=== PATIENT | male | born 1970 | race Caucasian/White ===

== ENCOUNTER 2022-11-27 08:32 | Emergency (ER) | payer OTHER, SELFPAY ==
--- NOTE | ~2022-11-27 | XR_ITS ---
EXAMINATION: XR CHEST CLINICAL INFORMATION: Lung cancer, shortness of breath. COMPARISON: 09/03/2018 chest radiograph. TECHNIQUE: Frontal view of the chest was obtained. FINDINGS: Opacities are seen in the mid lung pop bilaterally. Opacities on the left upper and more nodular appearance. The heart is unremarkable. Superior mediastinal soft tissue fullness is noted. XR/XR chest 1V IMPRESSION: Pulmonary mediastinal findings are nonspecific and could represent an infectious/inflammatory process, but given the patient's history of cancer, findings could represent malignancy. A chest CT scan is recommended as no recent study is available for comparison.
--- NOTE | ~2022-11-27 | CT_ITS ---
EXAMINATION: CT HEAD WITHOUT CONTRAST CLINICAL INFORMATION: Right-sided weakness. Lung cancer. Rule out mass effect/stroke. COMPARISON: None available. TECHNIQUE: Contiguous axial imaging was performed from the skull base to vertex without intravenous administration of contrast. This CT examination was performed using dose optimization techniques as appropriate, variously including the following: *Automated exposure control *Adjustment of mA and/or kV according to patient size (this includes techniques or standardized protocols for targeted exams where dose is matched to indication/reason for exam; i.e. extremities or head) *Use of iterative reconstruction technique FINDINGS: There is a heterogeneous density lesion within the left parietal lobe measuring up to 2.5 cm in size surrounded by severe vasogenic edema throughout the left cerebral white matter and corpus callosum resulting in 1 cm rightward midline shift and medialization of the left hippocampus. Neurosurgical consultation and full malignancy workup advised. There is no hydrocephalus. No acute territorial infarcts. No significant soft tissue findings. Paranasal sinuses and mastoid air cells are clear. CT/CT head/brain wo IV con IMPRESSION: There is a heterogeneous density lesion within the left parietal lobe measuring up to 2.5 cm in size surrounded by severe vasogenic edema throughout the left cerebral white matter and corpus callosum resulting in 1 cm rightward midline shift and medialization of the left hippocampus/uncus. Neurosurgical consultation, a brain MRI with and without IV contrast, and full malignancy workup are advised. Findings discussed with Dr Malik at 10:44 AM on November 27, 2022.
[2022-11-27 08:39] VITALS: BP 118/83; BP 129/80; PULSE 95; RESP 29; TEMP 36.4; O2SAT 87; O2SAT 91; BMI 27.2
--- NOTE | 2022-11-27 08:40 | ED_ITS ---
HPI - Weakness General Chief complaint: Stroke Stated complaint: STROKE ALERT:LKWT THURSDAY,FALL OOB,R WEAK Time Seen by Provider: 11/27/22 08:36 Source: patient, EMS and other (Mother , daughter- Leatha Nunez ) Mode of arrival: EMS Limitations: no limitations History of Present Illness HPI Narrative: 52-year-old male who was sent to the emergency department for evaluation of falling out of bed. The paramedics noted that the patient had right facial droop, right arm and right leg weakness which the patient states started on Thursday11/21/2022 (6 days prior to evaluation). The patient was made a stroke alert however given the fact that his symptoms started 6 days prior, patient was brought to emergency room stretcher and evaluated. Patient states he does have a history of lung cancer but cannot give me any details. He states that he has been feeling weak. He states he has had a cough which is occasionally productive of blood. He feels short of breath. He has had nausea and vomiting. He states he has had intermittent abdominal pain. He denied fever or chills. The patient is not been at this facility before and he was not able to give any details about his lung cancer. The patient's mother and daughter are here but they also do not know any details about his lung cancer. They did tell me that he had a biopsy at [facility] and that his PCP who has been managin g his care is Dr. Potter. I will attempt to get information from [facility]. I did obtain a record from the patient's PCP and a record from [facility] regarding his biopsy. 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 Social history: Patient smokes daily cannot tell me how many cigarettes he smokes, he cannot tell me how long he smoked 4. He denies alcohol use but does have a history a of alcohol use disorder. Patient smokes marijuana daily. Social History Social History Alcohol intake: unknown Smoked in Last 30 Days: Yes Use of substances other than those prescribed or required for medical reasons: No Advance Directives: No Advance Directives Information Provided: Yes Physical Exam Vital Signs: Vital Signs: Last Vital Signs Temp 97.5 F 11/27/22 08:39 Pulse 104 H 11/27/22 13:34 Resp 28 H 11/27/22 13:34 BP 123/76 11/27/22 13:34 Pulse Ox 92 11/27/22 13:34 O2 Del Method Nasal Cannula 11/27/22 13:34 O2 Flow Rate 2 11/27/22 13:34 BMI result Body Mass Index 27.2 Const: Other: Awake, alert, male patient, answers questions appropriately, does not appear to be in distress HEENT: Head: Yes normal to inspection, Yes normocephalic and Yes atraumatic Ears: external ears normal General nose exam: Normal external nose present Face and sinus: Yes normal facial exam Mouth: Normal oral and palatal mucosa present Throat: Yes posterior oropharynx normal Eyes: General: appearance normal, both eyes and all related structures Neck: Neck: Yes normal visual inspection, Yes no lymphadenopathy, Yes trachea midline and Yes supple Chest: Chest palpation & inspection: normal inspection of the chest and normal palpation of entire chest wall Resp: Other: Diffuse wheezing and rhonchi, diminished breath sounds right greater than left Effort & Inspection: normal respiratory effort and able to speak in complete sentences Auscultation: clear to auscultation bilaterally Cardio: Rate: regular rate Rhythm: regular rhythm Heart sounds: S1 normal heart sound present, S2 normal heart sound present and no murmurs GI: Inspection: Yes normal to inspection Palpation (GI): Soft to palpation, nontender and no guarding Auscultation: normal bowel sounds : General: Yes no CVA tenderness Back/Spine/Pelvis: Back: no CVA tenderness Skin: General skin exam: no rashes or lesions noted Neuro: Other: Patient has a right facial droop, right arm and right lower extremity paralysis Extrem: Other: Patient does have dependent edema of his right upper and right lower extremity most likely caused by his paralysis Psych: Appearance: grossly normal Affect: normal affect Attitude: cooperative Medications Administered Generic Name Dose Route Start Last Admin Trade Name Freq PRN Reason Stop Dose Admin Lactated Ringer's 1,000 mls @ 100 mls/hr 11/27/22 13:30 11/27/22 13:33 Lr IVCONT 100 mls/hr .Q10H COOPER Administration Discontinued Medications Generic Name Dose Route Start Last Admin Trade Name Freq PRN Reason Stop Dose Admin Albuterol Sulfate 5 mg 11/27/22 08:47 11/27/22 09:57 Albuterol Sulfate 2.5 Mg/0.5 Ml Vial.Neb INHALE 11/27/22 08:48 5 mg ONCE ONE Administration Dexamethasone Sodium Phosphate 10 mg 11/27/22 11:21 11/27/22 12:04 Dexamethasone Sod Phosphate 10 Mg/Ml Vial IVPUSH 11/27/22 11:22 10 mg ONCE ONE Administration Cefepime HCl 2 gm/ Sodium 50 mls @ 100 mls/hr 11/27/22 11:21 11/27/22 12:44 Chloride IV 11/27/22 11:50 Infused ONCE ONE Infusion Levetiracetam 500 mg in 100 mls @ 400 mls/hr 11/27/22 11:47 11/27/22 12:44 Keppra IV 11/27/22 12:01 Infused ONCE ONE Infusion Lorazepam 2 mg 11/27/22 12:31 11/27/22 12:39 Lorazepam 2 Mg/Ml Vial IVPUSH 11/27/22 12:32 2 mg ONCE ONE Administration Lorazepam 1 mg 11/27/22 13:21 11/27/22 13:30 Lorazepam 2 Mg/Ml Vial IVPUSH 11/27/22 13:22 1 mg STAT STA Administration Medical Decision Making Medical Decision Making MDM Narrative: 52-year-old male with a history of alcohol use disorder, alcoholic liver cirrhosis, depression, hyperlipidemia, tobacco use disorder, non-small cell adenocarcinoma of the lung (left upper lobe) diagnosed by biopsy at [facility] on 09/05/2022-patient has received no treatment who presents emergency department for evaluation for multiple falls (patient has fallen each day x3 days and did fall today) and right facial droop with right upper and lower extremity paralysis x6 days. Patient states that he has had a productive cough is occasionally coughs up blood. He is complaining of shortness of breath and dyspnea. Patient's examination did reveal a right facial droop with right upper and lower extremity paralysis and dependent edema of these extremities. His exam was otherwise unremarkable. I ordered the following evaluation on the patient: CBC, CMP, COVID-19, lactic acid, troponin, alcohol level, lipase, PT/INR, PTT, CT scan of the brain without IV contrast, chest x-ray. Patient was placed on a cardiac and O2 saturation monitor. Patient's O2 saturation was 87% on room air and was placed on 2 L of oxygen via nasal cannula. 1127: Patient's laboratory evaluation [place] [address], elevated INR 1.3, elevated lactic acid 3.1, low potassium 3.1. Patient's blood ethanol level was also elevated 277 Chest x-ray is concerning for left-sided infiltrate versus mass. CT scan of the brain revealed severe left-sided angioedema with right shift and uncal herniation. I ordered Decadron 10 mg IV for vasogenic edema pain I ordered cefepime 2 g IV for possible pneumonia. Given his significant vase edema, I will not give this patient IV fluid at this time. I did discuss these findings with the patient and the patient's daughters. I will discuss transfer with [facility] for transfer. 1455: I did discuss the patient with the covering with neurosurgeon at [facility], Dr. Mason Sahni. He felt that there was no acute neurosurgical intervention required at this time. He recommended treatment with dexamethasone 10 mg IV now and 4 mg q.6 hours. He also recommended prophylactic treatment again seizures with Keppra therefore I ordered Keppra 500 mg IV, his recommendation was 500 mg IV q.12 hours. He recommended discussion with Oncology and medicine for transfer in a mission to [facility]. I did discuss the patient with the oncologist Dr. Smith who recommended transfer to [facility] for further evaluation of the mass and also to rule out the possibility of an abscess verses metastatic disease. I did discuss the patient with the covering admitting hospitalist and the patient was accepted as an ER to hospital transfer pain appropriate bed. The accepting physician is The patient did become agitated, and he was treated with Ativan 2 mg IV followed by Ativan 1 mg IV. Differential Diagnosis Differential Diagnoses: The differential diagnosis associated with the presentation includes Differential diagnosis includes but is not limited to stroke, metastatic brain lesion with mass effect, cerebral bleed, skull fracture, pneumonia, pulmonary embolism, electrolyte abnormality, alcohol intoxication Admission/Observation Consideration of admission/observation: Escalation of care including admission/observation considered Lab Data MDM Lab Attestation statement: I reviewed the patient's lab results. My interpretation patient's laboratory evaluation is as follows: Thrombocytopenia 44,000-this is new but we have no recent values on the patient. Low potassium 3.1. Elevated INR 1.3. Elevated blood ethanol level 277, elevated lactic acid 3.1. 11/27/22 09:01 11/27/22 09:02 Labs: Lab Results 11/27/22 11/27/22 11/27/22 Range/Units 09:01 09:01 09:01 WBC 5.6 (4.8-10.8) X10*3/uL RBC 4.87 (4.60-5.80) X10*6/uL Hgb 15.3 (14.0-18.0) g/dl Hct 47.1 (42.0-52.0) % MCV 96.7 (80.0-98.0) fL MCH 31.4 (27.0-33.0) pg MCHC 32.5 (31.0-36.0) g/dl RDW 14.3 (11.0-16.0) % Plt Count 44 L (160-400) X10*3/uL MPV 12.1 (9.4-12.4) fL Immature Gran % (Auto) 0.4 (0.0-0.4) % Neut % (Auto) 60.1 (45-73) % Lymph % (Auto) 24.6 (20-40) % Turner % (Auto) 9.3 (2-11) % Eos % (Auto) 4.5 H (0-4) % Baso % (Auto) 1.1 (0-2) % Lymph # (Auto) 1.4 (1.2-4.9) X10*3/uL Turner # (Auto) 0.5 (0.1-1.2) X10*3/uL Eos # (Auto) 0.3 (0.0-0.4) X10*3/uL Baso # (Auto) 0.1 (0.0-0.2) X10*3/uL Abs Immat Gran (auto) 0.02 (0.00-0.03) X10*3/uL Absolute Neuts (auto) 3.4 (2.0-8.3) x10*3/uL Absolute Nucleated RBC 0.000 (0.0-0.012) X10*3/uL Nucleated RBC % (auto) 0.0 (0.0-0.2) /100WBC PT 15.2 H (11.1-13.3) SEC INR 1.3 H (0.9-1.1) APTT 28.4 (26.0-36.4) SEC Sodium (135-145) mmol/L Potassium (3.3-5.1) mmol/L Chloride (96-108) mmol/L Carbon Dioxide (22-29) mmol/L Anion Gap (12-20) BUN (9-16) mg/dL Creatinine (0.5-1.4) mg/dL Estim Creat Clear Calc Estimated GFR POC Glucose (60-115) mg/dL Random Glucose (60-115) mg/dL Lactic Acid (0.5-2.0) mmol/L Lactic Acid F/U @ 2Hr (0.5-2.0) mmol/L Calcium (8.4-10.2) mg/dL Total Bilirubin (0.0-1.0) mg/dL AST (5-37) U/L ALT (0-40) U/L Alkaline Phosphatase (39-117) U/L Troponin I High Sens (<3.5-35.0) ng/L Total Protein (6.5-8.0) g/dL Albumin (3.5-5.0) g/dL Lipase (8-78) U/L Ethyl Alcohol mg/dL COVID-19 (ODESSA) Negative (Negative) COVID-19 Clin Com See Note 11/27/22 11/27/22 11/27/22 Range/Units 09:01 09:01 09:02 WBC (4.8-10.8) X10*3/uL RBC (4.60-5.80) X10*6/uL Hgb (14.0-18.0) g/dl Hct (42.0-52.0) % MCV (80.0-98.0) fL MCH (27.0-33.0) pg MCHC (31.0-36.0) g/dl RDW (11.0-16.0) % Plt Count (160-400) X10*3/uL MPV (9.4-12.4) fL Immature Gran % (Auto) (0.0-0.4) % Neut % (Auto) (45-73) % Lymph % (Auto) (20-40) % Turner % (Auto) (2-11) % Eos % (Auto) (0-4) % Baso % (Auto) (0-2) % Lymph # (Auto) (1.2-4.9) X10*3/uL Turner # (Auto) (0.1-1.2) X10*3/uL Eos # (Auto) (0.0-0.4) X10*3/uL Baso # (Auto) (0.0-0.2) X10*3/uL Abs Immat Gran (auto) (0.00-0.03) X10*3/uL Absolute Neuts (auto) (2.0-8.3) x10*3/uL Absolute Nucleated RBC (0.0-0.012) X10*3/uL Nucleated RBC % (auto) (0.0-0.2) /100WBC PT (11.1-13.3) SEC INR (0.9-1.1) APTT (26.0-36.4) SEC Sodium 143 (135-145) mmol/L Potassium 3.1 L (3.3-5.1) mmol/L Chloride 104 (96-108) mmol/L Carbon Dioxide 23 (22-29) mmol/L Anion Gap 19 (12-20) BUN 6 L (9-16) mg/dL Creatinine 0.76 (0.5-1.4) mg/dL Estim Creat Clear Calc 118.7 Estimated GFR > 60 POC Glucose (60-115) mg/dL Random Glucose 99 (60-115) mg/dL Lactic Acid 3.1 H* (0.5-2.0) mmol/L Lactic Acid F/U @ 2Hr (0.5-2.0) mmol/L Calcium 8.5 (8.4-10.2) mg/dL Total Bilirubin 0.4 (0.0-1.0) mg/dL AST 44 H (5-37) U/L ALT 30 (0-40) U/L Alkaline Phosphatase 98 (39-117) U/L Troponin I High Sens 6.3 (<3.5-35.0) ng/L Total Protein 6.9 (6.5-8.0) g/dL Albumin 3.7 (3.5-5.0) g/dL Lipase 9 (8-78) U/L Ethyl Alcohol mg/dL COVID-19 ([facility]ESSA) (Negative) COVID-19 Clin Com 11/27/22 11/27/22 11/27/22 Range/Units 09:11 09:18 12:27 WBC (4.8-10.8) X10*3/uL RBC (4.60-5.80) X10*6/uL Hgb (14.0-18.0) g/dl Hct (42.0-52.0) % MCV (80.0-98.0) fL MCH (27.0-33.0) pg MCHC (31.0-36.0) g/dl RDW (11.0-16.0) % Plt Count (160-400) X10*3/uL MPV (9.4-12.4) fL Immature Gran % (Auto) (0.0-0.4) % Neut % (Auto) (45-73) % Lymph % (Auto) (20-40) % Turner % (Auto) (2-11) % Eos % (Auto) (0-4) % Baso % (Auto) (0-2) % Lymph # (Auto) (1.2-4.9) X10*3/uL Turner # (Auto) (0.1-1.2) X10*3/uL Eos # (Auto) (0.0-0.4) X10*3/uL Baso # (Auto) (0.0-0.2) X10*3/uL Abs Immat Gran (auto) (0.00-0.03) X10*3/uL Absolute Neuts (auto) (2.0-8.3) x10*3/uL Absolute Nucleated RBC (0.0-0.012) X10*3/uL Nucleated RBC % (auto) (0.0-0.2) /100WBC PT (11.1-13.3) SEC INR (0.9-1.1) APTT (26.0-36.4) SEC Sodium (135-145) mmol/L Potassium (3.3-5.1) mmol/L Chloride (96-108) mmol/L Carbon Dioxide (22-29) mmol/L Anion Gap (12-20) BUN (9-16) mg/dL Creatinine (0.5-1.4) mg/dL Estim Creat Clear Calc Estimated GFR POC Glucose 101 (60-115) mg/dL Random Glucose (60-115) mg/dL Lactic Acid (0.5-2.0) mmol/L Lactic Acid F/U @ 2Hr 3.1 H* (0.5-2.0) mmol/L Calcium (8.4-10.2) mg/dL Total Bilirubin (0.0-1.0) mg/dL AST (5-37) U/L ALT (0-40) U/L Alkaline Phosphatase (39-117) U/L Troponin I High Sens (<3.5-35.0) ng/L Total Protein (6.5-8.0) g/dL Albumin (3.5-5.0) g/dL Lipase (8-78) U/L Ethyl Alcohol 277 mg/dL COVID-19 ([facility]ESSA) (Negative) COVID-19 Clin Com Independent Interpretation I performed an independent interpretation of an: EKG Interpretation: My interpretation the patient's 12 EKG is as follows done at 09:05 hours: Normal sinus rhythm rate of 91, normal RI interval, QRS duration QTC interval, no ST segment elevation, no ST segment depression, no significant T-wave abnormalities, no PVCs, no PACs, no old EKG for comparison My independent interpretation the patient's chest x-ray is as follows: And widened mediastinum, left sided infiltrate My independent interpretation of patient's CT scan of the brain is large amount of left parietal edema with right shift Radiology Impression Discussion of test interpretation with radiology: I discussed test interpretation with the radiologist Radiologist Impression: XR chest 1V IMPRESSION: Pulmonary mediastinal findings are nonspecific and could represent an infectious/inflammatory process, but given the patient's history of cancer, findings could represent malignancy. A chest CT scan is recommended as no recent study is available for comparison. Dictated By:Nader Patton MD CT head/brain wo IV con IMPRESSION: There is a heterogeneous density lesion within the left parietal lobe measuring up to 2.5 cm in size surrounded by severe vasogenic edema throughout the left cerebral white matter and corpus callosum resulting in 1 cm rightward midline shift and medialization of the left hippocampus/uncus. Neurosurgical consultation, a brain MRI with and without IV contrast, and full malignancy workup are advised. Findings discussed with Dr Malik at 10:44 AM on November 27, 2022. Dictated By:Nader Mckeon MD Independent Historian Clinical information obtained from an independent historian. History obtained from or confirmed by: Parent (Mother) and Other (2 daughters) External Record Review External record reviewed: Inpatient record ([facility] biopsy results) and Outpatient record (PCPs office note) Critical Care Time Critical Care Time Critical Care Time: Yes Total Critical Care Time: 60 Attestation: Critical Care: The patient was critically ill with a high probability of imminent or life threatening deterioration. I spent greater than 30 minutes of discontinuous time evaluating the patient,delivering critical care at the bedside, discussing and evaluating pertinent data with consultants. Critical care time does not include time spent performing separately billable procedures or teaching. Total time spent performing critical care was 80 minutes. Discharge Plan Discharge Clinical Impression: Adenocarcinoma of left lung, Lung cancer metastatic to brain, Vasogenic cerebral edema, Uncal herniation Alcohol intoxication Qualifiers: Complication of substance-induced condition: uncomplicated Qualified Code(s): F10.920 - Alcohol use, unspecified with intoxication, uncomplicated Pneumonia Qualifiers: Pneumonia type: due to unspecified organism Laterality: left Lung location: lower lobe of lung Qualified Code(s): J18.9 - Pneumonia, unspecified organism Patient Disposition: Critical Access Hospital Hospital Transfer Details: [facility]
--- NOTE | 2022-11-27 08:40 | ECG_ITS ---
Test Reason : stroke Blood Pressure : / mmHG Vent. Rate : 091 BPM Atrial Rate : 091 BPM P-R Int : 150 ms QRS Dur : 086 ms QT Int : 380 ms P-R-T Axes : 065 265 053 degrees QTc Int : 467 ms Normal sinus rhythm Right superior axis deviation Pulmonary disease pattern Abnormal ECG When compared with ECG of 02-SEP-2018 23:50, QRS axis Shifted left Referred By: David Malik Electronically Signed By:DANAE RODRIGUEZ MD
--- NOTE | 2022-11-27 09:11 | PC.NURSE ---
pt BIBA from home where he lives with his mother. pt has a recent dx of lung CA that he was ? dx with at [facility]. pt not wanting tx for this. on thursday pt began developing R sided weakness, difficulty with finding words. per pts mother, he has fallen 3 times in the past several days. SaO2 87% on room air. LLS dim to auscultation. R lower base rales. pt with audible wheezing. difficult to understand, pt not making a lot of sense when he responds to questioning. 20G in RAC placed by this RN. EMS placed a 20 in the L forarm. sepsis protocol initiated.
[2022-11-27 09:12] LABS: MANUAL DIFF FLAG NO
[2022-11-27 09:14] LABS: Basophils Absolute Auto 0.1 X10*3/uL (0.0-0.2); Basophils Percent Auto 1.1 % (0-2); Eosinophils Absolute Auto 0.3 X10*3/uL (0.0-0.4); Eosinophils Percent Auto 4.5 % (0-4); Hematocrit 47.1 % (42.0-52.0); Hemoglobin 15.3 g/dl (14.0-18.0); Imm Gran Abs Auto 0.02 X10*3/uL (0.00-0.03); Imm Gran Pct Auto 0.4 % (0.0-0.4); Lymphocytes Absolute Auto 1.4 X10*3/uL (1.2-4.9); Lymphocytes Percent Auto 24.6 % (20-40); Mean Corpuscular HGB Conc 32.5 g/dl (31.0-36.0); Mean Corpuscular Hemoglobin 31.4 pg (27.0-33.0); Mean Corpuscular Volume 96.7 fL (80.0-98.0); Monocytes Absolute Auto 0.5 X10*3/uL (0.1-1.2); Monocytes Percent Auto 9.3 % (2-11); Neutrophils Absolute Auto 3.4 x10*3/uL (2.0-8.3); Neutrophils Percent Auto 60.1 % (45-73); Red Blood Count 4.87 X10*6/uL (4.60-5.80); Red Cell Distribution Width 14.3 % (11.0-16.0); White Blood Count 5.6 X10*3/uL (4.8-10.8)
[2022-11-27 09:15] LABS: Glucose, Whole Blood 101 mg/dL (60-115)
[2022-11-27 09:25] LABS: COVID-19 Test Negative (Negative); IDNOW Serial# 08D9AD1C
[2022-11-27 09:29] LABS: Lactic Acid 3.1 mmol/L (0.5-2.0)
[2022-11-27 09:31] LABS: INTERNATIONAL NORM RATIO 1.3 (0.9-1.1); Prothrombin Time 15.2 SEC (11.1-13.3)
[2022-11-27 09:31] LABS: Alanine Aminotransferase 30 U/L (0-40); Albumin Level 3.7 g/dL (3.5-5.0); Alkaline Phosphatase 98 U/L (39-117); Anion Gap 19 (12-20); Aspartate Amino Transferase 44 U/L (5-37); Bilirubin Total 0.4 mg/dL (0.0-1.0); Blood Urea Nitrogen 6 mg/dL (9-16); Calcium 8.5 mg/dL (8.4-10.2); Carbon Dioxide 23 mmol/L (22-29); Chloride 104 mmol/L (96-108); Creatinine Clr Calc Pharmacy 118.7; Estimated Glomerular Filt Rate > 60; Glucose Random 99 mg/dL (60-115); Lipase 9 U/L (8-78); Potassium 3.1 mmol/L (3.3-5.1); Sodium 143 mmol/L (135-145); Total Protein 6.9 g/dL (6.5-8.0)
[2022-11-27 09:34] LABS: Partial Thromboplastin Time 28.4 SEC (26.0-36.4)
[2022-11-27 09:37] LABS: Troponin-I High Sensitivity 6.3 ng/L (<3.5-35.0)
[2022-11-27 09:39] LABS: Mean Platelet Volume 12.1 fL (9.4-12.4)
[2022-11-27 09:40] LABS: Platelet Count 44 X10*3/uL (160-400)
[2022-11-27 09:43] LABS: Ethanol 277 mg/dL
[2022-11-27] MEDS: Albuterol Sulfate 2.5 MG/0.5 ML VIAL.NEB 5 MG INHALE (09:57)
[2022-11-27 09:59] VITALS: PULSE 96; RESP 24; O2SAT 96
[2022-11-27 10:46] VITALS: BP 125/88; PULSE 100; RESP 25; O2SAT 93
[2022-11-27 11:07] LABS: Reflex Lactate? Lactic Acid Added
[2022-11-27] MEDS: dexAMETHasone sod phosphate 10 MG/ML VIAL IVPUSH (12:04)
[2022-11-27] MEDS: cefEPime HCl 2 GM in 0.9 % Sodium Chloride 50 ML IV (12:12)
[2022-11-27] MEDS: levETIRAcetam in NaCl (iso-os) 500 MG/100 ML PIGGYBACK 400 MG IV (12:29)
[2022-11-27] MEDS: LORazepam 2 MG/ML VIAL IVPUSH (12:39)
[2022-11-27 12:53] LABS: ~Lactic Acid-LAB USE ONLY 3.1 mmol/L (0.5-2.0)
[2022-11-27] MEDS: LORazepam 2 MG/ML VIAL 1 MG IVPUSH ×2 (13:30→15:33)
--- NOTE | 2022-11-27 13:30 | PC.NURSE ---
ERICH Gary visualized ativan 1mg as unable to scan med barcode due to expiration sticker being over the bar code
[2022-11-27] MEDS: Lactated Ringers 1,000 ML 100 ML IVCONT (13:33)
[2022-11-27 13:34] VITALS: BP 123/76; PULSE 104; RESP 28; O2SAT 92
[2022-11-27 14:29] LABS: Reflex Lactate? 2 Y
--- NOTE | 2022-11-27 14:45 | PC.NURSE ---
pt HR dropped to 42bpm while he was asleep. informed MD schmid. pt HR corrected to 90s without intervention. VSS. pt remains asleep
[2022-11-27 15:20] VITALS: BP 134/95; PULSE 102; RESP 35; O2SAT 92
--- NOTE | 2022-11-27 15:42 | PC.NURSE ---
NURSE TO NURSE REPORT GIVEN TO [facility]
[2022-11-27 16:48] LABS: ~Lactic Acid-LAB USE ONLY 2.3 mmol/L (0.5-2.0)
== END 2022-11-27 16:15 | disposition short-term general hospital (02) ==
PROVIDERS: Emergency Provider Emergency Medicine Emergency Medical Services; PCP Internal Medicine
DX: F10.129 Alcohol abuse with intoxication, unspecified (principal); Y90.8 Blood alcohol level of 240 mg/100 ml or more; J18.9 Pneumonia, unspecified organism; R06.02 Shortness of breath; R94.31 Abnormal electrocardiogram [ECG] [EKG]; R51.9 Headache, unspecified; Z20.822 Contact with and (suspected) exposure to COVID-19; Z20.828 Contact with and (suspected) exposure to other viral communicable diseases; Z79.899 Other long term (current) drug therapy
CPT/HCPCS: 36415; 70450; 71045; 80053; 80307; 82947; 83605; 83690; 84484; 85025; 85610; 85730; 87040; 87635; 93005; 94640; 96365; 96375; 96376; 99285; J0692; J1100; J1953; J2060

== ENCOUNTER → 2022-11-27 08:40 | Outpatient (BNV) | payer OTHER, SELFPAY | PROVIDERS: Emergency Provider Emergency Medicine Emergency Medical Services; PCP Internal Medicine; Visit Provider Internal Medicine Cardiovascular Disease | DX: I63.9 Cerebral infarction, unspecified (principal) | CPT/HCPCS: 93010 ==

== ENCOUNTER 2022-12-21 13:36 | Emergency (ER) | payer OTHER, SELFPAY ==
--- NOTE | ~2022-12-21 | XR_ITS ---
EXAMINATION: XR WRIST, RIGHT XR HAND, RIGHT CLINICAL INFORMATION: Laceration. COMPARISON: None available. TECHNIQUE: Frontal lateral obliques right hand, scaphoid view, total of 5 views FINDINGS: RIGHT WRIST: The bones and soft tissues are normal. No fracture. Alignment is anatomic. Joint spaces are maintained. No erosions or soft tissue calcifications. RIGHT HAND: Soft tissue swelling, correlate with patient history of laceration of the third and fourth fingers, no associated fractures. Bone alignments are satisfactory. XR/XR hand wrist RT IMPRESSION: * No radiographic evidence of acute fracture. * Soft tissue swelling, correlate with patient history of laceration of the third and fourth fingers.
[2022-12-21 14:12] VITALS: BP 131/82; PULSE 91; RESP 18; TEMP 37.4; O2SAT 96; BMI 26.5
--- NOTE | 2022-12-21 14:15 | ED.GENADULT ---
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 Patient reports minimal pain but reports difficulty controlling the bleeding due to Eliquis. Unsure of most recent tetanus. Denies numbness or tingling. complaint: laceration of fingers Onset (ago): hour(s) Location: right and upper extremity Radiation: non-radiation Severity: mild Quality: aching Pain Consistency: constant Relieving factors: none Exacerbating factors: none Associated symptoms: denies other symptoms Treatments prior to arrival: none Related Data Previous Rx's Medication Instructions Recorded amoxicillin 875 mg-potassium 1 tab PO BID #10 tabs 12/21/22 clavulanate 125 mg tablet Allergies Allergy/AdvReac Type Severity Reaction Status Date / Time No Known Allergies Allergy Unverified 01/19/20 15:50 [No Known Allergies*] Review of Systems Review of Systems: As per HPI. Yes all other systems are reviewed and are negative Constitutional: Constitutional: Reports as per HPI [facility], [facility] Social History Social History Alcohol intake: unknown Advance Directives: Yes Advance Directives Information Provided: Yes Advance Directives on File: No Physical Exam ED Vital Signs: Vital Signs - 24 hr 12/21/22 14:12 12/21/22 15:41 Temperature 99.3 F 97.7 F Pulse Rate 91 67 Respiratory Rate 18 18 Blood Pressure 131/82 106/71 Pulse Oximetry 96 97 Oxygen Delivery Method Room Air Room Air BMI result Body Mass Index 26.5 Vital signs have been reviewed and appear to be correct. Blood pressure normal. Heart rate normal. Respiratory rate normal. Temperature normal. Oxygen saturation normal. Const General: cooperative, healthy appearing and no acute distress Orientation/consciousness: oriented to person, oriented to place, oriented to time and patient oriented x3 Limitations: no limitations HENMT Head: Yes normocephalic and Yes atraumatic Ears: external ears normal General nose exam: Normal external nose present Face and sinus: Yes face symmetric Mouth: oropharynx normal and moist mucous membranes Throat: Yes uvula midline Eyes Pupils: Equal, round and reactive pupils present Neck Neck: Yes normal visual inspection and Yes supple Resp Effort & Inspection: normal respiratory effort and able to speak in complete sentences Auscultation: clear to auscultation bilaterally Cardio Rate: regular rate Rhythm: regular rhythm Heart sounds: S1 normal heart sound present and S2 normal heart sound present GI Palpation (GI): Soft to palpation and nontender Auscultation: normoactive bowel sounds General: Yes no CVA tenderness Back/Spine/Pelvis Back: no CVA tenderness Skin General skin exam: elasticity normal and turgor normal Neuro General: oriented to person, oriented to place, oriented to time, patient oriented x3, moves all extremities, no focal motor deficits and CN's II-XI intact bilaterally Cranial nerves: Yes Equal, round and reactive pupils present Cognition (Neuro): normal cognition Extrem General: Yes full ROM, Yes no pedal edema and Yes no calf tenderness Right upper extremity: Extremity exam: right hand Details: laceration 3rd digit palmar aspect distal Details: irregular (distal tip macerated), avulsion, actively bleeding, involving subcutaneous tissue and with sensation intact, 4th digit palmar aspect distal Details: avulsion, actively bleeding, superficial and with sensation intact Psych Mental Status: mental status grossly normal Affect: normal affect Thought process: Normal thought process present Course Course Course Narrative: RME: 52 yold male with lung CA presents to the ED for r Medications Administered Discontinued Medications Generic Name Dose Route Start Last Admin Trade Name Freq PRN Reason Stop Dose Admin Diphtheria/Tetanus/Acell Pertussis 0.5 ml 12/21/22 15:08 12/21/22 15:16 Diphth,Pertus(Acell),Tet Adult 0.5 Ml Syringe IM 12/21/22 15:09 0.5 ml .ONCE ONE Administration Lidocaine HCl 10 ml 12/21/22 16:10 12/21/22 16:26 Lidocaine Hcl 1 % Mpf 5 Ml Vial INFILTRATI 12/21/22 16:11 10 ml ONCE ONE Administration Medical Decision Making Medical Decision Making MDM Narrative: Patient is a 52-year-old right hand dominant male with 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 Independent Interpretation I performed an independent interpretation of an: Plain X-Ray Interpretation: No evidence of fracture Radiology Impression Discussion of test interpretation with radiology: I have reviewed the radiologist's reading. Radiologist Impression: XR/XR hand wrist RT IMPRESSION: ? *? No radiographic evidence of acute fracture. ? *? Soft tissue swelling, correlate with patient history of laceration of the third and fourth fingers. ? Discharge Plan Discharge Clinical Impression: Laceration of finger of right hand Patient Disposition: Home, Self-Care Instructions: Care For Your Stitches (DC), Laceration (DC), Finger Laceration (ED) Additional Instructions: You have been evaluated in the emergency department today for a laceration to your 3rd and 4th fingers of your right hand. Your lacerations were repaired in the emergency department with sutures. Please keep the area surrounding the lacerations clean and dry and keep the dressing in place for the next 24 hours. After that please change the dressings and assess the wounds daily. Keep the area out of direct sunlight for the next 6 months to help prevent scarring. You should have the sutures removed in 10-14 days. If you develop fever, redness, swelling at the site of your laceration, or thick yellow drainage please come back to the ER for a wound check. Please call your primary care provider for follow up. Your Tdap (tetanus) was updated today. Prescriptions: New amoxicillin-pot clavulanate 875-125 mg tablet 1 tab PO BID Qty: 10 0RF Interventions: ED Discharge Assessment Last Done: 12/21/22 17:16 Discharge Date/Time: 12/21/22 17:16
--- OUTSIDE RECORDS SUMMARY | 2022-12-21 14:27 | XMS_ITS | Continuity of Care Document ---
Author Name Unknown Organization [facility] ter Address [address] [place] [id number] Care Team Providers Care Knifer Up Name Role Phone Paulina BOWER, Rojelio Glover Primary Care Physician Encounter [facility] Date(s): 11/27/22 - 12/02/[address] [address] Discharge Disposition: A-D/C Home Attending Physician: Gonzalez Hdez MD Admitting Physician: Markie Mccann MD Referring Physician: Markie Mccann MD Allergies, Adverse Reactions, Alerts No Known Medication Allergies Substance Reaction Severity Status Other Environmental Allergy POLLEN Active Immunizations Given and Recorded Vaccine Date Status Refusal Reason Influenza Virus Vaccine (oldterm) 03/05/22 Recorde d SARS-CoV-2 (COVID-19) mRNA-1273 vaccine 10/02/20 R ecorded SARS-CoV-2 (COVID-19) mRNA-1273 vaccine 08/31/20 R ecorded tetanus/diphtheria/pertussis, acel(Tdap) 03/24/19 Given tetanus/diphtheria/pertussis, acel(Tdap) 03/22/09 Given influenza virus vaccine, inactivated 03/24/19 Give n influenza virus vaccine, inactivated 1 04/05/18 Gi purvi Tetanus Toxoid Vaccine (oldterm) 05/04/99 Given 1Result Comment: [04/05/2018] [facility] [id number] Medications acetaminophen 325 mg oral tablet 975 mg, By Mouth, Once, PRN, Refills 0, Maintenance, Pain , Moderate, 09/05/22 16:50:00 EDT, Partial fill upon patient request if the prescription is for a schedule II opioid drug. Start Date: 09/05/22 Status: Ordered Albuterol (Eqv-ProAir HFA) 90 mcg/inh inhalation aerosol 2 puffs, Inhalation, Every 6 hours, # 1 each, 1 Refills, Maintenance, 04/05/21 10:17:00 EST, [id number], Partial fill upon patient request if the prescription is for a schedule II opioid drug., 2 puffs Inhalation Every 6 hours, 178, cm, ... Start Date: 04/05/21 Status: Ordered apixaban 5 mg oral tablet 1 tablet = 5 mg, By Mouth, 2 times a day, # 60 tablet, 2 Refills, Maintenance, 10/24/22 14:55:00 EDT, Tablet, [id number], Partial fill upon patient request if the prescription is for a schedule II opioid drug., 180, cm, 10/03/22 9:16:00 EDT, H... Start Date: 10/24/22 Status: Ordered Daily Meg oral tablet 1 tablet, By Mouth, Daily, # 90 tablet, 1 Refills, [id number], 90, TAKE 1 TABLET BY MOUTH EVERY DAY, 178, cm, 08/08/21 12:59:00 EDT, Height Start Date: 10/17/21 Status: Ordered dexamethasone 4 mg oral tablet 1 tablet = 4 mg, By Mouth, 3 times a day, for 14 days, to be tapered by radiation oncology, # 42 tablet, 0 Refills, Acute 12/16/22 17:18:00 EDT, 12/02/22 17:18:00 EDT, Tablet, [id number], Partial fill upon patient request if the prescription i... Start Date: 12/02/22 Stop Date: 12/16/22 Status: Ordered famotidine 20 mg oral tablet 20 mg, 1, tablet, By Mouth, 2 times a day, # 28 tablet, Refills 0, Tot. Refills 0, Maintenance, 12/02/22 17:19:00 EDT, Route to Pharmacy Electronically, [id number], Partial fill upon patient request if the prescription is for a schedule II opi... Start Date: 12/02/22 Stop Date: 12/16/22 Status: Ordered Flonase 50 mcg/inh nasal spray 2 sprays, Nares, Both, Daily in AM, # 15.8 mL, 5 Refills, Maintenance, 10/29/21 8:58:00 EDT, [place],[id number], Partial fill upon patient request if the prescription is for a schedule II opioid drug., 2 sprays Nares, Both Daily in AM, 178, cm,... Start Date: 10/29/21 Status: Ordered folic acid 1 mg oral tablet 1, tablet, By Mouth, Daily, # 90 tablet, Refills 1, Maintenance, 09/10/22 11:41:00 EDT, Route to Pharmacy Electronically, [id number], 180, cm, 09/05/22 11:52:00 EDT, Height, 91.9, kg, 09/05/22 11:52:00 EDT, Dry Weight Start Date: 09/10/22 Status: Ordered levETIRAcetam 500 mg oral tablet 1 tablet = 500 mg, By Mouth, 2 times a day, # 60 tablet, 0 Refills, Maintenance, 12/02/22 17:21:00 EDT, Tablet, [id number], Partial fill upon patient request if the prescription is for a schedule II opioid drug., 180, cm, 12/02/22 11:34:00 EDT... Start Date: 12/02/22 Stop Date: 01/01/23 Status: Ordered mirtazapine 30 mg oral tablet 1 tablet = 30 mg, By Mouth, Daily at bedtime, # 90 tablet, 1 Refills, Maintenance, 08/05/22 10:01:00 EDT, Tablet, [id number], Partial fill upon patient request if the prescription is for a schedule II opioid drug., 178, cm, 08/05/22 9:49:00 ED... Start Date: 08/05/22 Status: Ordered naltrexone 50 mg oral tablet 1 tablet = 50 mg, By Mouth, Daily, # 30 tablet, 5 Refills, Maintenance, 12/02/22 17:18:00 EDT, Tablet, [id number], Partial fill upon patient request if the prescription is for a schedule II opioid drug., 180, cm, 12/02/22 11:34:00 EDT, Height,... Start Date: 12/02/22 Status: Ordered nicotine 21 mg/24 hr transdermal film, extended release 1 patch, Topically, Daily, for 30 days, apply to skin, # 30 patch, 0 Refills, Acute 01/01/23 17:20:00 EDT, 12/02/22 17:20:00 EDT, Patch, [id number], Partial fill upon patient request if the prescription is for a schedule II opioid drug., 1 pat... Start Date: 12/02/22 Stop Date: 01/01/23 Status: Ordered Symbicort 160mcg/4.5mcg Inhaler 2, puffs, Inhalation, 2 times a day, # 1 each, Refills 5, Tot. Refills 5, Maintenance, 09/18/20 8:45:00 EDT, Aerosol, Route to Pharmacy Electronically, [id number], [facility][id number], 178, cm, 09/18/20 8:15:00 EDT, Height, 77... Start Date: 09/18/20 Status: Ordered Problem List Condition Confirmation Course Effective Dates Status H ealth Status Informant Recovering alcoholic Confirmed Active Alcoholism Confirmed Active COPD (chronic obstructive pulmonary disease) Confirmed Active Concussion Confirmed Active Elevated liver enzymes Confirmed Active Marijuana use Confirmed Active Hyperlipidemia 1 Confirmed Active Lateral epicondylitis of right elbow Confirmed Active Low back pain Confirmed Active Major depression Confirmed Active Major depression Confirmed Active Fatty liver Confirmed Active Tobacco abuse 2 Confirmed Active 1given comprehesive chol diet handout 2counsel [id number] Results Radiology Reports * Exam Date Time Procedure Performing Provider Status 11/28/22 11:25 AM Chest Portable Zoran Warren; Au th (Verified) Notes: (Chest Portable) Reason For Exam: Shortness of Breath RESULT: Chest Portable Chest Portable Reason: Shortness of Breath; Clinical Question(s): Pneumonia COMPARISON: 09/05/2022 repeat care tech radiograph chest CT 11/28/2022 FINDINGS: Left lung mass and surrounding groundglass not significantly changed from prior care tech radiograph Airspace disease in the right midlung zone new from the prior plain film but without significant change from the prior care tech radiograph IMPRESSION: No change from prior care tech radiograph 11/28/2022 WSN: [id number] Ordering Physician: Kimberly Montes Dictated By: Julius Garcia MD Dictated Date/Time: 11/28/22 12:35 p Reviewed By: Julius Gacria MD Signed By: Julius Garcia MD Signed Date/Time: 11/28/22 12:35 pm Transcribed By: PATRICIA Transcribed Date/Time: 11/28/22 12:33 pm * Exam Date Time Procedure Performing Provider Status 11/28/22 9:[address] Chest W/O Contrast Jimmy Carrasco; Au th (Verified) Notes: (CT Chest W/O Contrast) Reason For Exam: Respiratory illness, nondiagnostic xray;Other: RESULT: CT Chest W/O Contrast CT Chest W/O Contrast INDICATION: Reason: Other:; Respiratory illness, nondiagnostic xray; Clinical Question(s): Interstitial Alveolar Infiltration; Order Comment: TECHNIQUE: Helical CT scan of the chest without IV contrast, formatted in 3 planes. Weight-based protocol was performed using automatic exposure control. CTDIvol Body: 11.24 mGy, DLP Body: 470 mGy*cm. COMPARISON: 08/26/2022 FINDINGS: Field Support Technician view findings, lines and tubes: None. Trachea and airways: Expiratory appearance of the trachea with trace dependent secretions. Narrowing of the lobar airways to the right upper lung, example series 601 image 46-51 and also to the rightlower lobe and left lower lobe secondary to mass effect. Lungs and pleura: Ground glass opacities in dependent distribution in the upper lungs. Mild basilar groundglass opacities medially in the right lower lobe and also in the lingula. Right upper lung dominant mass is increased in size now measuring 5.1 x 4.7 cm Increase in size of several additional nodules including nodule anterior to this mass, as well as left lower lung nodule measuring up to 1.8 x 1.1 cm Contralateral nodule peripherally in the right upper lobe at series 601 image 24 is decreased thereis nodular appearance associated with the bronchovasculature in the right upper lung at image 65 which can represent additional nodule versus pulmonary arterial lesion/hematological spread of malignancy. No effusion or pneumothorax. Mediastinum and marcia: Progress conglomerate adenopathy including diffuse mediastinal lymph nodes, prevascular nodes, right paratracheal nodes, as well as a node with a fluid fluid level which is increased in size at series 602 image 43 which can relate to biopsy. Hilar adenopathy is also markedly increased. Heart: Heart is normal in size. Small pericardial effusion. Moderate coronary artery calcification. Aorta: No aortic aneurysm. Pulmonary arteries: Enlarged right left pulmonary arteries, unchanged. This could relate to mass effect from adenopathy. Chest wall soft tissues: No acute abnormality or change. Diaphragm: Intact. Upper abdomen: Diffuse hepatic steatosis. Vascular atherosclerosis. Bones: No acute abnormality. Healed deformity of several right-sided rib fractures. Mild sclerosis seen in a few right ribs without expansile appearance are indeterminate, example posterior fourth ribs and fifth ribs bilaterally. Given symmetric appearance overall this is most likely chronic. IMPRESSION: Trace secretions in trachea with dependent airspace opacities in the upper lungs, minimally at the right lung base and also in the lingula. These findings can be seen with aspiration and active infection, pneumonia. Endobronchial spread of malignancy or postobstructive infection would have overlapping imaging appearance and observation on short interval follow up post treatment can be considered as there is otherwise progression overall since August 2022 (please see below). Progression of disease overall when compared to 08/26/2022 CT chest with increase in size of left lung dominant mass and marked increased in several left lung nodules, as well as significant mediastinal and hilar adenopathy. Right upper lung peripheral nodule is singularly slightly decreased in size. WSN: [id number] Ordering Physician: Jam Casas Dictated By: Lara Kim MD Dictated Date/Time: 11/28/22 10:20 a Reviewed By: Lara Kim MD Signed By: Lara Kim MD Signed Date/Time: 11/28/22 10:20 am Transcribed By: PATRICIA Transcribed Date/Time: 11/28/22 9:59 am * Exam Date Time Procedure Performing Provider Status 11/28/22 12:35 AM MRI Brain W+W/O Contrast Krista Springer; Auth (Verified) Notes: (MRI Brain W+W/O Contrast) Reason For Exam: Hemiparesis RESULT: MRI Brain W+W/O Contrast MRI Brain W+W/O Contrast INDICATION / CLINICAL QUESTION: Right-sided weakness and slurred speech. Recent diagnosis of lung adenocarcinoma. TECHNIQUE: MRI of the brain was performed with and without contrast utilizing sagittal and axial T1, axial T2, axial FLAIR, axial SWAN, and axial DWI sequences, and post-contrast 3D T1 MCDANIEL with multiplanar reformats. 15 mL of Clariscan was administered intravenously. Additional axial T2 CUBE stealth sequence was also obtained. COMPARISON: CT head, 11/07/2022 and 09/22/2019. FINDINGS: This exam is mildly degraded by motion. BRAIN and EXTRA-AXIAL SPACES: * There is a rim-enhancing 2.6 x 2.4 x 2.6 cm mass in the superior left parietal lobe. The mass demonstrates central T2 hyperintensity without enhancement consistent with necrosis, while the rind of the lesion demonstrates irregular nodularity in restricted diffusion consistent with hypercellularity. A punctate focus of susceptibility is also seen along the anterior margin suggesting minimal blood products. * There is severe surrounding vasogenic edema with overlying sulcal effacement, compression of the left lateral ventricle, and 9 mm rightward shift of the septum pellucidum. Vasogenic edema extends into the left frontal lobe as well as into the posterior limb of the left internal capsule. * The mass has increased in size compared to CT from 11/07/2022 when it measured up to 1.8 cm. Associated mass effect and midline shift is also increased. * No other areas of abnormal enhancement are seen in the brain or meninges. The ventricles and sulci are otherwise normal in size. Small focus of high FLAIR signal is seen in the lateral right frontal lobe (series 7, image 14), not convincingly seen on any of the other sequences, possibly artifactual. Patchy high T2 signal is seen in the central micah, though there is no evidence of restricted diffusion to suggest acute infarction. There is no extra-axial collection. Flow voids are preserved in thedominant intracranial vessels. EXTRACRANIAL SOFT TISSUES: Sinuses and mastoids are clear. Orbits are unremarkable. Seen only on the sagittal T1 sequence is a 1.9 cm T1 hypointense nodule within the subcutaneous fat over the right lateral face (series 2, image 6). BONES: Marrow signal is preserved. IMPRESSION: 1. Solitary 2.6 cm ring-enhancing necrotic mass in the superior left parietal lobe has increased insize compared to CT, 11/07/2022, as has associated surrounding edema and mass effect. There is now a 9 mm rightward shift of the septum pellucidum. This most likely represents a metastatic lesion. 2. 1.9 cm subcutaneous nodule in the right lateral face, incompletely imaged. Clinical correlation will dictate the need for further imaging. 3. Patchy high T2 signal in the central micah, nonspecific though most likely related to chronic microvascular ischemic change. WSN: [id number] Ordering Physician: Christian Childs Dictated By: Vira Victor MD Dictated Date/Time: 11/28/22 9:21 am Reviewed By: Vira Victor MD Signed By: Vira Victor MD Signed Date/Time: 11/28/22 9:21 am Transcribed By: PATRICIA Transcribed Date/Time: 11/28/22 9:08 am Vital Signs Most recent to oldest [Reference Range]: 1 2 3 Height 180 cm (12/02/22 11:34 AM) 180 cm (12/02/22 7:51 AM) 180 cm (12/01/22 4:44 AM) Weight 85.2 kg (12/01/22 6:41 AM) 87.1 kg (11/28/22 6:00 AM) 85 kg (11/27/22 5:33 PM) Oxygen Saturation [94-100 %] 99 % (12/02/22 11:34 AM) 97 % (12/02/22 7:51 AM) 99 % (12/02/22 4:00 AM) Pulse Rate [55-90 bpm] 79 bpm (12/02/22 11:34 AM) 79 bpm (12/02/22 7:51 AM) 69 bpm (12/02/22 4:00 AM) Body Mass Index [18.5-24.99 kg/m2] 26.23 kg/m2 *H* (11/27/22 5:33 PM) Blood Pressure [90-138/55-84 mm Hg] 142/97mm Hg *H* (12/02/22 11:34 AM) 150/104mm Hg *H* (12/02/22 7:51 AM) 142/94mm Hg *H* (12/02/22 4:00 AM) Respiratory Rate [16-30 br/min] 18 br/min (12/02/22 11:34 AM) 18 br/min (12/02/22 7:51 AM) 16 br/min (12/02/22 4:00 AM) Temperature [96.8-100.4 DegF] 97.2 DegF (12/02/22 11:34 AM) 97.0 DegF (12/02/22 7:51 AM) 96.8 DegF (12/02/22 4:00 AM) Liters per Minute 2 L/min (12/01/22 4:44 AM) 2 L/min (11/30/22 8:20 PM) 4 L/min (11/30/22 7:00 AM) Mode of Delivery (Oxygen) Room air (12/02/22 11:34 AM) Room air (12/02/22 7:51 AM) Room air (12/02/22 4:00 AM) Blood pressure sites Arm, left (12/02/22 11:34 AM) Arm, left (12/02/22 7:51 AM) Arm, left (12/02/22 4:00 AM) Temperature Route Temporal (12/02/22 11:34 AM) Temporal (12/02/22 7:51 AM) Temporal (12/02/22 4:00 AM) Dry Weight 85 kg (11/27/22 5:33 PM) Weight Obtained Via Bed scale (12/01/22 6:41 AM) Bed scale (11/28/22 6:00 AM) Bed scale (11/27/22 5:33 PM) Dry Weight Obtained Via Bed scale (11/27/22 5:33 PM) Social History Social History Type Response Smoking Status 10 or more cigarette s (1/2 pack or more)/day in last 30 days; Interested in cessation: No; Patient wants NRT during admission No entered on: 10/03/22 Sex History and physical note * Jam Casas DO S: MODIFY, MODIFY, MODIFY, MODIFY, PERFORM Event Display: History and Physical Hospital Authored Date: Patient: ??LAVERN BAHENA ? Age:??52 Years?Sex:??Male?:??1970?? Chief Complaint/Reason for Consultation Transfer from [facility] where patient was found to have new brain lesions History of Present Illness This is a 52-year-old??with past medical??history including??recently diagnosed lung??adenocarcinoma,??tobacco abuse,??alcohol abuse,??superficial thrombophlebitis??is??lower extremity,??and COPD,??who currently presents to the hospital as a transfer from [facility]??where he presented earlier today??with complaint of right-sided weakness, slurred speech,??and chest pain.?? Patient reports that he is??ongoing chest pain for at least the past 1 month, which she attributes to his??diagnosis of lung cancer.?? He also reports progressive weakness and right-sided weakness specifically in the last 3 to 4 weeks.?? He was noted to have right facial droop and right??sided??weakness.?? A CT scan of the head was obtained??that showed??heterogeneous??dense lesion in the left parietal lobe??measuring up to 2.5 cm surrounded by severe vasogenic edema??with 1 cm rightward midline shift??and medialization of the left hippocampus/uncus.?? His chest x-ray at??[facility] showed??mediastinal??widening and left- sided infiltrate,??possibly from malignancy with a pneumonia not excluded.?? The patient was treated with a dose of cefepime to cover for??pneumonia. ??He was also??given 10 mg of dexamethasone??and 500 mg of??IV Keppra.?? He was subsequently transferred here??for neurosurgical evaluation, as well as oncology evaluation.?? He has been seen by??Dr. Smith??from an oncology standpoint??for his??lung adenocarcinoma with??mets to the lymph nodes??in October 2022,??and plan was to??proceed with immunotherapy??versus chemo/radiation.?? Of note,??at [facility], the patient was noted tohave an elevated alcohol??level of??277 and an elevated lactate of 3.1. Review of Systems A complete review of systems was obtained and noted to be negative except as stated above in the HPI. Objective Measurements?? Height: 180 cm (11/27/22) Weight: 85 kg (11/27/22) Dry Weight: 85 kg (11/27/22) Body Mass Index:??26.23 kg/m2??High (11/27/22) ? Vital Signs?? Temperature: 97.8 DegF (11/28/22 03:00:00) Temperature Route: Temporal (11/28/22 03:00:00) Pulse Rate: 87 bpm (11/28/22 03:00:00) Respiratory Rate: 19 br/min (11/28/22 03:00:00) Systolic Blood Pressure:??147 mm Hg??High (11/28/22 03:00:00) Diastolic Blood Pressure:??93 mm Hg??High (11/28/22 03:00:00) Blood pressure sites: Arm, left (11/28/22 03:00:00) Mean Arterial Pressure: 118 mm Hg (11/27/22 17:33:00) Pulse Pressure: 54 mm Hg (11/28/22 03:00:00) Oxygen Saturation: 95 % (11/28/22 03:00:00) Liters per Minute: 3 L/min (11/28/22 03:00:00) Mode of Delivery (Oxygen): Nasal cannula (11/28/22 03:00:00) Early Warning Score:??10??Critical (11/28/22 03:30:45) ? Physical Exam General: Somnolent??but arouses easily to voice, in no acute cardiopulmonary distress. Mental Status: Oriented to person, place and time. Normal affect. Head: Normocephalic. Eyes: Pupils are equal, round and reactive to light. Extraocular muscles intact. Ear, Nose and Throat: Oropharynx clear, mucous membranes moist. Ears and nose without masses, lesions or deformities. Trachea midline. Neck: Supple, Full range of motion. Respiratory: Clear to auscultation and percussion. No wheezing, rales or rhonchi. Cardiovascular: Heart sounds normal. Regular rate and rhythm, no murmurs, rubs or gallops. Gastrointestinal: Abdomen soft, non-tender, non-distended. Normal bowel sounds. No pulsatile mass. No hepatosplenomegaly. Neurologic: Cranial nerves II-XII grossly intact??except for slurred speech and right facial droop.?Patient with right upper and lower extremity weakness, but greater than lower.??Sensation intactbilaterally. Skin: No rashes or lesions. No petechiae or purpura. No edema. Musculoskeletal: No cyanosis or clubbing. No gross deformities. Normal range of motion. Assessment/Plan This is a 52-year-old male with past medical history including??metastatic lung adenocarcinoma??to the lymph nodes,??COPD,??anxiety and depression,??history of alcohol abuse with liver cirrhosis,??and tobacco abuse, who currently presents to the hospital??as a transfer from [facility] where he presented??due to??chest pain and??right-sided weakness.?? He was noted there to have evidence??of a left ??parietal brain mass??with surrounding edema and??midline shift.?? He was transferred here for further management ?? Brain mass ??(G93.89) Right-sided weakness This patient will be admitted to an inpatient??neurology bed. ??He presents??3 to 4 weeks of right-sided weakness??and was found on imaging at [facility] to have a left parietal brain mass.?? He has been initiated on??steroids and Keppra,??and we will maintain him on??Decadron 4 mg IV every 6 hours, and Keppra??500 mg twice daily.?? We will ask neurosurgery to see this patient, and a brainMRI with and without contrast has been ordered.?? We will follow neurochecks every 4 hours for now.?? We will also ask oncology to see this patient. ?? Possible pneumonia ??(J18.9) Patient describes??increased shortness of breath.?? He??continues to smoke and has not been??using??his Symbicort inhaler.?? We will maintain him on albuterol??updraft treatments scheduled and??every4 hours as needed.?? For now we will place him on vancomycin and Zosyn, and obtain??a MRSA nasal??swab. ??In addition, we will obtain a CT scan of the chest??without contrast for??further evaluation??for underlying infection. ?? Recent superficial thrombophlebitis. Patient is maintained on??Eliquis which we will??continue at present. ?? Alcohol dependence. Liver cirrhosis Patient with history of alcohol use and liver cirrhosis.?? According to his daughter he has not been drinking??recently, but his blood alcohol level was noted to be elevated at the outside hospital.?? We will monitor him closely??for signs or symptoms of alcohol withdrawal on a CIWA protocol??and treat accordingly. ?? CODE STATUS. ??This was discussed with the patient??and his daughter, and confirmed with his??mother who is his primary healthcare proxy.?? He is a DNR. ?? DVT prophylaxis. Patient??will??be on Eliquis as noted above. ?? Patient seen on??November 27, 2022. Total time spent with patient and in coordination of care: including reviewing the chart/medical records, speaking with the patient, formulating and discussing the treatment plan, and documenting thefindings and encounter: ??70 + min ? Histories Allergies Allergies ?(Active and Proposed Allergies Only) No Known Medication Allergies? (Severity: Unknown severity, Onset: Unknown) Other Environmental Allergy? (Severity: Unknown severity, Onset: Unknown) ?Reactions: POLLEN ? Past Medical History/Problem List Active Problems??(13) Alcoholism Concussion COPD (chronic obstructive pulmonary disease) Elevated liver enzymes Fatty liver Hyperlipidemia Lateral epicondylitis of right elbow Low back pain Major depression Major depression Marijuana use Recovering alcoholic Tobacco abuse ? Past Surgical History Cardiovascular stress test using maximal or submaximal treadmill or bicycle exercise, continuous electrocardiographic monitoring, and/or pharmacological stress; interpretation and report only: 08/07/09 Left Achilles tendon repair Arthroscopy of knee??bilaterally Mediastinoscopy ?? Social History Patient lives with his mother. Alcohol Details:??Use: Current. ??Frequency: Daily. ??Type: Beer, Liquor. ??Other: 2 Beers and 6 Whiskey Shots per day??in the past.?? According to daughter, not drinking??currently. Substance Abuse Details:??Use: Current. ??Type: Marijuana. Tobacco Details:??Use:??1 cigarette a day currently, but is smoked as much is 2 packs a day??and began smoking as a teenager. ?? Family Medical History 1 brother?? with lung cancer. Medications Home Medications??(Confirmed with the patient) Albuterol (Albuterol (Eqv-ProAir HFA) 90 mcg/inh inhalation aerosol)?2?puff(s)?Inhalation?Every 6 hours apixaban (apixaban 5 mg oral tablet)?1?tab(s)?5?Milligram?By Mouth?2 times a day Oxycodone (oxyCODONE 5 mg oral tablet)?5?Milligram?By Mouth?Every 6 hours?as needed?Pain , Moderate ?? These medications are prescribed, but patient not taking: Betamethasone-Clotrimazole Topical (betamethasone-clotrimazole 0.05%-1% topical cream)?See Instructions?Apply gentle coat apply twice daily and then wash hands Budesonide-Formoterol (Symbicort 160mcg/4.5mcg Inhaler)?2?puff(s)?Inhalation?2 times a day Escitalopram (escitalopram 20 mg oral tablet)?1?tab(s)?By Mouth?Daily Fluticasone Nasal (Flonase 50 mcg/inh nasal spray)?2?spray(s)?Nares, Both?Daily in AM Folic Acid (folic acid 1 mg oral tablet)?1?tablet?By Mouth?Daily Mirtazapine (mirtazapine 30 mg oral tablet)?1?tab(s)?30?Milligram?By Mouth?Daily at bedtime Miscellaneous Rx ([facility] B-1 100 MG TABLET)?1?tab(s)?By Mouth?Daily Multivitamin (Daily Meg oral tablet)?1?tab(s)?By Mouth?Daily Naltrexone (naltrexone 50 mg oral tablet)?1?tab(s)?50?Milligram?By Mouth?Daily Results Recent Labs BLOOD COUNT & DIFF WBC 3.9 k/mm3 (Low)?? 11/28/2022 01:48 RBC 4.60 m/mm3 (Low)?? 11/28/2022 01:48 Hgb 14.6 Gm/dL ()?? 11/28/2022 01:48 Hct 44.7 % ()?? 11/28/2022 01:48 MCV 97.2 femtoliters (High)?? 11/28/2022 01:48 MCH 31.7 pg ()?? 11/28/2022 01:48 MCHC 32.7 g/dL (Low)?? 11/28/2022 01:48 Platelet Count 49 k/mm3 (Low)?? 11/28/2022 01:48 RDW-SD 51.2 femtoliters (High)?? 11/28/2022 01:48 MPV 12.7 femtoliters (High)?? 11/28/2022 01:48 Nucleated RBC (Automated) 0.0 #/100 WBC'S ()?? 11/28/2022 01:48 Abs. NRBC 0.0 k/mm3 ()?? 11/28/2022 01:48 Abs. Neut 3.1 k/mm3 ()?? 11/28/2022 01:48 Abs. Lymph 0.5 k/mm3 (Low)?? 11/28/2022 01:48 Abs. [place] 0.2 k/mm3 (Low)?? 11/28/2022 01:48 Abs. Eo 0.0 k/mm3 ()?? 11/28/2022 01:48 Abs. Baso 0.0 k/mm3 ()?? 11/28/2022 01:48 Neut % 80.9 % (High)?? 11/28/2022 01:48 Lymph % 13.8 % (Low)?? 11/28/2022 01:48 [place] % 3.9 % (Low)?? 11/28/2022 01:48 Eos % 0.3 % ()?? 11/28/2022 01:48 Baso % 0.3 % ()?? 11/28/2022 01:48 Imm Gran 0.8 % ()?? 11/28/2022 01:48 Abs. Imm Gran 0.0 k/mm3 ()?? 11/28/2022 01:48 ?? CHEM GENERAL Sodium 144 mmol/L ()?? 11/28/2022 01:48 Potassium 4.1 mmol/L ()?? 11/28/2022 01:48 Chloride 102 mmol/L ()?? 11/28/2022 01:48 Bicarbonate Level 24 mmol/L ()?? 11/28/2022 01:48 Anion Gap 18 (High)?? 11/28/2022 01:48 Glucose Level 140 mg/dL (High)?? 11/28/2022 01:48 BUN 11 mg/dL ()?? 11/28/2022 01:48 Creatinine-Blood 0.8 mg/dL ()?? 11/28/2022 01:48 Estimated GFR Creatinine 106 ML/MIN/1.73 M2 ()?? 11/28/2022 01:48 Calcium 8.8 mg/dL ()?? 11/28/2022 01:48 Protein, Total 6.6 Gm/dL ()?? 11/28/2022 01:48 Albumin 4.0 Gm/dL ()?? 11/28/2022 01:48 AG Ratio 1.5 ()?? 11/28/2022 01:48 Alkaline Phosphatase 99 units/L ()?? 11/28/2022 01:48 AST (SGOT) 43 units/L (High)?? 11/28/2022 01:48 ALT (SGPT) 30 units/L ()?? 11/28/2022 01:48 Bilirubin, Total 0.5 mg/dL ()?? 11/28/2022 01:48 ?? URINE OTHER Est Creatinine Clearance 115.87 mL/min ()?? 11/28/2022 02:43 ? Imaging(s) ?Other Image ?Labs from [facility]??include white blood cell count 5.6, hemoglobin 15.3, hematocrit 47.1,??platelet count 44,??sodium 143,??potassium??3.1, chloride 104, bicarb 23, BUN??6, creatinine 0.76,??glucose 99, lactate 3.1,??normal LFTs except for slightly elevated AST of 44,??and alcohol level of 277.??CT scan of the head??showing??left parietal lobe??lesion measuring up to 2.5 cm with severe vasogenic edema??and 1??cm rightward midline shift. Chest x-ray showing??mediastinal findings??that could be infectious versus inflammatory, or could represent malignancy. ? Hospital Progress note * Felicia Hicks: VERIFY, PERFORM, SIGN Event Display: Progress Note Hospital Authored Date: [id number] Patient: LAVERN BAHENA Age: 52 years Sex: Male : 1970 Associated Diagnoses: None Author: Felicia Hicks Findings Problem Related to Alteration in Neurological : Alteration in Neurological Function/new 12/02/2022 13:00 EDT Alteration in Neuro status Related to Other: Brain mass with associated R hemiplegia. Goals & Outcomes, Neurological Lab studies/diagnostic tests within pt specific limits, Pt is safe with transfers & activities, Pt will be hemodynamically stable, Pt will be Neurologically stable, Pt will maintain intact skin integrity, Pt will remain free from injury, Pt will resume/maintain adequate cardiac output, Pt will state importance of adhering to medication regime, Pt/caregiver will receive psychosocial support as needed, Pt/caregiver will state understanding of disease process, Pt/caregiver will state understanding of plan/goals of care, Pt/caregiver will state understandingof the D/C plan Interventions, Neurological Assess/monitor for abnormal posturing, Assess/monitor for gaze pattern/extraocular movements, Assess/monitor for increased Intracranial Pressure, Assess/monitor neurologicstatus, Assess/monitor VS per unit standards & prn, Identify psychosocial issues related to diag nosis/illness, If no bowel movement in 3 days activate bowel regime, Keep patient's head & bodyin good alignment, Maintain normothermia, report temp >101.5 F, Maintain strict intake & output, Monitor Fluid & Electrolytes, Serum Osmolarity, Monitor for headaches, nausea, vomiting, Monitor speech fluency, aphasia, word finding difficulty, Physical assessment per unit standards, Provi de emotional support to Pt/caregiver Goals/Interventions, Neurological Yes Neurological, Problem Start 11/27/2022 18:29 Reviewed plan with, Neurological Patient Patient Progression, Neurological Pt progressing according to plan . Nursing Data Cardiac Data. : Cardiac Data. 12/02/2022 8:00 EDT Cardiovascular Symptoms None Radial Pulse, Left Normal Radial Pulse, Right Normal Dorsalis Pedis Pulse, Left Normal Dorsalis Pedis Pulse, Right Normal services executive No Cardiovascular WNL except . Neurological Data. : Neurological Data. 12/02/2022 8:00 EDT Neurological Symptoms Weakness or loss of muscle strength, Other: brain lesion Orientated to person, place, time Person, Place, Time, Event Facial Symmetry Intact Characteristics of Speech Clear and normal Pupil description, left Round Pupil description, right Round Pupil reaction, left Brisk Pupil reaction, right Brisk Pupil Size, Left 3 mm Pupil Size, Right 3 mm Strength LUE 5-Active movement against gravity & full resistance Strength RUE 3-Active movement against gravity Strength LLE 5-Active movement against gravity & full resistance Strength RLE 4-Active movement against gravity & some resistance Tone LUE Normal Tone RUE Normal Tone LLE Normal Tone RLE Normal Sensation LUE Intact Sensation RUE Intact Sensation LLE Intact Sensation RLE Intact Movement LUE Spontaneous, To command Movement RUE Spontaneous, To command Movement LLE Spontaneous, To command Movement RLE Spontaneous, To command Response Eye Opening Spontaneously Motor Response-Adult Obeys commands Verbal Response-Adult Oriented and converses Alejandra Coma Score 15 Neuro WNL except Eyes and Movements Conjugate gaze: Move in same direction at same speed Swallow - Neuro Normal . Evaluation Pt A&O x 4. Able to follow commands. Denies any dizziness, blurred vision, or numbness and tingling. Complains of 5/10 back pain relieved with lidocaine patch, continuing to monitor. PERRL 3 mm BL. Moves L extremities with 5/5 strength, moves RUE with 3/5 strength, moves RLE with 4/5 strength, equal hand grasps BL. no facial droop or tongue deviation, clear speech. Pedal and radial pulses 2+ BL. BL Lungs dim, on room air. Denies chest pain and shortness of breath. No issues with elimination, continent and ambultes steadily with walker to bathroom. Positive bowel sounds in all 4 quadrants.Abdomen soft and nontender. LBM 7/31. Skin warm and dry. IV in L forearm bloody but flushing well. Bed locked and in lowest position. Call forrest within reach. Safety and seizure precautions maintained, no seizure activity noted this shift. See cis for complete biophysical.. Discharge Information Rehabilitation Discharge : Rehab Discharge Index 11/30/2022 13:15 EDT Walker: distance >50 11/30/2022 8:57 EDT Comments on treatment indicated adls funclt mob safety pt edu UE function Full chart review completed Yes 11/29/2022 8:34 EDT Comments on treatment indicated See pt for ther ex, ther act, and gait with LRD Walker: distance >50 Distance pt will ambulate 300 ft with LRD Full chart review completed Yes Other findings See comments Plan of care PT Gait training, Transfer training, Therapeutic exercise, Functional Activities, Balance training 11/28/2022 13:01 EDT Comments on treatment indicated rec D3/thin diet; ST to f/u to monitor tolerance Full chart review completed Yes Hospital course Hospital course * Kevin Rangel: VERIFY, PERFORM, MODIFY, SIGN Event Display: Progress Note Hospital Authored Date: Patient: LAVERN BAHENA Age: 52 years Sex: Male : 1970 Associated Diagnoses: None Author: Kevin Rangel Findings Problem Related to Alteration in Neurological : Alteration in Neurological Function/new 12/01/2022 22:00 EDT Alteration in Neuro status Related to Other: Brain mass with associated R hemiplegia. Goals & Outcomes, Neurological Lab studies/diagnostic tests within pt specific limits, Pt is safe with transfers & activities, Pt will be hemodynamically stable, Pt will be Neurologically stable, Pt will maintain intact skin integrity, Pt will remain free from injury, Pt will resume/maintain adequate cardiac output, Pt will state importance of adhering to medication regime, Pt/caregiver will receive psychosocial support as needed, Pt/caregiver will state understanding of disease process, Pt/caregiver will state understanding of plan/goals of care, Pt/caregiver will state understandingof the D/C plan Interventions, Neurological Assess/monitor neurologic status, Assess/monitor VS per unit standards & prn, Call/Report variances in assessments to provider, If no bowel movement in 3 days activatebowel regime, Monitor Fluid & Electrolytes, Serum Osmolarity, Monitor for headaches, nausea, vomiting, Monitor speech fluency, aphasia, word finding difficulty, Physical assessment per unit standards, Provide emotional support to Pt/caregiver Goals/Interventions, Neurological Yes Neurological, Problem Start 11/27/2022 18:29 Reviewed plan with, Neurological Patient Patient Progression, Neurological Pt progressing according to plan . Nursing Data Neurological Data. : Neurological Data. 12/01/2022 21:13 EDT Tongue Disposition Midline Neurological Symptoms Weakness or loss of muscle strength Level of Consciousness Full Consciousness Orientated to person, place, time Person, Place, Time, Event Hallucinations None Facial Symmetry Intact Characteristics of Speech Clear and normal Swallowing Difficulty None Pupil description, left Regular Pupil description, right Regular Strength LUE 5-Active movement against gravity & full resistance Strength RUE 3-Active movement against gravity Strength LLE 5-Active movement against gravity & full resistance Strength RLE 4-Active movement against gravity & some resistance Tone LUE Normal Tone RUE Normal Tone LLE Normal Tone RLE Normal Sensation LUE Intact Sensation RUE Intact Sensation LLE Intact Sensation RLE Intact Movement LUE Spontaneous, To command Movement RUE Spontaneous, To command Movement LLE Spontaneous, To command Movement RLE Spontaneous, To command Gait Unsteady Tremors None Response Eye Opening Spontaneously Motor Response-Adult Obeys commands Verbal Response-Adult Oriented and converses Alejandar Coma Score 15 Neuro WNL except Corneal/Blink Reflex Intact right, Intact left Eyes and Movements Conjugate gaze: Move in same direction at same speed Headache None Memory Intact Swallow - Neuro Normal . Evaluation Patient A&O x4, speech clear, follows commands. Denies headache, dizziness, nausea, numbness/tingling. RUE weakness noted 3/5 strength, sensation intact. Patient ambulating well with walker. NSR on tele, no chest pain or respiratory distress. Skin intact. Patient denies pain at this time. Will continue to monitor and document any changes in assessment. See [facility] for further details.. Discharge Information Rehabilitation Discharge : Rehab Discharge Index 11/30/2022 13:15 EDT Walker: distance >50 11/30/2022 8:57 EDT Comments on treatment indicated adls funclt mob safety pt edu UE function Full chart review completed Yes 11/29/2022 8:34 EDT Comments on treatment indicated See pt for ther ex, ther act, and gait with LRD Walker: distance >50 Distance pt will ambulate 300 ft with LRD Full chart review completed Yes Other findings See comments Plan of care PT Gait training, Transfer training, Therapeutic exercise, Functional Activities, Balance training 11/28/2022 13:01 EDT Comments on treatment indicated rec D3/thin diet; ST to f/u to monitor tolerance Full chart review completed Yes Hospital course Hospital course * Bee Broderick RN: VERIFY, PERFORM, SIGN Event Display: Progress Note Hospital Authored Date: [id number] Patient: LAVERN BAHENA Age: 52 years Sex: Male : 1970 Associated Diagnoses: None Author: Bee Broderick RN Findings Problem Related to Alteration in Neurological : Alteration in Neurological Function/new 12/01/2022 18:36 EDT Alteration in Neuro status Related to Other: Brain mass with associated R hemiplegia. Goals & Outcomes, Neurological Lab studies/diagnostic tests within pt specific limits, Pt is safe with transfers & activities, Pt will be hemodynamically stable, Pt will be Neurologically stable, Pt will maintain intact skin integrity, Pt will remain free from injury, Pt will resume/maintain adequate cardiac output, Pt will state importance of adhering to medication regime, Pt/caregiver will receive psychosocial support as needed, Pt/caregiver will state understanding of disease process, Pt/caregiver will state understanding of plan/goals of care, Pt/caregiver will state understandingof the D/C plan Interventions, Neurological Assess/monitor for abnormal posturing, Assess/monitor for gaze pattern/extraocular movements, Assess/monitor for increased Intracranial Pressure, Assess/monitor neurologicstatus, Assess/monitor VS per unit standards & prn, Call/Report variances in assessments to provider, Collaborate w/ provider to implement appropriate guidelines, Collaborate with Nutrition, Collaborate with provider re: medication regime, Document & Monitor O2 Sats; Administer O2 as ordered, Emergency airway equipment at bedside, Identify psychosocial issues related to diagnosis/illness,If no bowel movement in 3 days activate bowel regime, [place] alternate means of communication, Ke ep patient's head & body in good alignment, Maintain HOB at least 30 deg, Maintain normothermia, report temp >101.5 F, Maintain patient safety if unsteady gait, Maintain strict intake & output, Monitor Fluid & Electrolytes, Serum Osmolarity, Monitor for headaches, nausea, vomiting, Monitor speech fluency, aphasia, word finding difficulty, Physical assessment per unit standards, Prov mouna emotional support to Pt/caregiver, Teach & encourage deep breath & cough exercises, Teach and encourage use of Incentive spirometer, Teach pt/caregiver discharge plan & follow up care, Teach pt/caregiver on plan of care, treatment, s/s & meds, Teach pt/caregiver on use of pain scale BH Goals/Interventions, Neurological Yes Neurological, Problem Start 11/27/2022 18:29 Reviewed plan with, Neurological Patient Patient Progression, Neurological Plan Initiation . Nursing Data Neurological Data. : Neurological Data. 12/01/2022 9:00 EDT Neurological Symptoms Impaired mental ability Level of Consciousness Confusion Orientated to person, place, time Person, Place, Time, Disoriented to person/place/time/event Facial Symmetry Drooping right side of face Characteristics of Speech Clear and normal Swallowing Difficulty None Pupil description, left Regular Pupil description, right Regular Strength LUE 5-Active movement against gravity & full resistance Strength RUE 0-No movement Strength LLE 5-Active movement against gravity & full resistance Strength RLE 3-Active movement against gravity Tone LUE Normal Tone RUE Normal Tone LLE Normal Tone RLE Normal Sensation LUE Intact Sensation RUE Intact Sensation LLE Intact Sensation RLE Intact Movement LUE Spontaneous, To command Movement RUE Absent Movement LLE Spontaneous, To command Movement RLE Spontaneous, To command Gait Unsteady Tremors None Response Eye Opening Spontaneously Motor Response-Adult Obeys commands Verbal Response-Adult Disoriented and converses [place] Coma Score 14 Neuro WNL except Eyes and Movements Conjugate gaze: Move in same direction at same speed Headache None Memory Short term loss Swallow - Neuro Normal . Evaluation A&O x3, speech clear, follows commands, PERRL, confused. Denies headache, dizziness, n/t, n/v, changes in vision from baseline. Lungs CTA, denies SOB, some rales in lower lobes. +PP, no edema, denies CP, NSR/ST. +BS x4, LBM 11/30/2022. Voids without pain or difficulty, BR. Skin CDI. Bed locked in lowest position, bed alarm on, antislip socks applied, all questions and concerns addressed, call forrest within reach, safety maintained. . Discharge Information Rehabilitation Discharge : Rehab Discharge Index 11/30/2022 13:15 EDT Walker: distance >50 11/30/2022 8:57 EDT Comments on treatment indicated adls funclt mob safety pt edu UE function Full chart review completed Yes 11/29/2022 8:34 EDT Comments on treatment indicated See pt for ther ex, ther act, and gait with LRD Walker: distance >50 Distance pt will ambulate 300 ft with LRD Full chart review completed Yes Other findings See comments Plan of care PT Gait training, Transfer training, Therapeutic exercise, Functional Activities, Balance training 11/28/2022 13:01 EDT Comments on treatment indicated rec D3/thin diet; ST to f/u to monitor tolerance Full chart review completed Yes Hospital course Hospital course Consult note * Santy BOWER, Jesús: MODIFY, PERFORM Event Display: Consultation Note Authored Date: [id number] Patient: ??LAVERN BAHENA ? Age:??52 Years?Sex:??Male?:??1970?? Reason for Consult/Visit Stage IV??lung adenocarcinoma, brain metastasis Requesting Physician STAN Zavala Primary Oncologist Kevin Smith MD Hematology/Oncology Shared Clinical Summary This is a 52-year-old male diagnosed with metastatic lung cancer. ?? PMH???COPD, superficial thrombophlebitis of the left lower extremity, active smoker, ?? 08/26/2022: Low-dose CT chest screening showed left lung mass 4.4 cm, bulky mediastinal lymphadenopathy ?? 09/05/2022: Lymph node biopsy with metastatic adenocarcinoma consistent with lung primary, PD-L1 morethan 90% TPS, ALK negative, EGFR negative no other clinically significant variants were detected ?? 11/27/2022: Presented to hospital with confusion MRI brain showed solitary 2.6 cm ring-enhancing necrotic mass in the superior left parietal lobe that has increased in size, with surrounding edema and mass effect.?? 9 mm rightward shift of the septum pellucidum.?? 1.9 cm subcutaneous noted in the right lateral face -Started steroids ?? 11/28/2022: Right upper lung dominant mass increase in size, 5.1X 4.7 cm ?? 11/29/2022: Evaluated by inpatient oncology team, given the symptomatic brain metastasis, patient debbie candidate for SBRT.?? Discussed with radiation oncology about SBRT, pt will need to be on steroids for around 1 week before starting SBRT given cerebral edema, which will be done outpatient.?? Plan is to start immunotherapy subsequently given the high PD-L1 status?In the absence of othertargetable mutations. ?? 12/01/2022: Patient deemed not to have capacity.?? Plan discussed with the family. ? Medications and allergies: Reviewed in [facility] ?? Family history: Brother from lung Ca ?? Social history: Active smoker, heavy alcohol use Allergies No Known Medication Allergies Other Environmental Allergy??(POLLEN) Physical Exam Vitals & Measurements T:??97.3?F?? TMIN:??97.3?F?? TMAX:??98.1?F?? HR:??86??(Peripheral)?? RR:??16?? BP:??163/106?? SpO2:??99%?? WT:??85.2??kg?? General: Patient in no apparent distress?? EENT: pale, anicteric Neck: Supple, no lymphadenopathy?? Chest: No scars Cardiac: S1, S2 heard; No mrg, Regular rate and rhythm. Respiratory: Normal RR, normal work of breathing, Normal vesicular breath sounds heard; No adventitious sounds?? GI: Soft, non tender, bowel sounds heard; no organomegaly Neuro: AOx 3; R/ UE weakness Extremities: No edema, ; warm and well perfused peripheries Skin: No rash, bleeding or ulcers.?? Lymph Nodes: No cervical, supraclavicular, axillary or inguinal lymphadenopathy?? Psych: Calm and cooperative?? Lab Results/Pathology CBC?? CMP?? Abs. NRBC: 0 k/mm3 (12/01/22 02:20:00) Anion Gap: 8 (12/01/22 02:20:00) Hct:??39.6 %??Low (12/01/22 02:20:00) Bicarbonate Level: 25 mmol/L (12/01/22 02:20:00) Nucleated RBC (Automated): 0 #/100 WBC'S (12/01/22 02:20:00) BUN: 12 mg/dL (12/01/22 02:20:00) RBC:??4.12 m/mm3??Low (12/01/22 02:20:00) Chloride: 103 mmol/L (12/01/22 02:20:00) RDW-SD:??49.2 femtoliters??High (12/01/22 02:20:00) Creatinine-Blood: 0.7 mg/dL (12/01/22 02:20:00) WBC: 9 k/mm3 (12/01/22 02:20:00) Estimated GFR Creatinine: 114 ML/MIN/1.73 M2 (12/01/22 02:20:00) ?? Potassium: 3.8 mmol/L (12/01/22 02:20:00) ?? Sodium: 136 mmol/L (12/01/22 02:20:00) Diagnostic Results Reviewed. Assessment/Plan This is a 52-year-old male with Stage IV Lung cancer presenting with symptomatic brain metastases. ?? #Stage 4 adenocarcinoma of the lung with brain metastasis #Cerebral edema and midline shift He was admitted with confusion,RUE weakness, ??MRI brain revealed solitary 2.6 cm ring-enhancing necrotic mass in the superior left parietal lobe that has increased in size with surrounding edema andmass effect.?? Has been Started on steroids. ? Plan: 1.?? Radiation oncology consulted, per recommendation he will undergo SBRT to the brain lesion upondischarge 2.?? Metastatic SBRT, the patient needs to receive steroids for at least 1 week, therefore will need to continue steroids. 3.?? Oncology team discussed the plan with the patient's daughter. CC Reports to: Rojelio Gallardo MD * Luis BOWER, Kevin Carr: PERFORM Event Display: Consultation Note Authored Date: [id number] This pt was seen and evaluated; care and management was discussed with the fellow; I agree with theassessment and plan.?? Because the patient himself lacks capacity,??I spoke with his daughter who is the first healthcare proxy.?? I explained that??SBRT cannot be done as an inpatient??and??that it cannot be done until he has been on the steroids for a little while??so that the swelling??has a chance to??proceed.?? We discussed the pros and cons of doing the radiation.?? I recommended that we not??make any plans after that??until I have a chance to reevaluate the patient in the office.?? Sincethe patient will not be going home upon discharge??suitable skilled facility will need to be found??that will allow him to come to the cancer center.?? When we saw the patient today??I told him that the radiation will be done after discharge??and that we would then make other plans??when we see howhe responds.?? It was clear from the questions he was asking me that he was not??taking in??a lot of this information??in a way that made sense to him. * Wayne ASTORGA, Janee Martin: MODIFY, PERFORM, MODIFY Event Display: Consultation Note Authored Date: [id number] Patient: ??LAVERN BAHENA ? Age:??52 Years?Sex:??Male?:??1970?? Chief Complaint Transfer from [facility] where patient was found to have new brain lesions History of Present Illness Referring Physician:?Dr. Montes ?? Chief Complaint / Reason for consult:?Medication management ?? Source of information:??Per patient,??[facility] records ?? Identifying information:?Lavern is a 52 y.o. who has a history of depression, anxiety,??and alcohol use disorder. He has co-morbid medical diagnoses of??metastatic lung adenocarcinoma??to the lymph nodes,??COPD,??liver cirrhosis,??and tobacco abuse. ?? History of Present Illness:?Patient is unknown to the [facility] psychiatry service from prior consultations or inpatient hospitalizations. He presented to [facility] on 11/27/22 as a transfer from [facility] where he presented??due to??chest pain and??right-sided weakness.?? He was noted there to haveevidence??of a left??parietal brain mass??with surrounding edema and??midline shift.?? He was??admitted for further management. ?? Per admission note: Patient reports that he is??ongoing chest pain for at least the past 1 month, which he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 3/5 throughout with diminished sensation in a nondermatomal fashion Right lower extremity strength and sensation are intact Impression and Plan 52-year-old male with known history of non-small cell lung adenocarcinoma presents with dysarthric speech as well as right upper and lower extremity neurologic deficits. Head CT demonstrates large left-sided brain mass. Recommendations Every 4 hours neurochecks MRI brain with without contrast with stealth protocol Agree with 10 mg of Decadron followed by 4 mg every 6 with GI prophylaxis More recommendations to follow imaging Discussed with Dr. Skinner Note * Meghan Quigley RN: PERFORM Event Display: Discharge/Transfer Note Hospital Authored Date: [id number] Nursing Discharge Note Entered On: 12/02/2022 18:23 EDT Performed On: 12/02/2022 18:22 EDT by Meghan Quigley RN Nursing Discharge Note 2 Discharge Time : 12/02/2022 18:15 EDT Discharge Level of Care at Discharge : Homehealth/VNA Discharge VNA/Hospice/Home Care(v001) : [facility] [phone] Patient Left Unit Via : Ambulatory Patient Accompanied Off Unit with : Responsible adult DC Instructions Provided & Signed by Pt : Unable Patient Understands D/C Instructions : Yes Verbalized Understanding of D/C Plan By : Patient, Other: daughter Patient Instructions Discharge Signed : Yes Discharge Comments : IV removed, cannula tip intact. Pt confused at times, pt daughter/HCP, Leatha, able to state when pt to take next doses of all meds and when to make and attend all follow up appointments Did Pt have Specialty Bed or Wound Vac : No Meghan Quigley RN - 12/02/2022 18:22 EDT * Kimberly Mcclelland: PERFORM Event Display: Discharge/Transfer Note Hospital Authored Date: [id number] Patient: ??LAVERN BAHENA ? Age:??52 Years?Sex:??Male?:??1970?? Patient Information Discharge Location: A Primary Care Physician: Rojelio Gallardo MD Admit Date/Time: 11/27/22 16:41 Discharge Date:??12/02/2022 17:27 Discharge Disposition Discharge Disposition: Home with Home Health Discharge Diagnosis Pneumonia (J18.9) Brain mass (G93.89) Metastatic lung cancer Alcohol abuse Tobacco use _ Discharge Medications Acetaminophen (acetaminophen 325 mg oral tablet)?975?Milligram?By Mouth?Once?as needed?Pain , Moderate Albuterol (Albuterol (Eqv-ProAir HFA) 90 mcg/inh inhalation aerosol)?2?puff(s)?Inhalation?Every 6 hours apixaban (apixaban 5 mg oral tablet)?1?tab(s)?5?Milligram?By Mouth?2 times a day Budesonide-Formoterol (Symbicort 160mcg/4.5mcg Inhaler)?2?puff(s)?Inhalation?2 times a day Dexamethasone (dexamethasone 4 mg oral tablet)?1?tab(s)?4?Milligram?By Mouth?3 times a day?for 14?Days?to be tapered by radiation oncology Famotidine (famotidine 20 mg oral tablet)?20?Milligram?1?tablet?By Mouth?2 times a day?for 14?Days Fluticasone Nasal (Flonase 50 mcg/inh nasal spray)?2?spray(s)?Nares, Both?Daily in AM Folic Acid (folic acid 1 mg oral tablet)?1?tablet?By Mouth?Daily levETIRAcetam (levETIRAcetam 500 mg oral tablet)?1?tab(s)?500?Milligram?By Mouth?2 times a day?for 30?Days Mirtazapine (mirtazapine 30 mg oral tablet)?1?tab(s)?30?Milligram?By Mouth?Daily at bedtime Multivitamin (Daily Meg oral tablet)?1?tab(s)?By Mouth?Daily Naltrexone (naltrexone 50 mg oral tablet)?1?tab(s)?50?Milligram?By Mouth?Daily Nicotine (nicotine 21 mg/24 hr transdermal film, extended release)?1?patch(es)?Topically?Daily?for 30?Days?apply to skin Medications Started Dexamethasone Keppra Famotidine Nicotine patch Naltrexone Medications Discontinued None Doses Changed None Allergies Allergies ?(Active and Proposed Allergies Only) No Known Medication Allergies? (Severity: Unknown severity, Onset: Unknown) Other Environmental Allergy? (Severity: Unknown severity, Onset: Unknown) ?Reactions: POLLEN ? PCP Follow-Up/Heads-Up 1. Patient needs close follow up with radiation and medical oncology. They should be calling to arrange 2. Patient given nicotine patch and naltrexone upon discharge. We have also arranged outpatient behavioral health follow up in the community Future Appointments Thursday 9:30 AM EDT ?? With: Paulina BOWER, Rojelio Glover Where: [place] [address]- Status: Pending Hospital Course Mr. Bahena is a 52-year-old male with past medical history including metastatic lung adenocarcinoma to the lymph nodes, COPD, anxiety and depression, history of alcohol abuse with liver cirrhosis, and tobacco abuse, who presented to the hospital as a transfer from [facility] where he presented dueto chest pain and right-sided weakness. He was noted there to have evidence of a left parietal brain mass with surrounding edema and midline shift. He was seen by neurosurgery and given location, debulking was not offered as it was likely to impact his motor cortext. He was also seen by oncology (medical and radiation) and outpatient follow up has been arranged. He was started on high dose steroids with significant improvement in his mood, weakness and overall appearance. On the day of discharge, the patient reports feeling very well and is very eager to be discharged home. He is now interested in resuming his naltrexone and nicotine patch, I have provided updates prescriptions for these. Physical therapy has cleared him for d/c home and VNA/PT and outpatient behavioral health follow up has been arranged by case management. At this time, he is safe and stable for discharge with close and appropriate follow up care. ?? See below for problem focused plan: Objective Metastatic lung adenocarcinoma to the brain Right-sided weakness, improving Presenting with 3 to 4 weeks of right-sided weakness,??known brain mass Head CT from 11/07 showing 1.8 cm mass with mass effect and significant edema, MRI this??admission showing progression to 2.6 cm with 9 mm rightward shift of the septum pellucidum Seen by neurosurgery, no surgical option d/t high morbidity based on tumor location Radiation oncology have arranged RT for 12/04 - Continue dexamethasone 4 mg??TID ? *Per Dr. Yeh, to be titrated per rad onc - Continue Keppra 500 mg BID - Rad onc appointment on 12/04 - Medical oncology follow up TBD ? Possible pneumonia ??(J18.9) Oropharyngeal dysphagia, resolved Likely in the setting of aspiration r/t brain mass Multiple opacities seen on chest CT, procal low at 0.7 though clinically appears to have pneumonia (SOB, O2 requirement, productive cough) Stopped antibiotics as procal negative x2 - Continue home inhalers - Supplemental O2 as needed ? Alcohol dependence Liver cirrhosis, thrombocytopenia Patient with history of alcohol use and liver cirrhosis, according to family he was attempting to drink himself to at home Ethanol level 233 on admission Patient now agreeable to MAT, had previously been on naltrexone - Discharged on Naltrexone 50 mg daily (LFTs normal on 11/28) ? Chronic, stable or resolved medical conditions: Recent DVT: On US from 08/05/22 - occlusive thrombus of the gastrocnemius veins, and both peroneal veins.??Per neurosurgery, okay to continue Eliquis BID Tobacco use: Encouraged cessation, nicotine patch prescribed upon d/c Depression/insomnia: Continue home mirtazapine . Physical Exam Constitutional: 52 year old male, well appearing, alert, in no??acute distress. Mental Status: Oriented to person, place and time. Respiratory: Diffuse but mild expiratory wheezing in the upper lobes,??breathing comfortably??on room air. Cardiovascular: RRR, S1 S2 regular. No murmurs, rubs or gallops. Gastrointestinal: Abdomen soft, non-tender, non-distended. Normal bowel sounds. Neurologic: RUE - medical payment poster 4/5, able to lift arm against gravity, strength 2/5 with resistance. LUE - 5/5 throughout. RLE - 5/5. LLE - 4+/5. PERRLA, EOMI. Speech fluent and appropriate to conversation [facility] Patient Education Titles Naltrexone Oral Tablet?? Levetiracetam Oral Tablet?? Dexamethasone Oral Tablet?? Follow-Up Appointments Added Follow Up ?Time Frame ?Comments Luis BOWER, Kevin Carr?1 month?Please call to arrange follow up if you do not hear from them Mishel Oropeza MD?12/04/2022 10:00 Rojelio Gallardo MD?Within two weeks Patient Instructions Diagnosis: -Lung cancer -Brain mass ?? Important results/instructions: -You will have close follow up with radiation oncology (on 12/05/22 at 10AM) and with medical oncology, Dr. Smith. Decisions for treatment can be made at those outpatient appointments. -It is important that you stop drinking alcohol or smoking tobacco if you wish to undergo treatmentfor these cancers. You were prescribed a nicotine patch (which you have been doing wonderfully withwhile in the hospital) as well as naltrexone which will help to cut cravings. We have arranged follow up to assist you with this and to offer outpatient support -You are being discharged today with [facility]. The agency will contact you to set up a time to visit. They can be reached at [phone].? Medication changes: -New: Dexamethasone 4 mg three times daily (this will be adjusted and tapered by radiation oncology), famotidine 20 mg twice daily (this protects your stomach while on steroids), keppra 500 mg twice daily (to prevent seizures), nicotine patch daily, naltrexone 50 mg daily?? -No other changes to your home medications ? It was a pleasure caring for you, I am glad you are feeling better! Please follow up with your PCP in the next 1-2 weeks for a post-hospitalization follow up Post Discharge Care Diet: Regular Diet Activity: Ambulate as tolerated Wound Care: None Code Status: ?? No Resuscitation Condition: Poor Discharge ?12/02/22 17:27:00 EDT Discharge Prescriptions ?ePrescribed, ??12/02/22 17:27:00 EDT Home Health Face to Face *Denotes mandatory pop ?? *I certify that this patient is under my care and that I or an allowed non- physician working with me had a face to face encounter with the patient on this date:??12/02/2022 17:32 ?? *The encounter with the patient was in whole, or in part, for the following medical condition, which is the primary diagnosis(es) for home health care:??Pneumonia (J18.9) Brain mass (G93.89) ? *Select the indications for the discipline/s that are being arranged for this patient. Nursing (select all that apply): [_] None [x] Medication management (reconciliation, teaching)?? [x] Chronic disease management?? [_] Wound care and treatment?? [x] Home safety evaluation [_] Administer SQ/IM/IV medications?? [_] Cath care?? [_] Drain care?? [_] Trach or GT care?? Other _ Occupation Therapy (select all that apply): [_] None [_] ADL Management [_] Fall prevention training [_] Energy conservation [_] Cognitive training Other _ Physical Therapy (select all that apply): [_] None [x] Functional mobility training [x] Home exercise program to strengthen [_] Increase ROM?? [_] Falls prevention training [x] Home maintenance program for chronic disease Other _ Speech Therapy (select all that apply): [_] None [_] Swallow evaluation and training [_] Speech and language training [_] Cognitive training to process, organize, and/or recall information Other _ ? *Homebound due to (select all that apply): [x] Inability to leave home without assistance/supervision [_] Inability to ambulate without assistance [_] Pain [x] Decreased strength and endurance [_] Unsteady gait [_] Severe SOB and fatigue [_] Impaired transfers [_] Inability to negotiate stairs [_] Limited weight bearing [x] Mental status change? *Physician Signature:??Kimberly PIERCE ?? *By signing this, I certify that I have personally evaluated the patient and agree with the findings and recommendations as documented above. Results Discharge Labs BACTERIOLOGY MRSA PCR Result Negative, MRSA target DNA not detected. ()?? 11/28/2022 14:38 S Aureus ??PCR Result Negative, SA target DNA not detected. ()?? 11/28/2022 14:38 ?? BLOOD COUNT & DIFF WBC 9.0 k/mm3 ()?? 12/01/2022 02:20 RBC 4.12 m/mm3 (Low)?? 12/01/2022 02:20 Hgb 13.1 Gm/dL (Low)?? 12/01/2022 02:20 Hct 39.6 % (Low)?? 12/01/2022 02:20 MCV 96.1 femtoliters (High)?? 12/01/2022 02:20 MCH 31.8 pg ()?? 12/01/2022 02:20 MCHC 33.1 g/dL ()?? 12/01/2022 02:20 Platelet Count 70 k/mm3 (Low)?? 12/01/2022 02:20 RDW-SD 49.2 femtoliters (High)?? 12/01/2022 02:20 MPV 11.5 femtoliters ()?? 12/01/2022 02:20 Nucleated RBC (Automated) 0.0 #/100 WBC'S ()?? 12/01/2022 02:20 Abs. NRBC 0.0 k/mm3 ()?? 12/01/2022 02:20 Abs. Neut 5.9 k/mm3 ()?? 11/28/2022 12:20 Abs. Lymph 0.5 k/mm3 (Low)?? 11/28/2022 12:20 Abs. [place] 0.4 k/mm3 ()?? 11/28/2022 12:20 Abs. Eo 0.0 k/mm3 ()?? 11/28/2022 12:20 Abs. Baso 0.0 k/mm3 ()?? 11/28/2022 12:20 Neut % 86.3 % (High)?? 11/28/2022 12:20 Lymph % 7.4 % (Low)?? 11/28/2022 12:20 [place] % 5.7 % ()?? 11/28/2022 12:20 Eos % 0.1 % ()?? 11/28/2022 12:20 Baso % 0.1 % ()?? 11/28/2022 12:20 Imm Gran 0.4 % ()?? 11/28/2022 12:20 Abs. Imm Gran 0.0 k/mm3 ()?? 11/28/2022 12:20 ?? CHEM GENERAL Sodium 136 mmol/L ()?? 12/01/2022 02:20 Potassium 3.8 mmol/L ()?? 12/01/2022 02:20 Chloride 103 mmol/L ()?? 12/01/2022 02:20 Bicarbonate Level 25 mmol/L ()?? 12/01/2022 02:20 Anion Gap 8 ()?? 12/01/2022 02:20 Glucose Level 143 mg/dL (High)?? 11/29/2022 01:59 BUN 12 mg/dL ()?? 12/01/2022 02:20 Creatinine-Blood 0.7 mg/dL ()?? 12/01/2022 02:20 Estimated GFR Creatinine 114 ML/MIN/1.73 M2 ()?? 12/01/2022 02:20 Calcium 9.2 mg/dL ()?? 11/28/2022 12:20 Phosphorus 2.6 mg/dL ()?? 11/29/2022 01:59 Magnesium 2.1 mg/dL ()?? 11/29/2022 01:59 Protein, Total 6.7 Gm/dL ()?? 11/28/2022 12:20 Albumin 4.0 Gm/dL ()?? 11/28/2022 12:20 AG Ratio 1.5 ()?? 11/28/2022 12:20 Alkaline Phosphatase 98 units/L ()?? 11/28/2022 12:20 AST (SGOT) 32 units/L ()?? 11/28/2022 12:20 ALT (SGPT) 26 units/L ()?? 11/28/2022 12:20 Bilirubin, Total 0.6 mg/dL ()?? 11/28/2022 12:20 C-Reactive Protein 1.0 mg/dL (High)?? 11/28/2022 01:48 ?? MISC. CHEMISTRY Procalcitonin 0.05 ng/mL ()?? 12/01/2022 02:20 ? URINE OTHER Est Creatinine Clearance 132.43 mL/min ()?? 11/28/2022 13:36 ? VIROLOGY COVID-19 PCR Specimen Source NASAL ()?? 11/28/2022 14:38 COVID-19 PCR Result NEGATIVE ()?? 11/28/2022 14:38 ? Microbiology ?? COVID-19 (2019 Novel Coronavirus) PCR?? Completed?? Source: Nasal Body Site: Nose Collected Dt/Tm: 11/28/2022 14:38 Last Updated Dt/Tm: 11/29/2022 03:44 MRSA PCR Nasal Swab?? Completed?? Source: Swab Body Site: Nares Both Collected Dt/Tm: 11/28/2022 14:38 Last Updated Dt/Tm: 11/28/2022 20:55 ? Imaging(s) ?CT Chest W/O Contrast ?? 11/28/2022 09:36??by Lara Kim MD ?IMPRESSION: ?? Trace secretions in trachea with dependent airspace opacities in the upper lungs, minimally at the right lung base and also in the lingula. These findings can be seen with aspiration and active infection, pneumonia. Endobronchial spread of malignancy or postobstructive infection would have overlapping imaging appearance and observation on short interval follow up post treatment can be considered as there is otherwise progression overall since August 2022 (please see below). ?? Progression of disease overall when compared to 08/26/2022 CT chest with increase in size of left lung dominant mass and marked increased in several left lung nodules, as well as significant mediastinal and hilar adenopathy. Right upper lung peripheral nodule is singularly slightly decreased in size. ?MRI Brain W+W/O Contrast ?? 11/28/2022 00:35??by Valente BOWER , Vira Constantino ?IMPRESSION: ?? 1. Solitary 2.6 cm ring-enhancing necrotic mass in the superior left parietal lobe has increased insize compared to CT, 11/07/2022, as has associated surrounding edema and mass effect. There is now a 9 mm rightward shift of the septum pellucidum. This most likely represents a metastatic lesion. 2. 1.9 cm subcutaneous nodule in the right lateral face, incompletely imaged. Clinical correlation will dictate the need for further imaging. 3. Patchy high T2 signal in the central micah, nonspecific though most likely related to chronic microvascular ischemic change. ?Chest Portable ?? 11/28/2022 11:25??by Julius Garcia MD ?IMPRESSION: ?? No change from prior care tech radiograph 11/28/2022 ? 37??minutes spent on discharge * Soraida JUNG, Meghan: PERFORM Event Display: Patient Education/Instruction Authored Date: [id number] Inpatient Adult Discharge Instructions [place] [id number] Name: LAVERN BAHENA : 1970 Visit: 11/27/2022 16:41:00 Current Date: 12/02/2022 17:38 Account: [id number] Inpatient Adult Discharge Instructions We would like to thank you for allowing us to assist you with your healthcare needs. The following includes patient education materials and information regarding your injury/illness. Our entire staffstrives to provide an excellent experience for our patients and their families. PLEASE ENSURE YOU FOLLOW-UP PER THE INSTRUCTIONS BELOW! ?? YOUR OPINION IS IMPORTANT TO US! Please complete the survey you may receive by mail or email. Your feedback will be used to make improvements to the healthcare experiences of our patients and their families. Surveys are administered by [employer] ?? If further treatment with your primary care physician or another doctor is recommended, it is important for you to keep the appointment. Call your primary care physician or return to the Emergency Department immediately if your condition worsens, fails to improve, or new symptoms develop. If you need to find a doctor, you can call [facility] [employer] for a referral at [phone] or toll free at [phone] or log in to [email or web address].. ?? You can view and manage your care through the patient portal or by using a health care juan of your choosing. [employer] is a website that allows you to securely view your medical information including your hospital discharge summary, office visit summaries, medications and follow-up visits. You can also request appointments, renew medications, and request access to your medical information using a health care juan of your choosing, or just ask a question. You can enroll at [email or web address] or register during your next office visit. You have been discharged from [facility], Patient Care Unit: D5A. If you have any questions regarding these instructions after you leave, please call us and we will be happy to assist you. [facility] Your Care Team Attending Physician Ketty BOWER, Gonzalez Consulting Providers Ramon BOWER, Corin Discharging Providers Kimberly Mcclelland Reason for Admission Transfer from [facility] where patient was found to have new brain lesions Your Diagnosis Brain mass Pneumonia Tests Performed Below is a partial list of the tests performed during your hospitalization. You may have had other tests and procedures not included in this list. Please discuss all test results with your provider. BUN C-REACTIVE PROTEIN CBC CBC w/ Differential Comprehensive Metabolic Panel COVID-19 (2019 Novel Coronavirus) PCR Creatinine Electrolytes Glucose Level Magnesium Level MRSA PCR Nasal Swab Phosphorus Level Procalcitonin Level Brain MRI W+W/O Contrast CT Chest W/O Contrast Portable Chest Primary Care Provider Rojelio Gallardo MD Advance Directive Health Care Proxy on File Yes - Health Care Proxy Discharge Vitals Temperature: 97.2 DegF Height: 180 cm Pulse Rate: 79 bpm Weight: 85.2 kg Respiratory Rate: 18 br/min Body Mass Index:??26.23 kg/m2??High Systolic Blood Pressure:??142 mm Hg??High Body surface area: 2.06 Diastolic Blood Pressure:??97 mm Hg??High ?? Oxygen Saturation: 99 % ?? Studies Pending All tests and labs ordered during this hospital stay have been completed unless listed below. Please discuss all pending results with your provider listed above in these instructions. ?? Add On Lab Order Sputum Culture w/ Gram Smear What to do next Instructions From Your Doctor Diagnosis: -Lung cancer -Brain mass ?? Important results/instructions: -You will have close follow up with radiation oncology (on 12/05/22 at 10AM) and with medical oncology, Dr. Smith. Decisions for treatment can be made at those outpatient appointments. -It is important that you stop drinking alcohol or smoking tobacco if you wish to undergo treatmentfor these cancers. You were prescribed a nicotine patch (which you have been doing wonderfully withwhile in the hospital) as well as naltrexone which will help to cut cravings. We have arranged follow up to assist you with this and to offer outpatient support -You are being discharged today with [facility]. The agency will contact you to set up a time to visit. They can be reached at [phone].? Medication changes: -New: Dexamethasone 4 mg three times daily (this will be adjusted and tapered by radiation oncology), famotidine 20 mg twice daily (this protects your stomach while on steroids), keppra 500 mg twice daily (to prevent seizures), nicotine patch daily, naltrexone 50 mg daily?? -No other changes to your home medications ? It was a pleasure caring for you, I am glad you are feeling better! Please follow up with your PCP in the next 1-2 weeks for a post-hospitalization follow up Discharge Orders Diet:??Regular Diet Activity:??Ambulate as tolerated Wound Care:??None Code Status:?? No Resuscitation Condition:??Poor Scheduled Follow-Up Appointments Thursday 9:30 AM EDT ?? With: Paulina BOWER, Rojelio Glover Where: [address] [address]- Status: Pending You Need to Schedule the Following Appointments Follow Up with??Mishel Oropeza MD When:??12/04/2022 10:00 AM EDT Where: [address] [place] [address]- Follow Up with??Luis BOWER, Kevin Carr When:??Within 1 month Why: Please call to arrange follow up if you do not hear from them Where: [address] [facility] [place] [address]- Follow Up with??Paulina BOWER, Rojelio Glover When:??Within Within two weeks Where: [address] [place] [address]- Discharge Medications LAVERN BAHENA :1970 Visit Date:11/27/2022 Medications: Please continue your medications until treatment is completed or stopped by your provider. Medications not listed below should be discontinued. Discuss any questions related to medications with your provider. What How Much When Instructions Next Dose New Dexamethasone (dexamethasone 4 mg oral tablet) 1 tab(s) Oral 3 times a day Duration: 14 Days to be tapered by radiation oncology ?? Pickup at [facility]/pharmacy #[id number] [facility] 12/02/22 9pm New Famotidine (famotidine 20 mg oral tablet) 1 tab(s) Oral Twice a day Duration: 14 Days Pickup at [facility]/pharmacy #0693 [facility] 12/02/22 9pm New levETIRAcetam (levETIRAcetam 500 mg oral tablet) 1 tab(s) Oral Twice a day Duration: 30 Days Pickup at [facility]/pharmacy #0693 [facility] 12/02/22 9pm New Nicotine (nicotine 21 mg/ 24 hr transdermal film, extended release) 1 patch(es) Topically Daily Duration: 30 Days apply to skin ?? Pickup at [facility]/pharmacy #[id number] Tomorrow 12/03/22 9am Remove old patch prior to applying new patch Changed apixaban (apixaban 5 mg oral tablet) 1 tab(s) Oral Twice a day [facility] 12/02/22 9pm Unchanged Acetaminophen (acetaminophen 325 mg oral tablet) 975 Milligram Oral Once as needed for Pain , Moderate Tomorrow 12/03/22 4pm as needed Unchanged Albuterol (Albuterol (Eqv-ProAir HFA) 90 mcg/ inh inhalation aerosol) 2 puff(s) Inhalation Every 6 hours Take as prescribed Unchanged Budesonide-Formoterol (Symbicort 160mcg/ 4.5mcg Inhaler) 2 puff(s) Inhalation Twice a day Take as prescribed Unchanged Fluticasone Nasal (Flonase 50 mcg/ inh nasal spray) 2 spray(s) Nares, Both Daily in the morning Take as prescribed Unchanged Folic Acid (folic acid 1 mg oral tablet) 1 tab(s) Oral Daily Tomorrow 12/03/22 9am Unchanged Mirtazapine (mirtazapine 30 mg oral tablet) 1 tab(s) Oral Daily at Bedtime Tonight 12/02/22 9pm Unchanged Multivitamin (Daily Meg oral tablet) 1 tab(s) Oral Daily Tomorrow 12/03/22 9am Unchanged Naltrexone (naltrexone 50 mg oral tablet) 1 tab(s) Oral Daily Pickup at [facility]/pharmacy #[id number] Tomorrow 12/03/22 9am Pharmacy Information [facility]/pharmacy #[id number]: [address] [place], [place] [id number] [phone] ?? What How Much When Comments Stop Taking Betamethasone-Clotrimazole Topical (betamethasone-clotrimazole 0.05%-1% topical cream) See instructions Apply gentle coat apply twice daily and then wash hands ?? Stop Taking Cannabis (Schedule I Substance) Stop Taking Escitalopram (escitalopram 20 mg oral tablet) 1 tab(s) Oral Daily Stop Taking Ibuprofen Stop Taking Miscellaneous Rx ([facility] B-1 100 MG TABLET) 1 tab(s) Oral Daily Stop Taking Oxycodone (oxyCODONE 5 mg oral tablet) 5 Milligram Oral Every 6 hours as needed for Pain , Moderate Test Results Below is a partial list of the most recent Laboratory test results done prior to this discharge. You may have had other tests and procedures not included in this list. Please discuss all test resultswith your provider. Est Creatinine Clearance - 132.43 mL/min (11/28/2022) BUN (12/01/2022) ???BUN - 12 mg/dL C-REACTIVE PROTEIN (11/28/2022) ???C-Reactive Protein - 1.0 mg/dL CBC (12/01/2022) ???WBC - 9.0 k/mm3???RBC - 4.12 m/mm3???Hgb - 13.1 Gm/dL???Hct - 39.6 %???MCV - 96.1 femtoliters???MCH - 31.8 pg???MCHC - 33.1 g/dL???Platelet Count - 70 k/mm3???RDW-SD - 49.2 femtoliters???MPV - 11.5 femtoliters???Nucleated RBC (Automated) - 0.0 #/100 WBC'S???Abs. NRBC - 0.0 k/mm3 CBC w/ Differential (11/28/2022) ???WBC - 6.9 k/mm3???RBC - 4.68 m/mm3???Hgb - 14.9 Gm/dL???Hct - 45.2 %???MCV - 96.6 femtoliters???MCH - 31.8 pg???MCHC - 33.0 g/dL???Platelet Count - 66 k/mm3???RDW-SD - 51.4 femtoliters???MPV - 12.2 femtoliters???Nucleated RBC (Automated) - 0.0 #/100 WBC'S???Abs. NRBC - 0.0 k/mm3???Abs. Neut - 5.9 k/mm3???Abs. Lymph - 0.5 k/mm3???Abs. [place] - 0.4 k/mm3???Abs. Eo - 0.0 k/mm3???Abs. Baso - 0.0 k/mm3???Neut % - 86.3 %???Lymph % - 7.4 %???[place] % - 5.7 %???Eos % - 0.1 %???Baso % - 0.1 %???Imm Gran - 0.4 %???Abs. Imm Gran - 0.0 k/mm3 Comprehensive Metabolic Panel (11/28/2022) ???Sodium - 142 mmol/L???Potassium - 4.0 mmol/L???Chloride - 102 mmol/L???Bicarbonate Level - 26 mmol/L???Anion Gap - 14???Glucose Level - 131 mg/dL???BUN - 16 mg/dL???Creatinine-Blood - 0.7 mg/dL???Estimated GFR Creatinine - 110 ML/MIN/1.73 M2???Calcium - 9.2 mg/dL???Protein, Total - 6.7 Gm/dL???Al bumin - 4.0 Gm/dL???AG Ratio - 1.5???Alkaline Phosphatase - 98 units/L???AST (SGOT) - 32 units/L???ALT (SGPT) - 26 units/L???Bilirubin, Total - 0.6 mg/dL COVID-19 (2019 Novel Coronavirus) PCR (11/28/2022) ???COVID-19 PCR Specimen Source - NASAL???COVID-19 PCR Result - NEGATIVE Creatinine (12/01/2022) ???Creatinine-Blood - 0.7 mg/dL???Estimated GFR Creatinine - 114 ML/MIN/1.73 M2 Electrolytes (12/01/2022) ???Sodium - 136 mmol/L???Potassium - 3.8 mmol/L???Chloride - 103 mmol/L???Bicarbonate Level - 25 mmol/L???Anion Gap - 8 Glucose Level (11/29/2022) ???Glucose Level - 143 mg/dL Magnesium Level (11/29/2022) ???Magnesium - 2.1 mg/dL MRSA PCR Nasal Swab (11/28/2022) ???MRSA PCR Result - Negative, MRSA target DNA not detected.???S Aureus PCR Result - Negative, SA target DNA not detected. Phosphorus Level (11/29/2022) ???Phosphorus - 2.6 mg/dL Procalcitonin Level (12/01/2022) ???Procalcitonin - 0.05 ng/mL Allergies (NKA means No Known Allergies) No Known Medication Allergies Other Environmental Allergy??(POLLEN) Problems Active Problems??(13) Alcoholism?? Concussion?? COPD (chronic obstructive pulmonary disease)?? Elevated liver enzymes?? Fatty liver?? Hyperlipidemia?? Lateral epicondylitis of right elbow?? Low back pain?? Major depression?? Major depression?? Marijuana use?? Recovering alcoholic?? Tobacco abuse?? Education Materials Below is the list of Educational Leaflet Providered with your Discharge Instructions. Naltrexone Oral Tablet?? Levetiracetam Oral Tablet?? Dexamethasone Oral Tablet?? Valuables and Belongings I fully understand and agree that [facility] accepts no responsibility for all my personal property including clothing, toilet articles, radios, jewelry, dentures, hearing aids, rings, money, or any other property that is in my possession or is brought to me after admission. I understand certain valuables may be placed in a hospital safe for a short period of time. I understand that the hospital is not liable for loss or damage due to accident, fire, or other natural occurrence while said property is in the safe. I accept full responsibility for any personal property that I keep with me, and will not hold the hospital responsible in case of loss or disappearance. I acknowledge that i have been encouraged to send valuables and belongings home. ?? Review of Valuable and Belonging List: With family Disposition of Belongings: Sent home with patient/family Possessions released to: daughter took belongings home. Date for Pt to Sign Valuables/Belongings: 11/27/22 17:38:00 ?? Other Discharge Information ? Case Management Discharge Plan?? Discharge Plan?? Discharge Agency Information?? Discharge Level of Care at Discharge: Homehealth/VNA Name of Agency #1: [facility] Discharge Rx Program: Discharge Prescription Program Agency Engagement Liaison #1: [phone] Discharge VNA/Hospice/Home Care: [facility] [phone] Service Start Date and Time #1: 12/03/22 12:00:00 ?? Service Categories #1: Physical Therapy, Detention ?? Service Comments #1: You are being discharged today with [facility]. The agency will contact you to set up a time to visit. They can be reached at [phone]. ?? Pulmonary Rehab Status?? Pulmonary Rehab Discharge Status?? Respiratory Rate: 18 br/min ? Common Emergency Awareness Tips IS IT A STROKE? Act FAST and Check for these signs: FACE Does the face look uneven? ARM Does one arm drift down? SPEECH Does their speech sound strange? TIME Call at any sign of stroke ?? Heart Attack Signs Chest discomfort: Most heart attacks involve discomfort in the center of the chest and lasts more than a few minutes, or goes away and comes back. It can feel like uncomfortable pressure, squeezing, fullness or pain. Discomfort in upper body: Symptoms can include pain or discomfort in one or both arms, back, neck, jaw or stomach. Shortness of breath: With or without discomfort. Other signs: Breaking out in a cold sweat, nausea, or lightheaded. Remember, MINUTES DO MATTER. If you experience any of these heart attack warning signs, call to get immediate medical attention! ?? Smoking can increase your chances of developing chronic health problems and can cause harmful effects to other family members in your house. If you smoke, you are strongly encouraged to quit. Please call [facility] [employer] [facility] at [phone] or [phone]) or log in to www.[email or web address] for referrals to smoking cessation programs. ?? 256 Suicide & Crisis Lifeline is available 24/11 if you or someone you know needs to find a reason to keep living. By calling 478 you'll be connected to a skilled, trained counselor at a crisis center in your area. INPATIENT DISCHARGE INSTRUCTIONS SIGNATURE BRIANNA LAVERN BAHENA Location:[facility] Registration Date and Time:11/27/2022 16:41 EDT Primary Care Physician: Rojelio Gallardo MD, Attending Physician: Ketty BOWER, [facility], I LAVERN BAHENA, have received the above patient education materials/instructions and have verbalized understanding. If ambulance or transport services are being used I further acknowledge being given a choice of service. ?? If you need to contact me, please call me at this number: . Patient/Civil Engineering Teacher Name: Patient/Civil Engineering Teacher Signature: Relationship to Patient: Witness Name/Signature: Date: * Meghan Quigley RN: PERFORM Event Display: Patient Education Leaflets Authored Date: [id number] [place] Living Smoke Free ?? 415 ? LIVING SMOKE FREE ?? Smoking is one of the hardest habits to break.?? It takes most smokers 5-6 tries before they finally quit. So, don???t give up.?? Millions of people have given up smoking and so can you! The benefits of quitting start right away and keep improving the longer you go without smoking: ? Improve your ability to breathe without coughing or shortness of breath ? Reduce your risk of lung cancer, heart disease, chronic lung disease ? Have more money in your pocket ? Have whiter teeth, fewer wrinkles and softer skin ? Have better smelling hair, breath, clothes, home and car ? Improve your sense of taste and smell TRIGGERS TO SMOKING RELAPSE KNOW WHY YOU SMOKE AND WHAT YOUR SMOKING TRIGGERS ARE.?? WRITE YOUR TRIGGERS DOWN AND LOOK AT THEM OFTEN. Understand or identify your personal triggers. Some triggers may include: ? Drinking or socializing ? Being around smoking and/or smokers ? After a meal or work break time ? In the car stressful situations or boredom or loneliness ? When you wake up DEVELOP COPING SKILLS DEVELOP AND USE COPING SKILLS. Quitting smoking is a big change.?? People will congratulate you and you have the right to be proud?? But at times you may miss smoking, so plan ahead to resist temptation. ? Ask for the support of your family and friends.?? Call a friend when you want to smoke. ? Avoid people or places that can trigger you to smoke.?? Ask others not to smoke around you. ? Spend time in places where you can???t smoke, such as a restaurant. ? Surround yourself with non-smokers. ? Remind yourself why you quit.?? Stop yourself from ???just one more?? . ? Recognize triggers and find a way to cope. ? Change your habits; go for a walk after meals instead of smoking. ? Save the cigarette money and reward yourself. ? Exercise every day.?? This will reduce stress, improve your mood and keep weight stable or at a loss. ? INFORMATION ABOUT QUITTING GET SUPPORT. ?? Support programs can make an important difference, especially for the heavy smoker. ? QUITWORKS: Fax referrals to: http://quitworks.Biodesix.org/ ? [place] Smokers??? Helpline: ? [place]: 1 (955) Quit-Now ( ) ? [place]: 1 (421) -8-D??curtis ( ) ? Quit Tips Line (24 hour recorded messages): www.Biodesix.org (quit smoking information & local quit smoking support programs) ? SMOKING CESSATION RESOURCES Hospital Based Programs: Contact: [facility] ([place]) or [phone], ext. [phone] Acupuncture: ?? [facility] ([place]) Acupuncture [facility] ([place]) Traditional Acupuncture ([place]) Hypnosis: ?? [place] Ethical Hypnosis [place] ([place]) Additional Resources: ?? [place] Lung Association ([facility]) ([place]) [place] Lung Association Tobacco Quit-Line 7-673-[facility] ( ); www.lungusa.org Deaf or Hearing Impaired 1 (882) ??? TDD - 1477 [place] Cancer Society (481) LQF-2342; www.cancer.org [place] Heart Association ; www.americanheart.org Try to Stop www.trytostop.org [facility] www.nationaljewish.org Tobacco Free Initiative: World Health Organization www.who.int/ursula [place] Smokers Helpline [place]: 1 (915) Quit-Now( ) [place]: 1 (533) -8-D??curtis ( ) ?? [employer] Fax referrals to: http://quitQuintiles.Empir[employer].org/ [facility] Start to Stop Program Check with your nearest [employer] ?? SMOKING CESSATION OPTIONS Acupuncture: ?? Flexible needles inserted into the skin to reduce the side effects of nicotine withdrawal. ?? Behavior Modification Program: ?? Helps you to understand your smoking history, reasons for smoking, set a target date to quit and plan how to resist the urge to smoke. ?? Hypnosis: ?? Hypnosis can help strengthen your motivation and reduce cravings for nicotine. ?? Nicotine Replacement Therapy (NRT): ?? Provides nicotine to help reduce the craving for nicotine and other withdrawal symptoms.?? This therapy can be provided by: ? Nicotine gum ? Nicotine inhalation device ? Nicotine lozenge ? Nicotine patch ?? Prescription Medications: bupropion sr (wellbutrin or zyban) or varenicline (chantix) ? * Meghan Quigley RN: PERFORM Event Display: Patient Education Leaflets Authored Date: [id number] Brain Tumor ?? [id number] Brain Tumor Your body makes new cells to replace old or damaged ones all the time. A tumor starts when cells change (mutate) and start to grow out of control. The changed (abnormal) cells often grow to form a lump or mass called a tumor. Tumors can be cancer (malignant) or not cancer (benign). You have been seen today for a possible brain tumor. But more testing and follow-up may be needed to diagnose the type of tumor and to plan the best treatment. ??? A benign tumor will stay where it first started and tends to grow slowly. ??? A malignant tumorcan grow into nearby tissues and tends to grow faster. Most cancers can spread (metastasize) to other parts of the body. Cancers that start in the brain rarely do this. But they can spread to other parts of the brain. Types of brain tumors A primary brain tumor is one that starts in cells that make up the brain. It may be benign or malignant. At this time, scientists don???t know what causes primary brain tumors. A metastatic brain tumor comes from cancer that starts somewhere else in the body and spreads to the brain. These are the most common kind of brain tumor. Either type of tumor can damage the brain by spreading through it, or by pressing on and squeezing the brain inside the skull. Because of this, any type of brain tumor can be dangerous, because it can grow large enough to affect different parts of the brain. These are the most common primary brain tumors: ??? Glioma. This type of tumor is most often cancer (malignant). It tends to grow fast. ??? Meningioma. This type of tumor is usually benign. But it can cause problems. This depends on how big it is and where it is in the brain. There are many other types of brain tumors that are less common. ?? How are brain tumors diagnosed? Most brain tumors cause headaches, vision changes, and balance problems. Behavior may change. Theseproblems lead a person to seek medical care. If a brain tumor is suspected, the first test done is often imaging with an MRI of the brain. If anMRI can't be done, a CT scan might be done. These tests give a clear picture of the brain and nearby tissue. A small piece (sample) of tumor tissue (biopsy) is often needed. The sample is taken during surgery. The sample is tested to find out what kind of brain tumor it is and how fast it's growing. ?? How are brain tumors treated? There are a lot of different ways to treat brain tumors. You will talk with your treatment team to decide on the best treatment plan for you. Your options depend on things like the kind of tumor you have, where the tumor is, how fast it's growing, problems it's causing, and your preferences. Most brain tumors need to be treated right away. Surgery is done to treat most primary brain tumors. Sometimes radiation therapy or chemotherapy are done after surgery. Other treatments may be used. These depend on the kind of tumor. A brain tumor may cause other problems such as nausea, headaches, seizures, or brain swelling. These problems are also treated. ?? Home care You can do your normal activities as you feel up to it. But if you've had a seizure or fainted, youshould not drive, take baths alone, or swim until your healthcare provider says it???s safe. Take any seizure medicine as directed to help prevent another episode. If you have headaches or nauseas, use the medicines you are given. ?? Follow-up care It's important to follow up with your healthcare provider or a specialist as directed. If you're having seizures, don't drive or operate dangerous equipment until you're cleared by your provider. ?? When to get medical advice Call your healthcare provider right away??if you have any of these: ??? New seizures or seizures that keep happening ??? Repeated vomiting ??? You feel less alert or it???s hard to wake you up ??? New changes to your vision, speech, or hearing ??? Weakness on one side of your body or loss of coordination and balance ??? Severe headache ??? Confusion ??? Trouble thinking, speaking, or getting your words out Ask your healthcare provider whom you should call and what number you should use if you have problems at home. Be sure you know how to get help anytime, including after office hours and on weekends and holidays. ?? Last Reviewed Date: 2021 ?? The [employer]. All rights reserved. This information is not intended as a substitute for professional medical care. Always follow your healthcare professional's instructions. ?? * Meghan Quigley RN: PERFORM Event Display: Patient Education Leaflets Authored Date: [id number] Famotidine Oral Tablet ?? Famotidine Oral Tablet Brands: Pepcid Uses This medicine is used for the following purposes: ??? heartburn ??? inflammation of stomach ??? prevent heartburn ??? prevent indigestion ??? stomach acid ??? stomach acid reflux ??? ulcers in stomach or intestines ??? ulcers in stomach or intestines ?? Instructions This medicine may be taken with or without food. Swallow with a full glass (8 oz) of water unless your doctor gives you different instructions. Keep the medicine at room temperature. Avoid heat and direct light. Keep the medicine away from heat and light. This medicine can reduce the absorption of other medicines. Talk to your doctor or pharmacist aboutthe best times to use this product. It is important that you keep taking each dose of this medicine on time even if you are feeling well. If you forget to take a dose on time, take it as soon as you remember. If it is almost time for thenext dose, do not take the missed dose. Return to your normal schedule. Do not take 2 doses at one time. Drug interactions can change how medicines work or increase risk for side effects. Tell your healthcare providers about all medicines taken. Include prescription and [id number] medicines, vitamins, and herbal medicines. Speak with your doctor or pharmacist before starting or stopping any medicine. Tell your doctor if symptoms do not get better or if they get worse. ?? Cautions Tell your doctor and pharmacist if you ever had an allergic reaction to a medicine. Do not use the medication any more than instructed. Tell the doctor or pharmacist if you are , planning to be , or . Do not share this medicine with anyone who has not been prescribed this medicine. ?? Side Effects The following is a list of some common side effects from this medicine. Please speak with your doctor about what you should do if you experience these or other side effects. ??? constipation or diarrhea ??? headaches Call your doctor or get medical help right away if you notice any of these more serious side effects: ??? bleeding or bruising ??? chest pain ??? confusion ??? dizziness ??? fainting ??? fast or irregular heart beats ??? seizures ??? shortness of breath A few people may have an allergic reaction to this medicine. Symptoms can include difficulty breathing, skin rash, itching, swelling, or severe dizziness. If you notice any of these symptoms, seek medical help quickly. ?? Extra Please speak with your doctor, nurse, or pharmacist if you have any questions about this medicine. ?? [email or web address] IMPORTANT NOTE: This document tells you briefly how to take your medicine, but it does not tell youall there is to know about it. Your doctor or pharmacist may give you other documents about your medicine. Please talk to them if you have any questions. Always follow their advice. There is a more complete description of this medicine available in [place]. Scan this code on your smartphone or tablet or use the web address below. You can also ask your pharmacist for a printout. If you have any questions, please ask your pharmacist. The display and use of this drug information is subject to Terms of Use. Copyright(c) 2022 [employer]. ?? The [employer], [employer]. All rights reserved. This information is not intended as a substitute for professional medical care. Always follow your healthcare professional's instructions. ?? Patient Care team information Care Team Personnel Name: Kevin Rangel Position: [facility] RN Member Role: Primary Care Nurse Name: Ginny Bales RN Position: S RN Member Role: Primary Care Nurse Name: Rojelio Gallardo MD Position: S Physician - Primary Care Member Role: PCP Address: Address: [address] [place] [address]- Care Team Related Persons Name: LIZETTE RAMIREZ Address: home [address] [place] [id number] Name: HAILEY JOHNSON Address: [place] [address]
--- OUTSIDE RECORDS SUMMARY | 2022-12-21 14:27 | XMS_ITS | Continuity of Care Document ---
Author Name Unknown Organization [facility] Address [address] [place] [address] adriana, [address] [place] [address]- Care Team Providers Care Flat Surfacer Jewel Name Role Phone Paulina BOWER, Rojelio Glover Primary Care Physician Encounter [facility] Date(s): 10/27/22 - 11/26/22 [facility] [address] [place] [address], [address] [place] [address]- Allergies, Adverse Reactions, Alerts No Known Medication [...] Vaccine (oldterm) 05/04/99 Given 1Result Comment: [04/05/2018] [facility] [id number] Medications acetaminophen 325 mg oral tablet 975 [...] 1 Refills, Maintenance, 04/05/21 10:17:00 EST, [id number], Partial fill upon patient request if the prescription is for a schedule II opioid drug., 2 puffs Inhalation Every 6 hours, 178, cm, ... Start Date: 04/05/21 Status: Ordered apixaban 5 mg oral tablet 1 tablet = 5 mg, By Mouth, 2 times a day, # 60 tablet, 2 Refills, Maintenance, 10/24/22 14:55:00 EDT, Tablet, [facility]/pharmacy #[id number], Partial fill upon patient request if the prescription is for a schedule II opioid drug., 180, cm, 10/03/22 9:16:00 EDT, H... Start Date: 10/24/22 Status: Ordered betamethasone-clotrimazole 0.05%-1% topical cream See Instructions, Apply gentle coat apply twice daily and then wash hands, # 45 Gm, 0 Refills, Maintenance, 08/05/22 10:04:00 EDT, [facility]/pharmacy #[id number], Partial fill upon patient request if the prescription is for a schedule II opioid drug., Apply gentl... Start Date: 08/05/22 Status: Ordered Cannabis (Schedule I Substance) 0 Refills, Maintenance, 04/05/18 8:17:12 EST Start Date: 04/05/18 Status: Ordered [facility] B-1 100 MG TABLET [facility] B-1 100 MG TABLET, 1, tablet, By Mouth, Daily, # 90 tablet, 1 Refills, Maintenance, 10/07/22 14:30:00 EDT, 180, cm, 10/03/22 9:16:00 EDT, Height, 91.9, kg, 09/05/22 11:52:00 EDT, Dry Weight Start Date: 10/07/22 Status: Ordered Daily Meg oral tablet 1 tablet, By Mouth, Daily, # 90 tablet, 1 Refills, [facility], 90, TAKE 1 TABLET BY MOUTH EVERY DAY, 178, cm, 08/08/21 12:59:00 EDT, Height Start Date: 10/17/21 Status: Ordered Eliquis Starter Pack 5 mg oral tablet 2 tablet = 10 mg, By Mouth, 2 times a day, followed by 1 tablet by mouth twice daily for 23 days, #74 tablet, 0 Refills, Maintenance, 08/06/22 5:55:00 EDT, [id number], Partial fill upon patient request if the prescription is for a schedule II... Start Date: 08/06/22 Stop Date: 08/13/22 Status: Ordered escitalopram 20 mg oral tablet 1 tablet, By Mouth, Daily, # 90 tablet, 1 Refills, Maintenance, 07/11/22 13:19:00 EST, [facility], 178, cm, 11/29/21 11:03:00 EDT, Height Start Date: 07/11/22 Status: Ordered Flonase 50 mcg/inh nasal spray 2 sprays, Nares, Both, Daily in AM, # 15.8 mL, 5 Refills, Maintenance, 10/29/21 8:58:00 EDT, [place],[facility]/pharmacy #[id number], Partial fill upon patient request if the prescription is for a schedule II opioid drug., 2 sprays Nares, Both Daily in AM, 178, cm,... Start Date: 10/29/21 Status: Ordered folic acid 1 mg oral tablet 1, tablet, By Mouth, Daily, # 90 tablet, Refills 1, Maintenance, 09/10/22 11:41:00 EDT, Route to Pharmacy Electronically, [facility], 180, cm, 09/05/22 11:52:00 EDT, Height, 91.9, kg, 09/05/22 11:52:00 EDT, Dry Weight Start Date: 09/10/22 Status: Ordered Ibuprofen Refills 0, Maintenance, 09/11/20 8:12:00 EDT, Partial fill upon patient request if the prescriptionis for a schedule II opioid drug. Start Date: 09/11/20 Status: Ordered mirtazapine 30 mg oral tablet 1 tablet = 30 mg, By Mouth, Daily at bedtime, # 90 tablet, 1 Refills, Maintenance, 08/05/22 10:01:00 EDT, Tablet, [id number], Partial fill upon patient request if the prescription is for a schedule II opioid drug., 178, cm, 08/05/22 9:49:00 ED... Start Date: 08/05/22 Status: Ordered naltrexone 50 mg oral tablet 1 tablet = 50 mg, By Mouth, Daily, # 30 tablet, 5 Refills, Maintenance, 10/29/21 8:57:00 EDT, Tablet, [facility]/pharmacy #[id number], Partial fill upon patient request if the prescription is for a schedule II opioid drug., 178, cm, 10/29/21 8:40:00 EDT, Height Start Date: 10/29/21 Status: Ordered oxyCODONE 5 mg oral tablet 5 mg, By Mouth, Every 6 hours, PRN, # 10 tablet, Refills 0, Tot. Refills 0, Soft Stop, Pain , Moderate, 09/05/22 16:56:00 EDT, Route to Pharmacy Electronically, [facility], Partial fillupon patient request if the prescription is for a s... Start Date: 09/05/22 Stop Date: 09/07/22 Status: Ordered Symbicort 160mcg/4.5mcg Inhaler 2, puffs, Inhalation, 2 times a day, # 1 each, Refills 5, Tot. Refills 5, Maintenance, 09/18/20 8:45:00 EDT, Aerosol, Route to Pharmacy Electronically, [id number], [facility]/pharmacy #[id number], 178, cm, 09/18/20 8:15:00 EDT, Height, [...] Active 1given comprehesive chol diet handout 2counsel [id number] Social History Social History Type Response Smoking Status 10 or more cigarette s (1/2 pack or more)/day in last 30 days; Interested in cessation: No; Patient wants NRT during admission No entered on: 10/03/22 Sex Patient Care team information Care Team Personnel Name: Rojelio Gallardo MD Position: S Physician - Primary Care Member Role: PCP Address: Address: [address] [place] [address]- Care Team Related Persons Name: LIZETTE RAMIREZ Address: home [address] [place] [address] Name: HAILEY JOHNSON Address: [place] [id number]
--- OUTSIDE RECORDS SUMMARY | 2022-12-21 14:27 | XMS_ITS | Continuity of Care Document ---
Author Name Unknown Organization [facility] Address [address] [place] [address] adriana, [address] [place] [address]- Care Team Providers Care Farmworker Machine Name Role Phone Paulina BOWER, Rojelio Glover Primary Care Physician [facility]counter [facility] Date(s): 10/01/22 - 10/08/22 [facility] [address] [place] [address], [address] [place], [place] [address] Attending Physician: Coni Bell NP Allergies, Adverse Reactions, Alerts No Known Medication [...] Vaccine (oldterm) 05/04/99 Given 1Result Comment: [04/05/2018] [facility] [id number] Medications acetaminophen 325 mg oral tablet 975 [...] cm, ... Start Date: 04/05/21 Status: Ordered betamethasone-clotrimazole 0.05%-1% topical cream See Instructions, Apply gentle coat apply twice daily and then wash hands, # 45 Gm, 0 Refills, Maintenance, 08/05/22 10:04:00 EDT, [id number], Partial fill upon patient [...] Mouth, Daily, # 90 tablet, 1 Refills, [facility], 90, TAKE 1 TABLET BY MOUTH EVERY [...] Refills, Maintenance, 07/11/22 13:19:00 EST, [facility], 178, cm, 11/29/21 11:03:00 EDT, Height Start Date: 07/11/22 Status: Ordered Flonase 50 mcg/inh nasal spray 2 sprays, Nares, Both, Daily in AM, # 15.8 mL, 5 Refills, Maintenance, 10/29/21 8:58:00 EDT, [place],[facility]/pharmacy #[id number], Partial fill upon patient request if the prescription is for a schedule II opioid drug., 2 sprays Nares, Both Daily in AM, 178, cm,... Start Date: 10/29/21 Status: Ordered folic acid 1 mg oral tablet 1, tablet, By Mouth, Daily, # 90 tablet, Refills 1, Maintenance, 09/10/22 11:41:00 EDT, Route to Pharmacy Electronically, [facility] STORE [address]5590, 180, cm, 09/05/22 11:52:00 EDT, Height, 91.9, [...] 1 Refills, Maintenance, 08/05/22 10:01:00 EDT, Tablet, [facility]/pharmacy #[id number], Partial fill upon patient request if the prescription is for a schedule II opioid drug., 178, cm, 08/05/22 9:49:00 ED... Start Date: 08/05/22 Status: Ordered naltrexone 50 mg oral tablet 1 tablet = 50 mg, By Mouth, Daily, # 30 tablet, 5 Refills, Maintenance, 10/29/21 8:57:00 EDT, Tablet, [facility]/pharmacy #[id number], Partial fill upon patient request if the prescription is for a schedule II opioid drug., 178, cm, 10/29/21 8:40:00 EDT, Height Start Date: 10/29/21 Status: Ordered oxyCODONE 5 mg oral tablet 5 mg, By Mouth, Every 6 hours, PRN, # 10 tablet, Refills 0, Tot. Refills 0, Soft Stop, Pain , Moderate, 09/05/22 16:56:00 EDT, Route to Pharmacy Electronically, [facility], Partial fillupon patient request if the prescription is for a s... Start Date: 09/05/22 Stop Date: 09/07/22 Status: Ordered Symbicort 160mcg/4.5mcg Inhaler 2, puffs, Inhalation, 2 times a day, # 1 each, Refills 5, Tot. Refills 5, Maintenance, 09/18/20 8:45:00 EDT, Aerosol, Route to Pharmacy Electronically, [id number], [facility]/pharmacy #[id number], 178, cm, 09/18/20 8:15:00 EDT, Height, [...] Active 1given comprehesive chol diet handout 2counsel [id number] Vital Signs Most recent to oldest [Reference Range]: 1 Height 180 cm (10/01/22 3:32 PM) Weight 91.1 kg (10/01/22 3:32 PM) Oxygen Saturation [94-100 %] 96 % (10/01/22 3:32 PM) Pulse Rate [55-90 bpm] 120 bpm *H* (10/01/22 3:32 PM) Body Mass Index [18.5-24.99 kg/m2] 28.12 kg/m2 *H* (10/01/22 3:32 PM) Blood Pressure [90-138/55-84 mm Hg] 128/ 72mm Hg (10/01/22 3:32 PM) Temperature [96.8-100.4 DegF] 97.4 DegF (10/01/22 3:32 PM) Blood pressure sites Arm, right (10/01/22 3:32 PM) Temperature Route Temporal (10/01/22 3:32 PM) Weight Obtained Via Standing scale (10/01/22 3:32 PM) Social History Social History Type Response Smoking Status 10 or more cigarette s (1/2 pack or more)/day in last 30 days; Interested in cessation: No; Patient wants NRT during admission No entered on: 10/03/22 Sex Patient Care team information Care Team Personnel Name: Paulina BOWER, Rojelio Glover Position: S Physician - Primary Care Member Role: PCP Address: Address: [address] [place] [address]- Care Team Related Persons Name: LIZETTE RAMIREZ Address: [place] [address] Name: HAILEY JOHNSON Address: [place] [address]
--- OUTSIDE RECORDS SUMMARY | 2022-12-21 14:27 | XMS_ITS | Continuity of Care Document ---
Author Name Unknown Organization [facility] Eric lt Address [address] [place] [address]- Care Team Providers Care Silver Lap Machine Tender Name Role Phone Rojelio Gallardo MD Primary Care Physician Encounter [facility] Date(s): 08/08/21 - 08/15/21 [facility] Adult [address] [place] [address]- Attending Physician: Rojelio Gallardo MD Allergies, Adverse Reactions, Alerts Substance Reaction Severity Status Other Environmental Allergy POLLEN Active Immunizations Given and Recorded Vaccine Date Status Refusal Reason SARS-CoV-2 (COVID-19) mRNA-1273 vaccine 10/02/20 R ecorded SARS-CoV-2 (COVID-19) mRNA-1273 vaccine 08/31/20 R ecorded tetanus/diphtheria/pertussis, acel(Tdap) 03/24/19 Given tetanus/diphtheria/pertussis, acel(Tdap) 03/22/09 Given influenza virus vaccine, inactivated 03/24/19 Give n influenza virus vaccine, inactivated 1 04/05/18 Gi purvi Tetanus Toxoid Vaccine (oldterm) 05/04/99 Given 1Result Comment: [04/05/2018] [facility] [id number] Medications Albuterol (Eqv-ProAir HFA) 90 mcg/inh inhalation aerosol 2 puffs, Inhalation, Every 6 hours, # 1 each, 1 Refills, Maintenance, 04/05/21 10:17:00 EST, [facility]/pharmacy #[id number], Partial fill upon patient request if the prescription is for a schedule II opioid drug., 2 puffs Inhalation Every 6 hours, 178, cm, 04/05/... Start Date: 04/05/21 Status: Ordered Cannabis (Schedule I Substance) 0 Refills, Maintenance, 04/05/18 8:17:12 EST Start Date: 04/05/18 Status: Ordered escitalopram 20 mg oral tablet 1 tablet = 20 mg, By Mouth, Daily, # 30 tablet, 0 Refills, Maintenance, 07/17/21 10:03:00 EDT, [facility]/pharmacy #[id number], Partial fill upon patient request if the prescription is for a schedule II opioid drug., 178, cm, 07/17/21 9:57:00 EDT, Height, 77, kg,... Start Date: 07/17/21 Status: Ordered folic acid 1 mg oral tablet 1 mg, 1, tablet, By Mouth, Daily, # 90 tablet, Refills 1, Tot. Refills 1, Maintenance, 08/08/21 13:05:00 EDT, Route to Pharmacy Electronically, [facility]/pharmacy #[id number], Partial fill upon patient request if the prescription is for a schedule II opioid drug.... Start Date: 08/08/21 Status: Ordered Ibuprofen Refills 0, Maintenance, 09/11/20 8:12:00 EDT, Partial fill upon patient request if the prescriptionis for a schedule II opioid drug. Start Date: 09/11/20 Status: Ordered mirtazapine 15 mg oral tablet See Instructions, 1/2 tablet by mouth at bedtime for one week, then 1 tablet by mouth at bedtime., # 30 tablet, 2 Refills, Maintenance, 08/08/21 13:08:00 EDT, [facility]/pharmacy #[id number], Partial fill upon patient request if the prescription is for a schedule... Start Date: 08/08/21 Status: Ordered multivitamin Multiple Vitamins oral tablet 1 tablet, By Mouth, Daily, # 90 tablet, 1 Refills, Maintenance, 04/05/21 10:18:00 EST, Tablet, [facility]/pharmacy #[id number], Partial fill upon patient request if the prescription is for a schedule II opioid drug., 1 tablet By Mouth Daily, 178, cm, 04/05/21 10:0... Start Date: 04/05/21 Status: Ordered naltrexone 50 mg oral tablet 1 tablet = 50 mg, By Mouth, Daily, # 30 tablet, 5 Refills, Maintenance, 05/17/21 8:18:00 EST, Tablet, [facility]/pharmacy #[id number], Partial fill upon patient request if the prescription is for a schedule II opioid drug., 178, cm, 05/17/21 7:39:00 EST, Height, 7... Start Date: 05/17/21 Status: Ordered Symbicort 160mcg/4.5mcg Inhaler 2, puffs, Inhalation, 2 times a day, # 1 each, Refills 5, Tot. Refills 5, Maintenance, 09/18/20 8:45:00 EDT, Aerosol, Route to Pharmacy Electronically, [id number], [facility]/pharmacy #[id number], 178, cm, 09/18/20 8:15:00 EDT, Height, 77... Start Date: 09/18/20 Status: Ordered thiamine 100 mg oral tablet 100 mg, 1, tablet, By Mouth, Daily, # 90 tablet, Refills 1, Tot. Refills 1, Maintenance, 08/08/21 13:05:00 EDT, Route to Pharmacy Electronically, [facility]/pharmacy #[id number], Partial fill upon patient requestif the prescription is for a schedule II opioid ayo... Start Date: 08/08/21 Status: Ordered Problem List Condition Effective Dates Status Health Status Inform ant Alcoholism(Confirmed) Active COPD (chronic obstructive pu lmonary disease)(Confirmed) Active Concussion(Confirmed) Active Elevated liver enzymes(Confirmed) Active Marijuana use(Confirmed) Active Hyperlipidemia(Confirmed) 1 Active Lateral epicondylitis of rig ht elbow(Confirmed) Active Low back pain(Confirmed) Active Major depression(Confirmed) Active Fatty liver(Confirmed) Active Tobacco abuse(Confirmed) 2 Active 1given comprehesive chol diet handout 2counsel [id number] Vital Signs Most recent to oldest [Reference Range]: 1 2 Height 178 cm (08/08/21 12:59 PM) 178 cm (08/08/21 12:52 PM) Weight 77.0 kg (08/08/21 12:52 PM) Oxygen Saturation [94-100 %] 97 % (08/08/21 12:52 PM) Pulse Rate [55-90 bpm] 94 bpm *H* (08/08/21 12:52 PM) Body Mass Index [18.5-24.99] 24.3 (08/08/21 12:52 PM) Blood Pressure [90-138/55-84 mm Hg] 103/ 72mm Hg (08/08/21 12:59 PM) 143/75mm Hg *H* (08/08/21 12:52 PM) Mode of Delivery (Oxygen) Room air (08/08/21 12:52 PM) Blood pressure sites Arm, left (08/08/21 12:59 PM) Arm, left (08/08/21 12:52 PM) Weight Obtained Via Standing scale (08/08/21 12:52 PM) Social History Social History Type Response Smoking Status 10 or more cigarette s (1/2 pack or more)/day in last 30 days entered on: 04/05/18 Sex
--- OUTSIDE RECORDS SUMMARY | 2022-12-21 14:27 | XMS_ITS | Continuity of Care Document ---
Author Name Unknown Organization [facility] Eric lt Address [address] [place] [address]- Care Team Providers Care Ladle Cleaner Name Role Phone Rojelio Gallardo MD Primary Care Physician [phone] Encounter [facility] Date(s): 09/15/19 - 09/22/19 [facility] Adult [address] [place] [address]- [facility] Attending Physician: Rojelio Gallardo MD Allergies, Adverse Reactions, Alerts Substance Reaction Severity Status Other Environmental Allergy POLLEN Active Immunizations Given and Recorded Vaccine Date Status Refusal Reason tetanus/diphtheria/pertussis, acel(Tdap) 03/24/19 Given tetanus/diphtheria/pertussis, acel(Tdap) 03/22/09 Given influenza virus vaccine, inactivated 03/24/19 Give n influenza virus vaccine, inactivated 1 04/05/18 Gi purvi Tetanus Toxoid Vaccine (oldterm) 05/04/99 Given 1Result Comment: [04/05/2018] [facility] [id number] Medications albuterol CFC free 90 mcg/inh inhalation aerosol See Instructions, # 18 Unknown, Refills 5 Tot. Refills 5, TAKE 2 PUFFS EVERY 6 HOURS, [facility]/pharmacy #[id number] Start Date: 11/12/18 Status: Ordered Cannabis (Schedule I Substance) 0 Refills, Maintenance, 04/05/18 8:17:12 EST Start Date: 04/05/18 Status: Ordered escitalopram 10 mg oral tablet 1 tablet = 10 mg, By Mouth, Daily, # 30 tablet, 5 Refills, Maintenance, 09/15/19 10:09:00 EDT, Tablet, [facility]/pharmacy #[id number], 178.8, cm, 09/15/19 9:00:00 EDT, Height Start Date: 09/15/19 Status: Ordered folic acid 1 mg oral tablet 1 mg, 1, tablet, By Mouth, Daily, # 30 tablet, Refills 5, Tot. Refills 5, Maintenance, 11/19/18 13:19:18 EDT, Route to Pharmacy Electronically, [id number], [facility]/pharmacy #[id number] Start Date: 11/19/18 Status: Ordered multivitamin Multiple Vitamins oral tablet 1 tablet, By Mouth, Daily, # 30 tablet, 5 Refills, Maintenance, 11/19/18 13:17:51 EDT, Tablet, 1 tablet By Mouth Daily Start Date: 11/19/18 Status: Ordered thiamine 100 mg oral tablet 100 mg, 1, tablet, By Mouth, Daily, # 30 tablet, Refills 5, Tot. Refills 5, Maintenance, 11/19/18 13:18:27 EDT, Route to Pharmacy Electronically, [id number], [facility]/pharmacy #[id number] Start Date: 11/19/18 Status: Ordered Tylenol Caplet Extra Strength = 1,000 mg, By Mouth, Every 6 hours, 0 Refills, Maintenance, 04/05/18 8:17:29 EST Start Date: 04/05/18 Status: Ordered Problem List Condition Effective Dates Status Health Status Inform ant Alcoholism(Confirmed) Active COPD (chronic obstructive pu lmonary disease)(Confirmed) Active Elevated liver enzymes(Confirmed) Active Marijuana use(Confirmed) Active Hyperlipidemia(Confirmed) 1 Active Lateral epicondylitis of rig ht elbow(Confirmed) Active Tobacco abuse(Confirmed) 2 Active 1given comprehesive chol diet handout 2counsel [id number] Vital Signs Most recent to oldest [Reference Range]: 1 Height 178.8 cm (09/15/19 9:00 AM) Social History Social History Type Response Smoking Status 10 or more cigarette s (1/2 pack or more)/day in last 30 days entered on: 04/05/18 Sex
--- OUTSIDE RECORDS SUMMARY | 2022-12-21 14:27 | XMS_ITS | Continuity of Care Document ---
Author Name Unknown Organization [facility] Eric lt Address [address] [place] [address]- Care Team Providers Care Knife Blade Polisher Name Role Phone Paulina BOWER, Rojelio Glover Primary Care Physician [phone] [facility]counter [facility] Date(s): 10/07/22 - 11/06/22 [facility] Adult [address] [place] [address]- Allergies, Adverse Reactions, Alerts No Known Medication [...] Vaccine (oldterm) 05/04/99 Given 1Result Comment: [04/05/2018] [facility] [id number] Medications acetaminophen 325 mg oral tablet 975 mg, By Mouth, Once, PRN, Refills 0, Maintenance, Pain , Moderate, 09/05/22 16:50:00 EDT, Partial fill upon patient request if the prescription is for a schedule II opioid drug. Start Date: 09/05/22 Status: Ordered Albuterol (Eqv-ProAir HFA) 90 mcg/inh inhalation aerosol 2 puffs, Inhalation, Every 6 hours, # 1 each, 1 Refills, Maintenance, 04/05/21 10:17:00 EST, [facility]/pharmacy #[id number], Partial fill upon patient request if the prescription is for a schedule II opioid drug., 2 puffs Inhalation Every 6 hours, 178, cm, ... Start Date: 04/05/21 Status: Ordered apixaban 5 mg oral tablet 1 tablet = 5 mg, By Mouth, 2 times a day, # 60 tablet, 2 Refills, Maintenance, 10/24/22 14:55:00 EDT, Tablet, [facility]/pharmacy #[id number], Partial fill upon patient request if the prescription is for a schedule II opioid drug., 180, cm, 10/03/22 9:16:00 EDT, H... Start Date: 10/24/22 Status: Ordered betamethasone-clotrimazole 0.05%-1% topical cream See Instructions, Apply gentle coat apply twice daily and then wash hands, # 45 Gm, 0 Refills, Maintenance, 08/05/22 10:04:00 EDT, [facility]/pharmacy #[id number], Partial fill upon patient request if [...] Mouth, Daily, # 90 tablet, 1 Refills, [facility], 90, TAKE 1 TABLET BY MOUTH EVERY DAY, 178, cm, 08/08/21 12:59:00 EDT, Height Start Date: 10/17/21 Status: Ordered Eliquis Starter Pack 5 mg oral tablet 2 tablet = 10 mg, By Mouth, 2 times a day, followed by 1 tablet by mouth twice daily for 23 days, #74 tablet, 0 Refills, Maintenance, 08/06/22 5:55:00 EDT, [facility]/pharmacy #[id number], Partial fill upon patient request if the prescription is for a schedule II... Start Date: 08/06/22 Stop Date: 08/13/22 Status: Ordered escitalopram 20 mg oral tablet 1 tablet, By Mouth, Daily, # 90 tablet, 1 Refills, Maintenance, 07/11/22 13:19:00 EST, [facility], 178, cm, 11/29/21 11:03:00 EDT, Height Start Date: 07/11/22 Status: Ordered Flonase 50 mcg/inh nasal spray 2 sprays, Nares, Both, Daily in AM, # 15.8 mL, 5 Refills, Maintenance, 10/29/21 8:58:00 EDT, [place],[facility]/pharmacy #0693, Partial fill upon patient request if the prescription is for a schedule II opioid drug., 2 sprays Nares, Both Daily in AM, 178, cm,... Start Date: 10/29/21 Status: Ordered folic acid 1 mg oral tablet 1, tablet, By Mouth, Daily, # 90 tablet, Refills 1, Maintenance, 09/10/22 11:41:00 EDT, Route to Pharmacy Electronically, [facility], 180, cm, 09/05/22 11:52:00 EDT, Height, 91.9, [...] 1 Refills, Maintenance, 08/05/22 10:01:00 EDT, Tablet, [facility]/pharmacy #[id number], Partial fill upon patient request if the prescription is for a schedule II opioid drug., 178, cm, 08/05/22 9:49:00 ED... Start Date: 08/05/22 Status: Ordered naltrexone 50 mg oral tablet 1 tablet = 50 mg, By Mouth, Daily, # 30 tablet, 5 Refills, Maintenance, 10/29/21 8:57:00 EDT, Tablet, [facility]/pharmacy #[id number], Partial fill upon patient request if the prescription is for a schedule II opioid drug., 178, cm, 10/29/21 8:40:00 EDT, Height Start Date: 10/29/21 Status: Ordered oxyCODONE 5 mg oral tablet 5 mg, By Mouth, Every 6 hours, PRN, # 10 tablet, Refills 0, Tot. Refills 0, Soft Stop, Pain , Moderate, 09/05/22 16:56:00 EDT, Route to Pharmacy Electronically, [facility], Partial fillupon patient request if the prescription is for a s... Start Date: 09/05/22 Stop Date: 09/07/22 Status: Ordered Symbicort 160mcg/4.5mcg Inhaler 2, puffs, Inhalation, 2 times a day, # 1 each, Refills 5, Tot. Refills 5, Maintenance, 09/18/20 8:45:00 EDT, Aerosol, Route to Pharmacy Electronically, [id number], [facility]/pharmacy #[id number], 178, cm, 09/18/20 8:15:00 EDT, Height, [...] Active 1given comprehesive chol diet handout 2counsel [id number] Social History Social History Type Response Smoking Status 10 or more cigarette s (1/2 pack or more)/day in last 30 days; Interested in cessation: No; Patient wants NRT during admission No entered on: 10/03/22 Sex Patient Care team information Care Team Personnel Name: Rojelio Gallardo MD Position: S Physician - Primary Care Member Role: PCP Address: Address: [address] [place] [address]- Care Team Related Persons Name: LIZETTE RAMIREZ Address: home [address] [place] [address] Name: HAILEY JOHNSON Address: [place] [address]
--- OUTSIDE RECORDS SUMMARY | 2022-12-21 14:27 | XMS_ITS | Continuity of Care Document ---
Author Name Unknown Organization [facility] Eric lt Address [address] [place] [address]- Care Team Providers Care Cloth Bolt Bander Name Role Phone Rojelio Gallardo MD Primary Care Physician [phone] [place] [facility] [place]21 - 12/06/21 [facility] Adult [address] [place] [address]- Attending Physician: Rojelio Gallardo MD Allergies, Adverse [...] 05/04/99 Given 1Result Comment: [04/05/2018] [facility] [id number] Medications Albuterol (Eqv-ProAir HFA) 90 mcg/inh inhalation aerosol 2 puffs, Inhalation, Every 6 hours, # 1 each, 1 Refills, Maintenance, 04/05/21 10:17:00 EST, [facility]/pharmacy #[id number], Partial fill upon patient request if the prescription is for a schedule II opioid drug., 2 puffs Inhalation Every 6 hours, 178, cm, 04/05/... Start Date: 04/05/21 Status: Ordered Cannabis (Schedule I Substance) 0 Refills, Maintenance, 04/05/18 8:17:12 EST Start Date: 04/05/18 Status: Ordered Daily Meg oral tablet 1 tablet, By Mouth, Daily, # 90 tablet, 1 Refills, [facility] STORE [facility], 90, TAKE 1 TABLET BY MOUTH EVERY DAY, 178, cm, 08/08/21 12:59:00 EDT, Height Start Date: 10/17/21 Status: Ordered escitalopram 20 mg oral tablet 1 tablet = 20 mg, By Mouth, Daily, # 90 tablet, 1 Refills, Maintenance, 08/19/21 13:44:00 EDT, [facility]/pharmacy #[id number], Partial fill upon patient request if the prescription is for a schedule II opioid drug., 178, cm, 08/08/21 12:59:00 EDT, Height, 77, kg,... Start Date: 08/19/21 Status: Ordered Flonase 50 mcg/inh nasal spray 2 sprays, Nares, Both, Daily in AM, # 15.8 mL, 5 Refills, Maintenance, 10/29/21 8:58:00 EDT, [place],[facility]/pharmacy #[id number], Partial fill upon patient request if the prescription is for a schedule II opioid drug., 2 sprays Nares, Both Daily in AM, 178, cm,... Start Date: 10/29/21 Status: Ordered folic acid 1 mg oral tablet 1 mg, 1, tablet, By Mouth, Daily, # 90 tablet, Refills 1, Tot. Refills 1, Maintenance, 08/08/21 13:05:00 EDT, Route to Pharmacy Electronically, [facility]/pharmacy #[id number], Partial fill upon patient request [...] tablet, 2 Refills, Maintenance, 08/08/21 13:08:00 EDT, [facility]/pharmacy #[id number], Partial fill upon patient request if the prescription is for a schedule... Start Date: 08/08/21 Status: Ordered naltrexone 50 mg oral tablet 1 tablet = 50 mg, By Mouth, Daily, # 30 tablet, 5 Refills, Maintenance, 10/29/21 8:57:00 EDT, Tablet, [facility]/pharmacy #[id number], Partial fill upon patient request if the prescription is for a schedule II opioid drug., 178, cm, 10/29/21 8:40:00 EDT, Height Start Date: 10/29/21 Status: Ordered Symbicort 160mcg/4.5mcg Inhaler 2, puffs, Inhalation, 2 times a day, # 1 each, Refills 5, Tot. Refills 5, Maintenance, 09/18/20 8:45:00 EDT, Aerosol, Route to Pharmacy Electronically, [id number], [facility]/pharmacy #[id number], 178, cm, 09/18/20 8:15:00 EDT, Height, 77... Start Date: 09/18/20 Status: Ordered thiamine 100 mg oral tablet 100 mg, 1, tablet, By Mouth, Daily, # 90 tablet, Refills 1, Tot. Refills 1, Maintenance, 08/08/21 13:05:00 EDT, Route to Pharmacy Electronically, [id number], Partial fill upon patient requestif the [...] Active 1given comprehesive chol diet handout 2counsel [id number] Vital Signs Most recent to oldest [Reference Range]: 1 2 Height 178 cm (11/29/21 11:03 AM) 178 cm (11/29/21 10:50 AM) Weight 84.2 kg (11/29/21 10:50 AM) Oxygen Saturation [94-100 %] 97 % (11/29/21 10:50 AM) Pulse Rate [55-90 bpm] 79 bpm (11/29/21 10:50 AM) Body Mass Index [18.5-24.99] 26.57 *H* (11/29/21 10:50 AM) Blood Pressure [90-138/55-84 mm Hg] 100/ 79mm Hg (11/29/21 11:03 AM) 106/86mm Hg (11/29/21 10:50 AM) Temperature [96.8-100.4 DegF] 98.4 DegF (11/29/21 10:50 AM) Mode of Delivery (Oxygen) Room air (11/29/21 10:50 AM) Blood pressure sites Arm, left (11/29/21 11:03 AM) Arm, right (11/29/21 10:50 AM) Temperature Route Oral (11/29/21 10:50 AM) Weight Obtained Via Standing scale (11/29/21 10:50 AM) Social History Social History Type Response Smoking Status 10 or more cigarette s (1/2 pack or more)/day in last 30 days entered on: 04/05/18 Sex
--- OUTSIDE RECORDS SUMMARY | 2022-12-21 14:27 | XMS_ITS | Continuity of Care Document ---
Author Name Unknown Organization [facility] Jonathan Eric lt Address [address] [place] [address]- Care Team Providers Care Transfer And Pumphouse Operator Chief Name Role Phone Rojelio Gallardo MD Primary Care Physician [place] [facility] [place] 07/10/21 - 07/17/21 [facility] Adult [address] [place] [address]- Attending Physician: Rojelio Gallardo MD Allergies, Adverse [...] Vaccine (oldterm) 05/04/99 Given 1Result Comment: [04/05/2018] [facility] [id number] Medications Albuterol (Eqv-ProAir HFA) 90 mcg/inh inhalation aerosol 2 puffs, Inhalation, Every 6 hours, # 1 each, 1 Refills, Maintenance, 04/05/21 10:17:00 EST, [facility]/pharmacy #[id number], Partial fill upon patient request if the [...] tablet, 0 Refills, Maintenance, 07/17/21 10:03:00 EDT, [id number], Partial fill upon patient request if the prescription is for a schedule II opioid drug., 178, cm, 07/17/21 9:57:00 EDT, Height, 77, kg,... Start Date: 07/17/21 Status: Ordered folic acid 1 mg oral tablet 1 mg, 1, tablet, By Mouth, Daily, # 30 tablet, Refills 5, Tot. Refills 5, Maintenance, 03/18/21 11:00:00 EST, Route to Pharmacy Electronically, [id number], Partial fill upon patient request if the prescription is for a schedule II opioid drug.... Start Date: 03/18/21 Status: Ordered folic acid 1 mg oral tablet 1 mg, 1, tablet, By Mouth, Daily, # 30 tablet, Refills 5, Tot. Refills 5, Maintenance, 09/18/20 8:40:00 EDT, Route to Pharmacy Electronically, [id number], Partial fill upon patient request ifthe prescription is for a schedule II opioid drug.,... Start Date: 09/18/20 Status: Ordered Ibuprofen Refills 0, Maintenance, 09/11/20 8:12:00 EDT, Partial fill upon patient request if the prescriptionis for a schedule II opioid drug. Start Date: 09/11/20 Status: Ordered multivitamin Multiple Vitamins oral tablet 1 tablet, By Mouth, Daily, # 90 tablet, 1 Refills, Maintenance, 04/05/21 10:18:00 EST, Tablet, [id number], Partial fill upon patient request if the prescription is for a schedule II opioid drug., 1 tablet By Mouth Daily, 178, cm, 04/05/21 10:0... Start Date: 04/05/21 Status: Ordered naltrexone 50 mg oral tablet 1 tablet = 50 mg, By Mouth, Daily, # 30 tablet, 5 Refills, Maintenance, 05/17/21 8:18:00 EST, Tablet, [id number], Partial fill upon patient request if the prescription is for a schedule II opioid drug., 178, cm, 05/17/21 7:39:00 EST, Height, 7... Start Date: 05/17/21 Status: Ordered SLEEP AID SLEEP AID, Refills 0, Maintenance, 03/18/21 10:48:00 EST, Supply Start Date: 03/18/21 Status: Ordered Symbicort 160mcg/4.5mcg Inhaler 2, puffs, Inhalation, 2 times a day, # 1 each, Refills 5, Tot. Refills 5, Maintenance, 09/18/20 8:45:00 EDT, Aerosol, Route to Pharmacy Electronically, [id number], [facility]/pharmacy #[id number], 178, cm, 09/18/20 8:15:00 EDT, Height, 77... Start Date: 09/18/20 Status: Ordered thiamine 100 mg oral tablet 100 mg, 1, tablet, By Mouth, Daily, # 30 tablet, Refills 5, Tot. Refills 5, Maintenance, 03/18/21 11:01:00 EST, Route to Pharmacy Electronically, [facility]/pharmacy #[id number], Partial fill upon patient requestif the prescription is for a schedule II opioid ayo... Start Date: 03/18/21 Status: Ordered thiamine 100 mg oral tablet 100 mg, 1, tablet, By Mouth, Daily, # 30 tablet, Refills 5, Tot. Refills 5, Maintenance, 09/18/20 8:40:00 EDT, Route to Pharmacy Electronically, [facility]/pharmacy #[id number], Partial fill upon patient request if the prescription is for a schedule II opioid drug... Start Date: 09/18/20 Status: Ordered Vitamin B1 Daily, 0 Refills, Maintenance, 05/17/21 7:45:00 EST, Partial fill upon patient request if the prescription is for a schedule II opioid drug. Start Date: 05/17/21 Status: Ordered Problem List Condition Effective Dates Status Health Status Inform ant Alcoholism(Confirmed) Active COPD (chronic obstructive pu lmonary disease)(Confirmed) Active Concussion(Confirmed) Active Elevated liver enzymes(Confirmed) Active Marijuana use(Confirmed) Active Hyperlipidemia(Confirmed) 1 Active Lateral epicondylitis of rig ht elbow(Confirmed) Active Low back pain(Confirmed) Active Major depression(Confirmed) Active Fatty liver(Confirmed) Active Tobacco abuse(Confirmed) 2 Active 1given comprehesive chol diet handout 2counsel [id number] Social History Social History Type Response Smoking Status 10 or more cigarette s (1/2 pack or more)/day in last 30 days entered on: 04/05/18 Sex
--- OUTSIDE RECORDS SUMMARY | 2022-12-21 14:27 | XMS_ITS | Continuity of Care Document ---
Author Name Unknown Organization [facility] [place] Eric lt Address [address] [place] [address]- Care Team Providers Care Director Global Intelligence Name Role Phone Rojelio Gallardo MD Primary Care Physician Encounter [facility] [place] Date(s): 10/22/20 - 10/29/20 [facility] [place] Adult [address] [place] [address]- Attending Physician: Rojelio Gallardo MD Allergies, Adverse [...] Vaccine (oldterm) 05/04/99 Given 1Result Comment: [04/05/2018] [facility] [id number] Medications Albuterol (Eqv-ProAir HFA) 90 mcg/inh inhalation aerosol 2 puffs, Inhalation, Every 6 hours, # 1 each, 5 Refills, Maintenance, 09/18/20 8:44:00 EDT, [facility]/pharmacy #[id number], Partial fill upon patient request if the prescription is for a schedule II opioid drug., 2 puffs Inhalation Every 6 hours, 178, cm, ... Start Date: 09/18/20 Status: Ordered Cannabis (Schedule I Substance) 0 Refills, Maintenance, 04/05/18 8:17:12 EST Start Date: 04/05/18 Status: Ordered folic acid 1 mg oral tablet 1 mg, 1, tablet, By Mouth, Daily, # 30 tablet, Refills 5, Tot. Refills 5, Maintenance, 09/18/20 8:40:00 EDT, Route to Pharmacy Electronically, [facility]/pharmacy #[id number], Partial fill upon patient request ifthe prescription is for a schedule II opioid drug.,... Start Date: 09/18/20 Status: Ordered Ibuprofen Refills 0, Maintenance, 09/11/20 8:12:00 EDT, Partial fill upon patient request if the prescriptionis for a schedule II opioid drug. Start Date: 09/11/20 Status: Ordered Symbicort 160mcg/4.5mcg Inhaler 2, puffs, Inhalation, 2 times a day, # 1 each, Refills 5, Tot. Refills 5, Maintenance, 09/18/20 8:45:00 EDT, Aerosol, Route to Pharmacy Electronically, [id number], [facility]/pharmacy #[id number], 178, cm, 09/18/20 8:15:00 EDT, Height, 77... Start Date: 09/18/20 Status: Ordered thiamine 100 mg oral tablet 100 mg, 1, tablet, By Mouth, Daily, # 30 tablet, Refills 5, Tot. Refills 5, Maintenance, 09/18/20 8:40:00 EDT, Route to Pharmacy Electronically, [facility]/pharmacy #[id number], Partial fill upon patient request if the prescription is for a schedule II opioid drug... Start Date: 09/18/20 Status: Ordered Problem List Condition Effective Dates Status Health Status Inform ant Alcoholism(Confirmed) Active COPD (chronic obstructive pu lmonary disease)(Confirmed) Active Concussion(Confirmed) Active Elevated liver enzymes(Confirmed) Active Marijuana use(Confirmed) Active Hyperlipidemia(Confirmed) 1 Active Lateral epicondylitis of rig ht elbow(Confirmed) Active Low back pain(Confirmed) Active Fatty liver(Confirmed) Active Tobacco abuse(Confirmed) 2 Active 1given comprehesive chol diet handout 2counsel [id number] Vital Signs Most recent to oldest [Reference Range]: 1 Height 178 cm (10/22/20 9:41 AM) Weight 76.6 kg (10/22/20 9:41 AM) Oxygen Saturation [94-100 %] 98 % (10/22/20 9:41 AM) Pulse Rate [55-90 bpm] 90 bpm (10/22/20 9:41 AM) Body Mass Index [18.5-24.99] 24.18 (10/22/20 9:41 AM) Blood Pressure [90-138/55-84 mm Hg] 112/ 72mm Hg (10/22/20 9:41 AM) Respiratory Rate [16-30 br/min] 16 br/mi n (10/22/20 9:41 AM) Temperature [96.8-100.4 DegF] 98.6 DegF (10/22/20 9:41 AM) Mode of Delivery (Oxygen) Room air (10/22/20 9:41 AM) Blood pressure sites Arm, right (10/22/20 9:41 AM) Temperature Route Oral (10/22/20 9:41 AM) Weight Obtained Via Standing scale (10/22/20 9:41 AM) Social History Social History Type Response Smoking Status 10 or more cigarette s (1/2 pack or more)/day in last 30 days entered on: 04/05/18 Sex
--- OUTSIDE RECORDS SUMMARY | 2022-12-21 14:27 | XMS_ITS | Continuity of Care Document ---
Author Name Unknown Organization [facility] Address [address] [place] [address] ad[address], [address] [place] [address]- Care Team Providers Care Food Equipment Service Technician Name Role Phone Paulina BOWER, Rojelio Glover Primary Care Physician Encounter [facility] Date(s): 10/01/22 - 10/31/22 [facility] [address] [place] [address], [address] [place], [place] [address] Attending Physician: Jose Samuels Admitting Physician: Admtr, Ar8 Referring Physician: Admtr, Ar8 Allergies, Adverse Reactions, Alerts No Known Medication [...] Vaccine (oldterm) 05/04/99 Given 1Result Comment: [04/05/2018] [facility] [id number] Medications acetaminophen 325 mg oral tablet 975 mg, By Mouth, Once, PRN, Refills 0, Maintenance, Pain , Moderate, 09/05/22 16:50:00 EDT, Partial fill upon patient request if the prescription is for a schedule II opioid drug. Start Date: 09/05/22 Status: Ordered Albuterol (Eqv-ProAir HFA) 90 mcg/inh inhalation aerosol 2 puffs, Inhalation, Every 6 hours, # 1 each, 1 Refills, Maintenance, 04/05/21 10:17:00 EST, [facility]/pharmacy #[id number], Partial fill upon patient request if the prescription is for a schedule II opioid drug., 2 puffs Inhalation Every 6 hours, 178, cm, ... Start Date: 04/05/21 Status: Ordered apixaban 5 mg oral tablet 1 tablet = 5 mg, By Mouth, 2 times a day, # 60 tablet, 2 Refills, Maintenance, 10/24/22 14:55:00 EDT, Tablet, [facility]/pharmacy #[id number], Partial fill upon patient request if the prescription is for a schedule II opioid drug., 180, cm, 10/03/22 9:16:00 EDT, H... Start Date: 10/24/22 Status: Ordered betamethasone-clotrimazole 0.05%-1% topical cream See Instructions, Apply gentle coat apply twice daily and then wash hands, # 45 Gm, 0 Refills, Maintenance, 08/05/22 10:04:00 EDT, [facility]/pharmacy #[id number], Partial fill upon patient request if [...] Mouth, Daily, # 90 tablet, 1 Refills, [facility], 90, TAKE 1 TABLET BY MOUTH EVERY [...] Refills, Maintenance, 07/11/22 13:19:00 EST, [facility], 178, cm, 11/29/21 11:03:00 EDT, Height Start Date: 07/11/22 Status: Ordered Flonase 50 mcg/inh nasal spray 2 sprays, Nares, Both, Daily in AM, # 15.8 mL, 5 Refills, Maintenance, 10/29/21 8:58:00 EDT, [id number], Partial fill upon patient request if the prescription is for a schedule II opioid drug., 2 sprays Nares, Both Daily in AM, 178, cm,... Start Date: 10/29/21 Status: Ordered folic acid 1 mg oral tablet 1, tablet, By Mouth, Daily, # 90 tablet, Refills 1, Maintenance, 09/10/22 11:41:00 EDT, Route to Pharmacy Electronically, [facility], 180, cm, 09/05/22 11:52:00 EDT, Height, 91.9, [...] 5 Refills, Maintenance, 10/29/21 8:57:00 EDT, Tablet, [facility]/pharmacy #[id number], Partial fill upon patient request if the prescription is for a schedule II opioid drug., 178, cm, 10/29/21 8:40:00 EDT, Height Start Date: 10/29/21 Status: Ordered oxyCODONE 5 mg oral tablet 5 mg, By Mouth, Every 6 hours, PRN, # 10 tablet, Refills 0, Tot. Refills 0, Soft Stop, Pain , Moderate, 09/05/22 16:56:00 EDT, Route to Pharmacy Electronically, [facility], Partial fillupon patient request if the prescription is for a s... Start Date: 09/05/22 Stop Date: 09/07/22 Status: Ordered Symbicort 160mcg/4.5mcg Inhaler 2, puffs, Inhalation, 2 times a day, # 1 each, Refills 5, Tot. Refills 5, Maintenance, 09/18/20 8:45:00 EDT, Aerosol, Route to Pharmacy Electronically, [id number], [facility]/pharmacy #[id number], 178, cm, 09/18/20 8:15:00 EDT, Height, [...] Active 1given comprehesive chol diet handout 2counsel [id number] Social History Social History Type Response Smoking Status 10 or more cigarette s (1/2 pack or more)/day in last 30 days; Interested in cessation: No; Patient wants NRT during admission No entered on: 10/03/22 Sex Patient Care team information Care Team Personnel Name: Rojelio Gallardo MD Position: S Physician - Primary Care Member Role: PCP Address: Address: [address] [place] [address]- [place] Care Team Related Persons Name: LIZETTE RAMIREZ Address: home [address] [place] [address] Name: HAILEY JOHNSON Address: [place] [address]
--- OUTSIDE RECORDS SUMMARY | 2022-12-21 14:28 | XMS_ITS | Continuity of Care Document ---
Author Name Unknown Organization [facility] Address [address] [address]- Care Team Providers Care Internet Merchant Name Role Phone Paulina BOWER, Rojelio Glover Primary Care Physician Encounter [facility] [place] Date(s): 08/15/22 - 09/14/22 [facility] [address] [address] Allergies, Adverse Reactions, Alerts No Known Medication [...] Vaccine (oldterm) 05/04/99 Given 1Result Comment: [04/05/2018] [facility] [id number] Medications acetaminophen 325 mg oral tablet 975 mg, By Mouth, Once, PRN, Refills 0, Maintenance, Pain , Moderate, 09/05/22 16:50:00 EDT, Partial fill upon patient request if the prescription is for a schedule II opioid drug. Start Date: 09/05/22 Status: Ordered Albuterol (Eqv-ProAir HFA) 90 mcg/inh inhalation aerosol 2 puffs, Inhalation, Every 6 hours, # 1 each, 1 Refills, Maintenance, 04/05/21 10:17:00 EST, [facility]/pharmacy #[id number], Partial fill upon patient request if the [...] # 90 tablet, 1 Refills, [facility], 90, TAKE 1 TABLET BY MOUTH EVERY [...] Refills, Maintenance, 07/11/22 13:19:00 EST, [facility], 178, cm, 11/29/21 11:03:00 EDT, Height Start Date: 07/11/22 Status: Ordered Flonase 50 mcg/inh nasal spray 2 sprays, Nares, Both, Daily in AM, # 15.8 mL, 5 Refills, Maintenance, 10/29/21 8:58:00 EDT, [id number], Partial fill upon patient request if the prescription is for a schedule II opioid drug., 2 sprays Nares, Both Daily in AM, 178, cm,... Start Date: 10/29/21 Status: Ordered folic acid 1 mg oral tablet 1, tablet, By Mouth, Daily, # 90 tablet, Refills 1, Maintenance, 09/10/22 11:41:00 EDT, Route to Pharmacy Electronically, [facility] ST[facility], 180, cm, 09/05/22 11:52:00 EDT, Height, 91.9, [...] 1 Refills, Maintenance, 08/05/22 10:01:00 EDT, Tablet, [facility]/pharmacy #[id number], Partial fill upon patient request if the prescription is for a schedule II opioid drug., 178, cm, 08/05/22 9:49:00 ED... Start Date: 08/05/22 Status: Ordered naltrexone 50 mg oral tablet 1 tablet = 50 mg, By Mouth, Daily, # 30 tablet, 5 Refills, Maintenance, 10/29/21 8:57:00 EDT, Tablet, [facility]/pharmacy #[id number], Partial fill upon patient request if the prescription is for a schedule II opioid drug., 178, cm, 10/29/21 8:40:00 EDT, Height Start Date: 10/29/21 Status: Ordered oxyCODONE 5 mg oral tablet 5 mg, By Mouth, Every 6 hours, PRN, # 10 tablet, Refills 0, Tot. Refills 0, Soft Stop, Pain , Moderate, 09/05/22 16:56:00 EDT, Route to Pharmacy Electronically, [facility], Partial fillupon patient request if the prescription is for a s... Start Date: 09/05/22 Stop Date: 09/07/22 Status: Ordered Symbicort 160mcg/4.5mcg Inhaler 2, puffs, Inhalation, 2 times a day, # 1 each, Refills 5, Tot. Refills 5, Maintenance, 09/18/20 8:45:00 EDT, Aerosol, Route to Pharmacy Electronically, [id number], [facility]/pharmacy #[id number], 178, cm, 09/18/20 8:15:00 EDT, [...] Active 1given comprehesive chol diet handout 2counsel [id number] Social History Social History Type Response Smoking Status 10 or more cigarette s (1/2 pack or more)/day in last 30 days entered on: 04/05/18 Sex Patient Care team information Care Team Personnel Name: Paulina BOWER, Rojelio Glover Position: [facility] Primary Care Physician Member Role: PCP Address: Address: [address] [place] [address] [place] [address]- Care Team Related Persons Name: LIZETTE RAMIREZ Address: home [address] [place] [id number] Name: HAILEY JOHNSON Address: [place] [address]
--- OUTSIDE RECORDS SUMMARY | 2022-12-21 14:28 | XMS_ITS | Continuity of Care Document ---
Author Name Unknown Organization [facility] Eric lt Address [address] [place] [address]- Care Team Providers Care Design Eng Name Role Phone Rojelio Gallardo MD Primary Care Physician [place] [facility] [place] 03/[place]/22 [facility] [address] [place] [address]- Attending Physician: Rojelio Gallardo MD Allergies, Adverse [...] (oldterm) 05/04/99 Given 1Result Comment: [04/05/2018] [facility] [id number] Medications Albuterol (Eqv-ProAir HFA) 90 mcg/inh inhalation aerosol 2 puffs, Inhalation, Every 6 hours, # 1 each, 1 Refills, Maintenance, 04/05/21 10:17:00 EST, [facility]/pharmacy #[id number], Partial fill upon patient request if the prescription is for a schedule II opioid drug., 2 puffs Inhalation Every 6 hours, 178, cm, 04/05/... Start Date: 04/05/21 Status: Ordered Cannabis (Schedule I Substance) 0 Refills, Maintenance, 04/05/18 8:17:12 EST Start Date: 04/05/18 Status: Ordered Daily Meg oral tablet 1 tablet, By Mouth, Daily, # 90 tablet, 1 Refills, [facility] STORE [id number], 90, TAKE 1 TABLET BY MOUTH EVERY DAY, 178, cm, 08/08/21 12:59:00 EDT, Height Start Date: 10/17/21 Status: Ordered escitalopram 20 mg oral tablet 1 tablet = 20 mg, By Mouth, Daily, # 90 tablet, 1 Refills, Maintenance, 08/19/21 13:44:00 EDT, [facility]/pharmacy #[id number], Partial fill upon patient request if the prescription is for a schedule II opioid drug., 178, cm, 08/08/21 12:59:00 EDT, Height, 77, kg,... Start Date: 08/19/21 Status: Ordered Flonase 50 mcg/inh nasal spray 2 sprays, Nares, Both, Daily in AM, # 15.8 mL, 5 Refills, Maintenance, 10/29/21 8:58:00 EDT, [place],[facility]/pharmacy #[id number], Partial fill upon patient request if the prescription is for a schedule II opioid drug., 2 sprays Nares, Both Daily in AM, 178, cm,... Start Date: 10/29/21 Status: Ordered folic acid 1 mg oral tablet 1 mg, 1, tablet, By Mouth, Daily, # 90 tablet, Refills 1, Tot. Refills 1, Maintenance, 08/08/21 13:05:00 EDT, Route to Pharmacy Electronically, [facility]/pharmacy #[id number], Partial fill upon patient [...] tablet, 2 Refills, Maintenance, 08/08/21 13:08:00 EDT, [facility]/pharmacy #[id number], Partial fill upon patient request if the prescription is for a schedule... Start Date: 08/08/21 Status: Ordered naltrexone 50 mg oral tablet 1 tablet = 50 mg, By Mouth, Daily, # 30 tablet, 5 Refills, Maintenance, 10/29/21 8:57:00 EDT, Tablet, [facility]/pharmacy #[id number], Partial fill upon patient request if the prescription is for a schedule II opioid drug., 178, cm, 10/29/21 8:40:00 EDT, Height Start Date: 10/29/21 Status: Ordered nicotine 21 mg/24 hr transdermal film, extended release See Instructions, Apply one patch to skin in morning. Remove at bedtime., # 30 patch, 1 Refills, Maintenance, 03/06/22 16:58:00 EDT, [place], [place] - [id number], Partial fill upon patient request if the prescription is for a schedul... Start Date: 03/06/22 Status: Ordered Symbicort 160mcg/4.5mcg Inhaler 2, puffs, Inhalation, 2 times a day, # 1 each, Refills 5, Tot. Refills 5, Maintenance, 09/18/20 8:45:00 EDT, Aerosol, Route to Pharmacy Electronically, [id number], [facility]/pharmacy #[id number], 178, cm, 09/18/20 8:15:00 EDT, Height, 77... Start Date: 09/18/20 Status: Ordered thiamine 100 mg oral tablet 100 mg, 1, tablet, By Mouth, Daily, # 90 tablet, Refills 3, Tot. Refills 3, Maintenance, 03/06/22 16:57:00 EDT, Route to Pharmacy Electronically, [place], [place] - [id number], Partial fill upon patient request if the prescription is... Start Date: 03/06/22 Status: Ordered Problem List Condition Confirmation Course Effective Dates Status H ealth Status Informant Alcoholism Confirmed Active COPD (chronic obstructive pulmonary disease) Confirmed Active Concussion Confirmed Active Elevated liver enzymes Confirmed Active Marijuana use Confirmed Active Hyperlipidemia 1 Confirmed Active Lateral epicondylitis of right elbow Confirmed Active Low back pain Confirmed Active Major depression Confirmed Active Fatty liver Confirmed Active Tobacco abuse 2 Confirmed Active 1given comprehesive chol diet handout 2counsel [id number] Social History Social History Type Response Smoking Status 10 or more cigarette s (1/2 pack or more)/day in last 30 days entered on: 04/05/18 Sex Patient Care team information Personnel Name: Paulina BOWER, Rojelio Glover Address: Address: [address] [place] [id number]
--- OUTSIDE RECORDS SUMMARY | 2022-12-21 14:28 | XMS_ITS | Continuity of Care Document ---
Author Name Unknown Organization [facility] Address [address] [place] [address]- Care Team Providers Care Retail Team Member Name Role Phone Paulina BOWER, Rojelio Glover Primary Care Physician [phone] Encounter [facility] [place] Date(s): 09/17/22 - 12/03/22 [facility] [address] [place] [id number] Discharge Disposition: A-D/C Home Attending Physician: Luis BOWER, Kevin Carr Admitting Physician: Sandip BOWER, Mishel Referring Physician: Mallory Cevallos MD Allergies, Adverse Reactions, Alerts No Known [...] Given 1Result Comment: [04/05/2018] [facility] [id number] Medications acetaminophen 325 mg oral tablet 975 [...] Mouth, Daily, # 90 tablet, 1 Refills, [facility] 22443, 90, TAKE 1 TABLET BY MOUTH EVERY DAY, 178, cm, 08/08/21 12:59:00 EDT, Height Start Date: 10/17/21 Status: Ordered dexamethasone 4 mg oral tablet 1 tablet = 4 mg, By Mouth, 3 times a day, for 14 days, to be tapered by radiation oncology, # 42 tablet, 0 Refills, Acute 12/16/22 17:18:00 EDT, 12/02/22 17:18:00 EDT, Tablet, [facility]/pharmacy #[id number], Partial fill upon patient request if the prescription i... Start Date: 12/02/22 Stop Date: 12/16/22 Status: Ordered famotidine 20 mg oral tablet 20 mg, 1, tablet, By Mouth, 2 times a day, # 28 tablet, Refills 0, Tot. Refills 0, Maintenance, 12/02/22 17:19:00 EDT, Route to Pharmacy Electronically, [facility]/pharmacy #[id number], Partial fill upon patient request if the prescription is for a schedule II opi... Start Date: 12/02/22 Stop Date: 12/16/22 Status: Ordered Flonase 50 mcg/inh nasal spray 2 sprays, Nares, Both, Daily in AM, # 15.8 mL, 5 Refills, Maintenance, 10/29/21 8:58:00 EDT, [place],[facility]/pharmacy #[id number], Partial fill upon patient request if the prescription is for a schedule II opioid drug., 2 sprays Nares, Both Daily in AM, 178, cm,... Start Date: 10/29/21 Status: Ordered folic acid 1 mg oral tablet 1, tablet, By Mouth, Daily, # 90 tablet, Refills 1, Maintenance, 09/10/22 11:41:00 EDT, Route to Pharmacy Electronically, [facility] [id number], 180, cm, 09/05/22 11:52:00 EDT, Height, 91.9, kg, 09/05/22 11:52:00 EDT, Dry Weight Start Date: 09/10/22 Status: Ordered levETIRAcetam 500 mg oral tablet 1 tablet = 500 mg, By Mouth, 2 times a day, # 60 tablet, 0 Refills, Maintenance, 12/02/22 17:21:00 EDT, Tablet, [facility]/pharmacy #[id number], Partial fill upon patient request if the prescription is for a schedule II opioid drug., 180, cm, 12/02/22 11:34:00 EDT... Start Date: 12/02/22 Stop Date: 01/01/23 Status: Ordered mirtazapine 30 mg oral tablet 1 tablet = 30 mg, By Mouth, Daily at bedtime, # 90 tablet, 1 Refills, Maintenance, 08/05/22 10:01:00 EDT, Tablet, [facility]/pharmacy #[id number], Partial fill upon patient request if the prescription is for a schedule II opioid drug., 178, cm, 08/05/22 9:49:00 ED... Start Date: 08/05/22 Status: Ordered naltrexone 50 mg oral tablet 1 tablet = 50 mg, By Mouth, Daily, # 30 tablet, 5 Refills, Maintenance, 12/02/22 17:18:00 EDT, Tablet, [facility]/pharmacy #[id number], Partial fill upon patient request if the prescription is for a schedule II opioid drug., 180, cm, 12/02/22 11:34:00 EDT, Height,... Start Date: 12/02/22 Status: Ordered nicotine 21 mg/24 hr transdermal film, extended release 1 patch, Topically, Daily, for 30 days, apply to skin, # 30 patch, 0 Refills, Acute 01/01/23 17:20:00 EDT, 12/02/22 17:20:00 EDT, Patch, [facility]/pharmacy #[id number], Partial fill upon patient request if the prescription is for a schedule II opioid drug., 1 pat... Start Date: 12/02/22 Stop Date: 01/01/23 Status: Ordered Symbicort 160mcg/4.5mcg Inhaler 2, puffs, Inhalation, 2 times a day, # 1 each, Refills 5, Tot. Refills 5, Maintenance, 09/18/20 8:45:00 EDT, Aerosol, Route to Pharmacy Electronically, [id number], [facility]/pharmacy #[id number], 178, cm, 09/18/20 8:15:00 EDT, Height, [...] Active 1given comprehesive chol diet handout 2counsel [id number] Vital Signs Most recent to oldest [Reference Range]: 1 Height 180 cm (10/03/22 9:16 AM) Weight 90.6 kg (10/03/22 9:16 AM) Oxygen Saturation [94-100 %] 98 % (10/03/22 9:16 AM) Pulse Rate [55-90 bpm] 117 bpm *H* (10/03/22 9:16 AM) Body Mass Index [18.5-24.99 kg/m2] 27.96 kg/m2 *H* (10/03/22 9:16 AM) Blood Pressure [90-138/55-84 mm Hg] 116/ 91mm Hg (10/03/22 9:16 AM) Temperature [96.8-100.4 DegF] 97.8 DegF (10/03/22 9:16 AM) Temperature Route Oral (10/03/22 9:16 AM) Social History Social History Type Response Smoking Status 10 or more cigarette s (1/2 pack or more)/day in last 30 days; Interested in cessation: No; Patient wants NRT during admission No entered on: 10/03/22 Sex Radiology * Event Display: [place] Nuclear Medicine, Non- Authored Date: * Event Display: [place] Nuclear Medicine, Non- Authored Date: Patient Care team information Care Team Personnel Name: Kevin Rangel Position: [facility] RN Member Role: Primary Care Nurse Name: Ginny Bales RN Position: [facility] RN Member Role: Primary Care Nurse Name: Rojelio Gallardo MD Position: [facility] Physician - Primary Care Member Role: PCP Address: Address: [address] [place] [phone]- [place] Name: Mallory Cevallos MD Position: [facility] Physician - General Surgery Med Service: Cardiothoracic Surgery Member Role: Referring Physician Address: Address: [address] [place] [address] [address] [facility] [place] [address]- [place] Name: Lavern Chen MD Position: [facility] Physician - Oncology Med Service: Hematology & Oncology Address: Address: [address] [place] [address] for Cancer Care [facility] [place] [address]- Care Team Related Persons Name: LIZETTE RAMIREZ Address: home [address] [place] [address] Name: HAILEY JOHNSON Address: [place] [address]
--- OUTSIDE RECORDS SUMMARY | 2022-12-21 14:28 | XMS_ITS | Continuity of Care Document ---
Author Name Unknown Organization [facility] ter Address [address] [place] [address]- Care Team Providers Care Medical Billing Associate Name Role Phone Paulina BOWER, Rojelio Glover Primary Care Physician Encounter [facility] [place] Date(s): 09/09/19 - 01/04/[address] [address]- [facility] Attending Physician: Vi Reyna MD Admitting Physician: Vi Reyna MD Referring Physician: Vi Reyna MD Allergies, Adverse Reactions, Alerts Substance Reaction Severity Status Other Environmental Allergy POLLEN Active Immunizations Given and Recorded Vaccine Date Status Refusal Reason tetanus/diphtheria/pertussis, acel(Tdap) 03/24/19 Given tetanus/diphtheria/pertussis, acel(Tdap) 03/22/09 Given influenza virus vaccine, inactivated 03/24/19 Give n influenza virus vaccine, inactivated 1 04/05/18 Gi purvi Tetanus Toxoid Vaccine (oldterm) 05/04/99 Given 1Result Comment: [04/05/2018] [facility] [id number] Medications albuterol CFC free 90 mcg/inh inhalation aerosol See Instructions, # 18 Unknown, Refills 5 Tot. Refills 5, TAKE 2 PUFFS EVERY 6 HOURS, [id number] Start Date: 11/12/18 Status: Ordered Cannabis (Schedule I Substance) 0 Refills, Maintenance, 04/05/18 8:17:12 EST Start Date: 04/05/18 Status: Ordered escitalopram 10 mg oral tablet 1 tablet = 10 mg, By Mouth, Daily, # 30 tablet, 5 Refills, Maintenance, 09/15/19 10:09:00 EDT, Tablet, [id number], 178.8, cm, 09/15/19 9:00:00 EDT, Height Start Date: 5/14/20 Status: Ordered folic acid 1 mg oral tablet 1 mg, 1, tablet, By Mouth, Daily, # 30 tablet, Refills 5, Tot. Refills 5, Maintenance, 11/19/18 13:19:18 EDT, Route to Pharmacy Electronically, [id number], [facility]/pharmacy #[id number] Start Date: 11/19/18 Status: Ordered multivitamin [...] 11/19/18 13:18:27 EDT, Route to Pharmacy Electronically, [id number], [facility]/pharmacy #[id number] Start Date: 11/19/18 Status: Ordered Tylenol [...] Active 1given comprehesive chol diet handout 2counsel [id number] Social History Social History Type Response Smoking Status 10 or more cigarette s (1/2 pack or more)/day in last 30 days entered on: 04/05/18 Sex
--- OUTSIDE RECORDS SUMMARY | 2022-12-21 14:28 | XMS_ITS | Continuity of Care Document ---
Author Name Unknown Organization [facility] Eric lt Address [address] [place] [address]- Care Team Providers Care Fuselage Framer Name Role Phone Rojelio Gallardo MD Primary Care Physician En[place] [facility] [place](s): 09/18/20 - 09/25/20 [facility] [place] Adult [address] [place] [address]- Attending Physician: Rojelio Gallardo MD Allergies, Adverse Reactions, Alerts Substance Reaction Severity Status Other Environmental Allergy POLLEN Active Immunizations Given and Recorded Vaccine Date Status Refusal Reason SARS-CoV-2 (COVID-19) mRNA-1273 vaccine 08/31/20 R ecorded tetanus/diphtheria/pertussis, acel(Tdap) 03/24/19 Given tetanus/diphtheria/pertussis, acel(Tdap) 03/22/09 Given influenza virus vaccine, inactivated 03/24/19 Give n influenza virus vaccine, inactivated 1 04/05/18 Gi purvi Tetanus Toxoid Vaccine (oldterm) 05/04/99 Given 1Result Comment: [04/05/2018] [facility] [id number] Medications Albuterol (Eqv-ProAir HFA) 90 mcg/inh inhalation aerosol 2 puffs, Inhalation, Every 6 hours, # 1 each, 5 Refills, Maintenance, 09/18/20 8:44:00 EDT, [facility]/pharmacy #[id number], Partial fill upon patient request if the [...] 8:45:00 EDT, Aerosol, Route to Pharmacy Electronically, [id number], [facility]/pharmacy #[id number], 178, cm, 09/18/20 8:15:00 EDT, Height, 77... Start Date: 09/18/20 Status: Ordered thiamine 100 mg oral tablet 100 mg, 1, tablet, By Mouth, Daily, # 30 tablet, Refills 5, Tot. Refills 5, Maintenance, 09/18/20 8:40:00 EDT, Route to Pharmacy Electronically, [facility]/pharmacy #[id number], Partial fill upon patient request [...] Active 1given comprehesive chol diet handout 2counsel [id number] Vital Signs Most recent to oldest [Reference Range]: 1 Height 178 cm (09/18/20 8:15 AM) Social History Social History Type Response Smoking Status 10 or more cigarette s (1/2 pack or more)/day in last 30 days entered on: 04/05/18 Sex
--- OUTSIDE RECORDS SUMMARY | 2022-12-21 14:28 | XMS_ITS | Continuity of Care Document ---
Author Name Unknown Organization [facility] Eric lt Address [address] [place] [address]- Care Team Providers Care Child Support Case Officer Name Role Phone Rojelio Gallardo MD Primary Care Physician [place] [facility] [place]21 [facility] [address] [place] [address]- Attending Physician: Rojelio Gallardo MD Allergies, Adverse [...] Vaccine (oldterm) 05/04/99 Given 1Result Comment: [04/05/2018] [facility] [id number] Medications Albuterol (Eqv-ProAir HFA) 90 mcg/inh inhalation aerosol 2 puffs, Inhalation, Every 6 hours, # 1 each, 1 Refills, Maintenance, 04/05/21 10:17:00 EST, [facility]/pharmacy #[id number], Partial fill upon patient request if the [...] 8:45:00 EDT, Aerosol, Route to Pharmacy Electronically, [id number], [facility]/pharmacy #[id number], 178, cm, 09/18/20 8:15:00 EDT, Height, 77... Start Date: 09/18/20 Status: Ordered thiamine 100 mg oral tablet 100 mg, 1, tablet, By Mouth, Daily, # 30 tablet, Refills 5, Tot. Refills 5, Maintenance, 03/18/21 11:01:00 EST, Route to Pharmacy Electronically, [facility]/pharmacy #[id number], Partial fill upon patient requestif the prescription is for a schedule II opioid ayo... Start Date: 03/18/21 Status: Ordered thiamine 100 mg oral tablet 100 mg, 1, tablet, By Mouth, Daily, # 30 tablet, Refills 5, Tot. Refills 5, Maintenance, 09/18/20 8:40:00 EDT, Route to Pharmacy Electronically, [facility]/pharmacy #[id number], Partial fill upon [...] Active 1given comprehesive chol diet handout 2counsel [id number] Vital Signs Most recent to oldest [Reference Range]: 1 2 3 Height 178 cm (07/17/21 10:15 AM) 178 cm (07/17/21 10:13 AM) 178 cm (07/17/21 10:09 AM) Weight 75.4 kg (07/17/21 9:53 AM) Oxygen Saturation [94-100 %] 96 % (07/17/21 9:53 AM) Pulse Rate [55-90 bpm] 66 bpm (07/17/21 10:15 AM) 60 bpm (07/17/21 10:13 AM) 60 bpm (07/17/21 10:09 AM) Body Mass Index [18.5-24.99] 23.8 (07/17/21 9:53 AM) Blood Pressure [90-138/55-84 mm Hg] 115/55mm Hg (07/17/21 10:15 AM) 115/64mm Hg (07/17/21 10:13 AM) 120/80mm Hg (07/17/21 10:09 AM) Temperature [96.8-100.4 DegF] 98.0 DegF (07/17/21 9:53 AM) Mode of Delivery (Oxygen) Room air (07/17/21 9:53 AM) Blood pressure sites Arm, right (07/17/21 10:15 AM) Arm, right (07/17/21 10:09 AM) Arm, left (07/17/21 9:57 AM) Temperature Route Oral (07/17/21 9:53 AM) Weight Obtained Via Standing scale (07/17/21 9:53 AM) Social History Social History Type Response Smoking Status 10 or more cigarette s (1/2 pack or more)/day in last 30 days entered on: 04/05/18 Sex
--- OUTSIDE RECORDS SUMMARY | 2022-12-21 14:28 | XMS_ITS | Continuity of Care Document ---
Author Name Unknown Organization [facility] [place] Eric lt Address [address] [place] [address]- Care Team Providers Care Cyber Defense Incident Responder Name Role Phone Paulina BOWER, Rojelio Glover Primary Care Physician En[place] [facility] [place](s): 02/06/22 - 03/08/22 [facility] [place] Adult [address] [place] [address]- Allergies, Adverse Reactions, Alerts Substance Reaction Severity [...] Vaccine (oldterm) 05/04/99 Given 1Result Comment: [04/05/2018] [facility] [id number] Medications Albuterol (Eqv-ProAir HFA) 90 mcg/inh inhalation aerosol 2 puffs, Inhalation, Every 6 hours, # 1 each, 1 Refills, Maintenance, 04/05/21 10:17:00 EST, [facility]/pharmacy #[id number], Partial fill upon patient request if the prescription is for a schedule II opioid drug., 2 puffs Inhalation Every 6 hours, 178, cm, 04/05/... Start Date: 04/05/21 Status: Ordered Cannabis (Schedule I Substance) 0 Refills, Maintenance, 04/05/18 8:17:12 EST Start Date: 04/05/18 Status: Ordered Daily Meg oral tablet 1 tablet, By Mouth, Daily, # 90 tablet, 1 Refills, [facility] STORE [address]35, 90, TAKE 1 TABLET BY MOUTH EVERY DAY, 178, cm, 08/08/21 12:59:00 EDT, Height Start Date: 10/17/21 Status: Ordered escitalopram 20 mg oral tablet 1 tablet = 20 mg, By Mouth, Daily, # 90 tablet, 1 Refills, Maintenance, 08/19/21 13:44:00 EDT, [facility]/pharmacy #[id number], Partial fill upon patient request if the prescription is for a schedule II opioid drug., 178, cm, 08/08/21 12:59:00 EDT, Height, 77, kg,... Start Date: 08/19/21 Status: Ordered Flonase 50 mcg/inh nasal spray 2 sprays, Nares, Both, Daily in AM, # 15.8 mL, 5 Refills, Maintenance, 10/29/21 8:58:00 EDT, [place],[facility]/pharmacy #[id number], Partial fill upon patient request if the prescription is for a schedule II opioid drug., 2 sprays Nares, Both Daily in AM, 178, cm,... Start Date: 10/29/21 Status: Ordered folic acid 1 mg oral tablet 1 mg, 1, tablet, By Mouth, Daily, # 90 tablet, Refills 1, Tot. Refills 1, Maintenance, 08/08/21 13:05:00 EDT, Route to Pharmacy Electronically, [facility]/pharmacy #[id number], Partial fill upon patient [...] tablet, 2 Refills, Maintenance, 08/08/21 13:08:00 EDT, [facility]/pharmacy #[id number], Partial fill upon patient request if the prescription is for a schedule... Start Date: 08/08/21 Status: Ordered naltrexone 50 mg oral tablet 1 tablet = 50 mg, By Mouth, Daily, # 30 tablet, 5 Refills, Maintenance, 10/29/21 8:57:00 EDT, Tablet, [facility]/pharmacy #[id number], Partial fill upon patient request if the prescription is for a schedule II opioid drug., 178, cm, 10/29/21 8:40:00 EDT, Height Start Date: 10/29/21 Status: Ordered nicotine 21 mg/24 hr transdermal film, extended release See Instructions, Apply one patch to skin in morning. Remove at bedtime., # 30 patch, 1 Refills, Maintenance, 03/06/22 16:58:00 EDT, [place], [place] - [id number], Partial fill upon patient request if the prescription is for a schedul... Start Date: 03/06/22 Status: Ordered Symbicort 160mcg/4.5mcg Inhaler 2, puffs, Inhalation, 2 times a day, # 1 each, Refills 5, Tot. Refills 5, Maintenance, 09/18/20 8:45:00 EDT, Aerosol, Route to Pharmacy Electronically, [id number], [facility]/pharmacy #[id number], 178, cm, 09/18/20 8:15:00 EDT, Height, 77... Start Date: 09/18/20 Status: Ordered thiamine 100 mg oral tablet 100 mg, 1, tablet, By Mouth, Daily, # 90 tablet, Refills 3, Tot. Refills 3, Maintenance, 03/06/22 16:57:00 EDT, Route to Pharmacy Electronically, [place], [place] - [id number], Partial fill upon patient request if the [...] Active 1given comprehesive chol diet handout 2counsel [id number] Social History Social History Type Response Smoking Status 10 or more cigarette s (1/2 pack or more)/day in last 30 days entered on: 04/05/18 Sex Patient Care team information Personnel Name: Paulina BOWER, Rojelio Glover Address: Address: [address] [place] [id number]
--- OUTSIDE RECORDS SUMMARY | 2022-12-21 14:28 | XMS_ITS | Continuity of Care Document ---
Author Name Unknown Organization [facility] Jonathan Eric lt Address [address] [place] [address]- Care Team Providers Care Handkerchief Maker Name Role Phone Rojelio Gallardo MD Primary Care Physician [phone] Encounter [facility] Date(s): 08/05/22 - 08/12/22 [facility] Adult [address] [place] [address]- Attending Physician: Rojelio Gallardo MD Allergies, Adverse Reactions, Alerts No Known [...] Vaccine (oldterm) 05/04/99 Given 1Result Comment: [04/05/2018] [facility] [id number] Medications Albuterol (Eqv-ProAir HFA) 90 mcg/inh inhalation aerosol 2 puffs, Inhalation, Every 6 hours, # 1 each, 1 Refills, Maintenance, 04/05/21 10:17:00 EST, [facility]/pharmacy #[id number], Partial fill upon patient request if the prescription is for a schedule II opioid drug., 2 puffs Inhalation Every 6 hours, 178, cm, 04/05/... Start Date: 04/05/21 Status: Ordered betamethasone-clotrimazole 0.05%-1% [...] Mouth, Daily, # 90 tablet, 1 Refills, [facility], 90, TAKE 1 TABLET BY MOUTH EVERY [...] Refills, Maintenance, 07/11/22 13:19:00 EST, [facility], 178, cm, 11/29/21 11:03:00 EDT, Height Start Date: 07/11/22 Status: Ordered Flonase 50 mcg/inh nasal spray 2 sprays, Nares, Both, Daily in AM, # 15.8 mL, 5 Refills, Maintenance, 10/29/21 8:58:00 EDT, [id number], Partial fill upon patient request if the prescription is for a schedule II opioid drug., 2 sprays Nares, Both Daily in AM, 178, cm,... Start Date: 10/29/21 Status: Ordered folic acid 1 mg oral tablet 1 mg, 1, tablet, By Mouth, Daily, # 90 tablet, Refills 1, Tot. Refills 1, Maintenance, 08/08/21 13:05:00 EDT, Route to Pharmacy Electronically, [facility]/pharmacy #[id number], Partial fill upon patient [...] Refills, Maintenance, 10/29/21 8:57:00 EDT, Tablet, [facility]/pharmacy #[id number], Partial fill upon patient request if the prescription is for a schedule II opioid drug., 178, cm, 10/29/21 8:40:00 EDT, Height Start Date: 10/29/21 Status: Ordered Symbicort 160mcg/4.5mcg Inhaler 2, puffs, Inhalation, 2 times a day, # 1 each, Refills 5, Tot. Refills 5, Maintenance, 09/18/20 8:45:00 EDT, Aerosol, Route to Pharmacy Electronically, [id number], [facility]/pharmacy #[id number], 178, cm, 09/18/20 8:15:00 [...] Active 1given comprehesive chol diet handout 2counsel [id number] Vital Signs Most recent to oldest [Reference Range]: 1 Height 178 cm (08/05/22 9:49 AM) Weight 93.1 kg (08/05/22 9:49 AM) Oxygen Saturation [94-100 %] 98 % (08/05/22 9:49 AM) Pulse Rate [55-90 bpm] 101 bpm *H* (08/05/22 9:49 AM) Body Mass Index [18.5-24.99 kg/m2] 29.38 kg/m2 *H* (08/05/22 9:49 AM) Blood Pressure [90-138/55-84 mm Hg] 134/ 78mm Hg (08/05/22 9:49 AM) Temperature [96.8-100.4 DegF] 97.8 DegF (08/05/22 9:49 AM) Mode of Delivery (Oxygen) Room air (08/05/22 9:49 AM) Blood pressure sites Arm, right (08/05/22 9:49 AM) Temperature Route Oral (08/05/22 9:49 AM) Weight Obtained Via Standing scale (08/05/22 9:49 AM) Social History Social History Type Response Smoking Status 10 or more cigarette s (1/2 pack or more)/day in last 30 days entered on: 04/05/18 Sex Patient Care team information Care Team Personnel Name: Paulina BOWER, Rojelio Glover Position: [facility] Primary Care Physician Member Role: PCP Address: Address: [address] [place] [id number]- Care Team Related Persons Name: LIZETTE RAMIREZ Address: home [address] [place] [id number] Name: HAILEY JOHNSON Address: [place] [address]
--- OUTSIDE RECORDS SUMMARY | 2022-12-21 14:28 | XMS_ITS | Continuity of Care Document ---
Author Name Unknown Organization [facility] Eric lt Address [address] [place] [address]- Care Team Providers Care Headmaster/Mistress Name Role Phone Paulina BOWER, Rojelio Glover Primary Care Physician [phone] Encounter [facility] Date(s): 01/23/21 - 01/30/21 [facility] Adult [address] [place] [address]- Encounter Diagnosis Alcoholism(Discharge Diagnosis) - 01/23/21 Attending Physician: Not on Staff, Attending MD Allergies, Adverse Reactions, Alerts Substance Reaction [...] Given 1Result Comment: [04/05/2018] [facility] [id number] Medications Albuterol (Eqv-ProAir HFA) 90 mcg/inh inhalation aerosol 2 puffs, Inhalation, Every 6 hours, # 1 each, 5 Refills, Maintenance, 09/18/20 8:44:00 EDT, [facility]/pharmacy #[id number], Partial fill upon patient request if the prescription is for a schedule II opioid drug., 2 puffs Inhalation Every 6 hours, 178, cm, ... Start Date: 09/18/20 Status: Ordered Cannabis (Schedule I Substance) 0 Refills, Maintenance, 12/03/18 8:17:12 EST Start Date: 04/05/18 Status: Ordered folic acid 1 mg oral tablet 1 mg, 1, tablet, By Mouth, Daily, # 30 tablet, Refills 5, Tot. Refills 5, Maintenance, 09/18/20 8:40:00 EDT, Route to Pharmacy Electronically, [facility]/pharmacy #[id number], Partial fill upon patient request ifthe [...] 8:45:00 EDT, Aerosol, Route to Pharmacy Electronically, [id number], [facility]/pharmacy #[id number], 178, cm, 09/18/20 8:15:00 EDT, Height, 77... Start Date: 09/18/20 Status: Ordered thiamine 100 mg oral tablet 100 mg, 1, tablet, By Mouth, Daily, # 30 tablet, Refills 5, Tot. Refills 5, Maintenance, 09/18/20 8:40:00 EDT, Route to Pharmacy Electronically, [facility]/pharmacy #[id number], Partial fill [...] Active 1given comprehesive chol diet handout 2counsel [id number] Diagnosis Diagnosis Type Effective Dates Health Status Clini juliann Service Informant Alcoholism Discharge Diagnosis 01/23/21 Vital Signs Most recent to oldest [Reference Range]: 1 2 Height 178 cm (01/23/21 10:11 AM) 178 cm (01/23/21 10:07 AM) Weight 79.4 kg (01/23/21 10:11 AM) Body Mass Index [18.5-24.99] 25.06 *H* (01/23/21 10:11 AM) Weight Obtained Via Patient/family state d (01/23/21 10:11 AM) Social History Social History Type Response Smoking Status 10 or more cigarette s (1/2 pack or more)/day in last 30 days entered on: 04/05/18 Sex
--- OUTSIDE RECORDS SUMMARY | 2022-12-21 14:28 | XMS_ITS | Continuity of Care Document ---
Author Name Unknown Organization [facility] Address [address] [place] [address]- Care Team Providers Care Developer Programmer Analyst Name Role Phone Rojelio Gallardo MD Primary Care Physician [phone] Encounter [facility] Date(s): 09/09/19 - 09/16/19 [facility] [address] [place] [address]- [facility] Attending Physician: Maribell BOWER, Vi Referring Physician: Rojelio Gallardo MD Allergies, Adverse Reactions, Alerts Substance Reaction Severity Status Other Environmental Allergy POLLEN Active Immunizations Given and Recorded Vaccine Date Status Refusal Reason tetanus/diphtheria/pertussis, acel(Tdap) 03/24/19 Given tetanus/diphtheria/pertussis, acel(Tdap) 03/22/09 Given influenza virus vaccine, inactivated 03/24/19 Give n influenza virus vaccine, inactivated 1 04/05/18 Gi purvi Tetanus Toxoid Vaccine (oldterm) 05/04/99 Given 1Result Comment: [04/05/2018] [facility] [id number] Medications albuterol CFC free 90 mcg/inh inhalation [...] 11/19/18 13:19:18 EDT, Route to Pharmacy Electronically, [id number], [facility]/pharmacy #[id number] Start Date: 11/19/18 Status: Ordered [...] 11/19/18 13:18:27 EDT, Route to Pharmacy Electronically, [id number], [facility]/pharmacy #[id number] Start Date: 11/19/18 Status: Ordered [...] Active 1given comprehesive chol diet handout 2counsel [id number] Social History Social History Type Response Smoking Status 10 or more cigarette s (1/2 pack or more)/day in last 30 days entered on: 04/05/18 Sex
--- OUTSIDE RECORDS SUMMARY | 2022-12-21 14:28 | XMS_ITS | Continuity of Care Document ---
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/pharmacy #[id number], Partial fill upon patient request if the prescription is for a schedule II opioid drug., 2 puffs Inhalation Every 6 hours, 178, cm, ... Start Date: 04/05/21 Status: Ordered apixaban 5 mg oral tablet 1 tablet = 5 mg, By Mouth, 2 times a day, # 60 tablet, 2 Refills, Maintenance, 10/24/22 14:55:00 EDT, Tablet, [facility]/pharmacy #[id number], Partial fill upon patient request if the prescription is for a schedule II opioid drug., 180, cm, 10/03/22 9:16:00 EDT, H... Start Date: 10/24/22 Status: Ordered betamethasone-clotrimazole 0.05%-1% topical cream See Instructions, Apply gentle coat apply twice daily and then wash hands, # 45 Gm, 0 Refills, Maintenance, 08/05/22 10:04:00 EDT, [facility]/pharmacy #[id number], Partial fill upon patient request [...] Daily, # 90 tablet, 1 Refills, [facility] ST[facility] 43925, 90, TAKE 1 TABLET BY MOUTH EVERY DAY, 178, cm, 08/08/21 12:59:00 EDT, Height Start Date: 10/17/21 Status: Ordered Eliquis Starter Pack 5 mg oral tablet 2 tablet = 10 mg, By Mouth, 2 times a day, followed by 1 tablet by mouth twice daily for 23 days, #74 tablet, 0 Refills, Maintenance, 08/06/22 5:55:00 EDT, [facility]/pharmacy #0693, Partial fill upon patient request if the prescription is for a schedule II... Start Date: 08/06/22 Stop Date: 08/13/22 Status: Ordered escitalopram 20 mg oral tablet 1 tablet, By Mouth, Daily, # 90 tablet, 1 Refills, Maintenance, 07/11/22 13:19:00 EST, [facility], 178, cm, 11/29/21 11:03:00 EDT, Height Start Date: 07/11/22 Status: Ordered Flonase 50 mcg/inh nasal spray 2 sprays, Nares, Both, Daily in AM, # 15.8 mL, 5 Refills, Maintenance, 10/29/21 8:58:00 EDT, [place],[facility]/pharmacy #0693, Partial fill upon patient request if the prescription is for a schedule II opioid drug., 2 sprays Nares, Both Daily in AM, 178, cm,... Start Date: 10/29/21 Status: Ordered folic acid 1 mg oral tablet 1, tablet, By Mouth, Daily, # 90 tablet, Refills 1, Maintenance, 09/10/22 11:41:00 EDT, Route to Pharmacy Electronically, [facility], 180, cm, 09/05/22 11:52:00 EDT, Height, 91.9, [...] 1 Refills, Maintenance, 08/05/22 10:01:00 EDT, Tablet, [facility]/pharmacy #[id number], Partial fill upon patient request if the prescription is for a schedule II opioid drug., 178, cm, 08/05/22 9:49:00 ED... Start Date: 08/05/22 Status: Ordered naltrexone 50 mg oral tablet 1 tablet = 50 mg, By Mouth, Daily, # 30 tablet, 5 Refills, Maintenance, 10/29/21 8:57:00 EDT, Tablet, [facility]/pharmacy #[id number], Partial fill upon patient request if the prescription is for a schedule II opioid drug., 178, cm, 10/29/21 8:40:00 EDT, Height Start Date: 10/29/21 Status: Ordered oxyCODONE 5 mg oral tablet 5 mg, By Mouth, Every 6 hours, PRN, # 10 tablet, Refills 0, Tot. Refills 0, Soft Stop, Pain , Moderate, 09/05/22 16:56:00 EDT, Route to Pharmacy Electronically, [facility], Partial fillupon patient request if the prescription is for a s... Start Date: 09/05/22 Stop Date: 09/07/22 Status: Ordered Symbicort 160mcg/4.5mcg Inhaler 2, puffs, Inhalation, 2 times a day, # 1 each, Refills 5, Tot. Refills 5, Maintenance, 09/18/20 8:45:00 EDT, Aerosol, Route to Pharmacy Electronically, [id number], [facility]/pharmacy #[id number], 178, cm, 09/18/20 8:15:00 EDT, [...] Active 1given comprehesive chol diet handout 2counsel [id number] Social History Social History Type Response Smoking Status 10 or more cigarette s (1/2 pack or more)/day in last 30 days; Interested in cessation: No; Patient wants NRT during admission No entered on: 10/03/22 Sex Patient Care team information Care Team Personnel Name: Rojelio Gallardo MD Position: S Physician - Primary Care Member Role: PCP Address: Address: [address] [place] [address]- Care Team Related Persons Name: LIZETTE RAMIREZ Address: home [address] [place] [address] Name: HAILEY JOHNSON Address: [place] [address]
--- OUTSIDE RECORDS SUMMARY | 2022-12-21 14:28 | XMS_ITS | Continuity of Care Document ---
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 Name Role Phone Rojelio Gallardo MD Primary Care Physician [facility]counter [facility] Date(s): 09/11/20 - 09/18/20 [facility] Adult [address] [place] [address]- Attending Physician: Rojelio Gallardo MD Allergies, Adverse [...] Given 1Result Comment: [04/05/2018] [facility] [id number] Medications Albuterol (Eqv-ProAir HFA) 90 mcg/inh inhalation aerosol 2 puffs, Inhalation, Every 6 hours, # 1 each, 5 Refills, Maintenance, 09/18/20 8:44:00 EDT, [facility]/pharmacy #[id number], Partial fill upon patient request if the [...] 8:45:00 EDT, Aerosol, Route to Pharmacy Electronically, [id number], [facility]/pharmacy #[id number], 178, cm, 09/18/20 8:15:00 EDT, Height, 77... Start Date: 09/18/20 Status: Ordered thiamine 100 mg oral tablet 100 mg, 1, tablet, By Mouth, Daily, # 30 tablet, Refills 5, Tot. Refills 5, Maintenance, 09/18/20 8:40:00 EDT, Route to Pharmacy Electronically, [facility]/pharmacy #[id number], Partial fill upon patient request if [...] Active 1given comprehesive chol diet handout 2counsel [id number] Vital Signs Most recent to oldest [Reference Range]: 1 Height 178 cm (09/11/20 8:08 AM) Weight 81.81 kg (09/11/20 8:08 AM) Body Mass Index [18.5-24.99] 25.82 *H* (09/11/20 8:08 AM) Weight Obtained Via Standing scale (09/11/20 8:08 AM) Social History Social History Type Response Smoking Status 10 or more cigarette s (1/2 pack or more)/day in last 30 days entered on: 04/05/18 Sex
--- OUTSIDE RECORDS SUMMARY | 2022-12-21 14:28 | XMS_ITS | Continuity of Care Document ---
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 Grain Cleaner Name Role Phone Rojelio Gallardo MD Primary Care Physician [phone] Encounter [facility] Date(s): 08/08/21 - 11/08/21 [facility] Adult [address] [place] [address]- Attending Physician: Rojelio Gallardo MD Allergies, Adverse [...] Given 1Result Comment: [04/05/2018] [facility] [id number] Medications Albuterol (Eqv-ProAir HFA) 90 mcg/inh inhalation aerosol 2 puffs, Inhalation, Every 6 hours, # 1 each, 1 Refills, Maintenance, 04/05/21 10:17:00 EST, [facility]/pharmacy #8259, Partial fill upon patient request if the prescription is for a schedule II opioid drug., 2 puffs Inhalation Every 6 hours, 178, cm, 04/05/... Start Date: 04/05/21 Status: Ordered Cannabis (Schedule I Substance) 0 Refills, Maintenance, 04/05/18 8:17:12 EST Start Date: 04/05/18 Status: Ordered Daily Meg oral tablet 1 tablet, By Mouth, Daily, # 90 tablet, 1 Refills, [facility] 43[facility], 90, TAKE 1 TABLET BY MOUTH EVERY DAY, 178, cm, 08/08/21 12:59:00 EDT, Height Start Date: 10/17/21 Status: Ordered escitalopram 20 mg oral tablet 1 tablet = 20 mg, By Mouth, Daily, # 90 tablet, 1 Refills, Maintenance, 08/19/21 13:44:00 EDT, [facility]/pharmacy #[id number], Partial fill upon patient request if the prescription is for a schedule II opioid drug., 178, cm, 08/08/21 12:59:00 EDT, Height, 77, kg,... Start Date: 08/19/21 Status: Ordered Flonase 50 mcg/inh nasal spray 2 sprays, Nares, Both, Daily in AM, # 15.8 mL, 5 Refills, Maintenance, 10/29/21 8:58:00 EDT, [place],[facility]/pharmacy #0693, Partial fill upon patient request if the prescription is for a schedule II opioid drug., 2 sprays Nares, Both Daily in AM, 178, cm,... Start Date: 10/29/21 Status: Ordered folic acid 1 mg oral tablet 1 mg, 1, tablet, By Mouth, Daily, # 90 tablet, Refills 1, Tot. Refills 1, Maintenance, 08/08/21 13:05:00 EDT, Route to Pharmacy Electronically, [facility]/pharmacy #[id number], Partial fill upon patient request [...] tablet, 2 Refills, Maintenance, 08/08/21 13:08:00 EDT, [facility]/pharmacy #0693, Partial fill upon patient request if the prescription is for a schedule... Start Date: 08/08/21 Status: Ordered naltrexone 50 mg oral tablet 1 tablet = 50 mg, By Mouth, Daily, # 30 tablet, 5 Refills, Maintenance, 10/29/21 8:57:00 EDT, Tablet, [facility]/pharmacy #0693, Partial fill upon patient request if the prescription is for a schedule II opioid drug., 178, cm, 10/29/21 8:40:00 EDT, Height Start Date: 10/29/21 Status: Ordered Symbicort 160mcg/4.5mcg Inhaler 2, puffs, Inhalation, 2 times a day, # 1 each, Refills 5, Tot. Refills 5, Maintenance, 09/18/20 8:45:00 EDT, Aerosol, Route to Pharmacy Electronically, [id number], [facility]/pharmacy #0693, 178, cm, 09/18/20 8:15:00 EDT, Height, 77... Start Date: 09/18/20 Status: Ordered thiamine 100 mg oral tablet 100 mg, 1, tablet, By Mouth, Daily, # 90 tablet, Refills 1, Tot. Refills 1, Maintenance, 08/08/21 13:05:00 EDT, Route to Pharmacy Electronically, [facility]/pharmacy #0693, Partial fill upon patient requestif [...] Active 1given comprehesive chol diet handout 2counsel [id number] Social History Social History Type Response Smoking Status 10 or more cigarette s (1/2 pack or more)/day in last 30 days entered on: 04/05/18 Sex
--- OUTSIDE RECORDS SUMMARY | 2022-12-21 14:28 | XMS_ITS | Continuity of Care Document ---
Author Name Unknown Organization [facility] Address [address] [place] [address] adriana, [address] [place] [address]- Care Team Providers Care Patient Access Associate Name Role Phone Paulina BOWER, Rojelio Glover Primary Care Physician [phone] Encounter [facility] Date(s): 09/23/22 - 09/30/22 [facility] [address] [place] [address], [address] [place] [address]- Attending Physician: Mallory Cevallos MD Allergies, Adverse Reactions, [...] Vaccine (oldterm) 05/04/99 Given 1Result Comment: [04/05/2018] [facility] [id number] Medications acetaminophen 325 mg oral tablet 975 [...] # 90 tablet, 1 Refills, [facility], 90, TAKE 1 TABLET BY MOUTH EVERY [...] Refills, Maintenance, 07/11/22 13:19:00 EST, [facility], 178, cm, 11/29/21 11:03:00 EDT, Height Start Date: 07/11/22 Status: Ordered Flonase 50 mcg/inh nasal spray 2 sprays, Nares, Both, Daily in AM, # 15.8 mL, 5 Refills, Maintenance, 10/29/21 8:58:00 EDT, [place],[facility]/pharmacy #0693, Partial fill upon patient request if the prescription is for a schedule II opioid drug., 2 sprays Nares, Both Daily in AM, 178, cm,... Start Date: 10/29/21 Status: Ordered folic acid 1 mg oral tablet 1, tablet, By Mouth, Daily, # 90 tablet, Refills 1, Maintenance, 09/10/22 11:41:00 EDT, Route to Pharmacy Electronically, [facility] 270[facility], 180, cm, 09/05/22 11:52:00 EDT, Height, 91.9, [...] 1 Refills, Maintenance, 08/05/22 10:01:00 EDT, Tablet, [facility]/pharmacy #0693, Partial fill upon patient request if the prescription is for a schedule II opioid drug., 178, cm, 08/05/22 9:49:00 ED... Start Date: 08/05/22 Status: Ordered naltrexone 50 mg oral tablet 1 tablet = 50 mg, By Mouth, Daily, # 30 tablet, 5 Refills, Maintenance, 10/29/21 8:57:00 EDT, Tablet, [facility]/pharmacy #0693, Partial fill upon patient [...] Route to Pharmacy Electronically, [facility], Partial fillupon patient request if the prescription is for a s... Start Date: 09/05/22 Stop Date: 09/07/22 Status: Ordered Symbicort 160mcg/4.5mcg Inhaler 2, puffs, Inhalation, 2 times a day, # 1 each, Refills 5, Tot. Refills 5, Maintenance, 09/18/20 8:45:00 EDT, Aerosol, Route to Pharmacy Electronically, [id number], [facility]/pharmacy #[id number], 178, cm, 09/18/20 8:15:00 [...] Active 1given comprehesive chol diet handout 2counsel [id number] Vital Signs Most recent to oldest [Reference Range]: 1 Height 180 cm (09/23/22 2:07 PM) Weight 90.4 kg (09/23/22 2:07 PM) Oxygen Saturation [94-100 %] 93 % *L* (09/23/22 2:07 PM) Pulse Rate [55-90 bpm] 118 bpm *H* (09/23/22 2:07 PM) Body Mass Index [18.5-24.99 kg/m2] 27.9 kg/m2 *H* (09/23/22 2:07 PM) Blood Pressure [90-138/55-84 mm Hg] 112/ 80mm Hg (09/23/22 2:07 PM) Temperature [96.8-100.4 DegF] 97.8 DegF (09/23/22 2:07 PM) Blood pressure sites Arm, right (09/23/22 2:07 PM) Temperature Route Temporal (09/23/22 2:07 PM) Weight Obtained Via Standing scale (09/23/22 2:07 PM) Social History Social History Type Response Smoking Status 10 or more cigarette s (1/2 pack or more)/day in last 30 days entered on: 04/05/18 Sex Patient Care team information Care Team Personnel Name: Rojelio Gallardo MD Position: S Physician - Primary Care Member Role: PCP Address: Address: [address] [place] [address]- [place] Care Team Related Persons Name: LIZETTE RAMIREZ Address: home [address] [place] [address] Name: HAILEY JOHNSON Address: [place] [address]
--- OUTSIDE RECORDS SUMMARY | 2022-12-21 14:28 | XMS_ITS | Continuity of Care Document ---
Author Name Unknown Organization [facility] ter Address [address] [place] [address]- Care Team Providers Care Tools And Parts Attendant Name Role Phone Rojelio Gallardo MD Primary Care Physician [phone] [place] [facility] [place] - 08/06/[address] [address]- Encounter Diagnosis DVT, lower extremity(Final) - 08/06/22 Discharge Disposition: A-D/C Home Attending Physician: French Judge MD Admitting Physician: French Judge MD Referring Physician: Not on Staff, Referring MD Allergies, Adverse Reactions, Alerts No Known [...] [facility] [id number] Medications Albuterol (Eqv-ProAir HFA) 90 mcg/inh inhalation aerosol 2 puffs, Inhalation, Every 6 hours, # 1 each, 1 Refills, Maintenance, 04/05/21 10:17:00 EST, [facility]/pharmacy #[id number], Partial fill upon patient request if the [...] Mouth, Daily, # 90 tablet, 1 Refills, [id number], 90, TAKE 1 TABLET BY MOUTH EVERY [...] Refills, Maintenance, 07/11/22 13:19:00 EST, [id number], 178, cm, 11/29/21 11:03:00 EDT, Height Start Date: 07/11/22 Status: Ordered Flonase 50 mcg/inh nasal spray 2 sprays, Nares, Both, Daily in AM, # 15.8 mL, 5 Refills, Maintenance, 10/29/21 8:58:00 EDT, [id number], Partial fill upon patient request if the prescription is for a schedule II opioid drug., 2 sprays Nares, Both Daily in AM, 178, cm,... Start Date: 10/29/21 Status: Ordered folic acid 1 mg oral tablet 1 mg, 1, tablet, By Mouth, Daily, # 90 tablet, Refills 1, Tot. Refills 1, Maintenance, 08/08/21 13:05:00 EDT, Route to Pharmacy Electronically, [facility]/pharmacy #[id number], Partial fill upon [...] 5 Refills, Maintenance, 10/29/21 8:57:00 EDT, Tablet, [id number], Partial fill upon patient request if the prescription is for a schedule II opioid drug., 178, cm, 10/29/21 8:40:00 EDT, Height Start Date: 10/29/21 Status: Ordered Symbicort 160mcg/4.5mcg Inhaler 2, puffs, Inhalation, 2 times a day, # 1 each, Refills 5, Tot. Refills 5, Maintenance, 09/18/20 8:45:00 EDT, Aerosol, Route to Pharmacy Electronically, [id number], [id number], 178, cm, 09/18/20 8:15:00 EDT, Height, [...] Active 1given comprehesive chol diet handout 2counsel [id number] Vital Signs Most recent to oldest [Reference Range]: 1 2 3 Height 180 cm (08/06/22 1:10 AM) 180 cm (08/05/22 10:44 PM) Weight 93 kg (08/06/22 1:10 AM) 93 kg (08/05/22 10:44 PM) Oxygen Saturation [94-100 %] 95 % (08/06/22 4:06 AM) 95 % (08/06/22 1:10 AM) 99 % (08/05/22 10:44 PM) Pulse Rate [55-90 bpm] 95 bpm *H* (08/06/22 4:06 AM) 101 bpm *H* (08/06/22 1:10 AM) 107 bpm *H* (08/05/22 10:44 PM) Body Mass Index [18.5-24.99 kg/m2] 28.7 kg/m2 *H* (08/06/22 1:10 AM) Blood Pressure [90-138/55-84 mm Hg] 125/71mm Hg (08/06/22 4:06 AM) 127/67mm Hg (08/06/22 1:10 AM) 118/81mm Hg (08/05/22 10:44 PM) Respiratory Rate [16-30 br/min] 18 br/min (08/06/22 1:10 AM) 18 br/min (08/05/22 10:06 PM) Temperature [96.8-100.4 DegF] 98.4 DegF (08/06/22 4:06 AM) 98.1 DegF (08/06/22 1:10 AM) 98.3 DegF (08/05/22 10:06 PM) Mode of Delivery (Oxygen) Room air (08/06/22 4:06 AM) Room air (08/06/22 1:10 AM) Room air (08/05/22 10:44 PM) Blood pressure sites Arm, right (08/06/22 4:06 AM) Arm, right (08/06/22 1:10 AM) Arm, left (08/05/22 10:06 PM) Temperature Route Oral (08/06/22 4:06 AM) Oral (08/06/22 1:10 AM) Oral (08/05/22 10:06 PM) Dry Weight 93 kg (08/06/22 1:10 AM) 93 kg (08/05/22 10:44 PM) Weight Obtained Via Standing scale (08/05/22 10:44 PM) Dry Weight Obtained Via Standing scale (08/05/22 10:44 PM) Social History Social History Type Response Smoking Status 10 or more cigarette s (1/2 pack or more)/day in last 30 days entered on: 04/05/18 Sex EKG study * Event Display: ECG 12-Lead Authored Date: Please click on pdf link to open report * Event Display: ECG 12-Lead Authored Date: Ventricular Rate: 112 BPM Atrial Rate: 112 BPM P-R Interval: 160 ms QRS Duration: 80 ms Q-T Interval: 350 ms QTC Calculation(Bazett): 477 ms P [place]: 71 degrees R [place]: -9 degrees T [place]: 73 degrees Sinus tachycardia Otherwise normal ECG When compared with ECG of 17-JUL-2021 10:17, Vent. rate has increased BY 45 BPM Questionable change in QRS axis Confirmed by ROBERTO SANTOYO MD ([id number]) on 08/06/2022 10:54:09 AM Perkins: ROBERTO SANTOYO MD Patient Care team information Care Team Personnel Name: Rojelio Gallardo MD Position: [facility] Primary Care Physician Member Role: PCP Address: Address: [address] [place] [address]- Name: Bethany Sweet RN Position: [facility] ED RN W/OE and Tasks Member Role: Patient Care Provider Name: Christian Huerta Position: [facility] Associate Professional Member Role: ED Physician Hydropulper Address: Address: [address] [place] [address]- Name: French Judge MD Position: [facility] ED Medicine MD Member Role: Admitting Physician Address: Address: [address] [place] [address] Care Team Related Persons Name: LIZETTE RAMIREZ Address: home [address] [place] [address] Name: HAILEY JOHNSON Address: [place] [address]
--- OUTSIDE RECORDS SUMMARY | 2022-12-21 14:28 | XMS_ITS | Continuity of Care Document ---
Author Name Unknown Organization [facility] ter Address [address] [place] [address]- Care Team Providers Care Investment Underwriter Name Role Phone Paulina BOWER, Rojelio Glover Primary Care Physician [phone] Encounter [facility] Date(s): 01/27/22 - 02/26/[address] [address] Allergies, Adverse Reactions, Alerts Substance Reaction Severity [...] Vaccine (oldterm) 05/04/99 Given 1Result Comment: [04/05/2018] [facility] [id number] Medications Albuterol (Eqv-ProAir HFA) 90 mcg/inh inhalation aerosol 2 puffs, Inhalation, Every 6 hours, # 1 each, 1 Refills, Maintenance, 04/05/21 10:17:00 EST, [facility]/pharmacy #[id number], Partial fill upon patient request if the prescription is for a schedule II opioid drug., 2 puffs Inhalation Every 6 hours, 178, cm, 04/05/... Start Date: 04/05/21 Status: Ordered Cannabis (Schedule I Substance) 0 Refills, Maintenance, 04/05/18 8:17:12 EST Start Date: 04/05/18 Status: Ordered Daily Meg oral tablet 1 tablet, By Mouth, Daily, # 90 tablet, 1 Refills, [facility] STORE [id number], 90, TAKE 1 TABLET BY MOUTH EVERY DAY, 178, cm, 08/08/21 12:59:00 EDT, Height Start Date: 10/17/21 Status: Ordered escitalopram 20 mg oral tablet 1 tablet = 20 mg, By Mouth, Daily, # 90 tablet, 1 Refills, Maintenance, 08/19/21 13:44:00 EDT, [facility]/pharmacy #[id number], Partial fill upon patient request if the prescription is for a schedule II opioid drug., 178, cm, 08/08/21 12:59:00 EDT, Height, 77, kg,... Start Date: 08/19/21 Status: Ordered Flonase 50 mcg/inh nasal spray 2 sprays, Nares, Both, Daily in AM, # 15.8 mL, 5 Refills, Maintenance, 10/29/21 8:58:00 EDT, [place],[facility]/pharmacy #[id number], Partial fill upon patient request if the prescription is for a schedule II opioid drug., 2 sprays Nares, Both Daily in AM, 178, cm,... Start Date: 10/29/21 Status: Ordered folic acid 1 mg oral tablet 1 mg, 1, tablet, By Mouth, Daily, # 90 tablet, Refills 1, Tot. Refills 1, Maintenance, 08/08/21 13:05:00 EDT, Route to Pharmacy Electronically, [facility]/pharmacy #[id number], Partial fill upon patient [...] tablet, 2 Refills, Maintenance, 08/08/21 13:08:00 EDT, [facility]/pharmacy #[id number], Partial fill upon patient request if the prescription is for a schedule... Start Date: 08/08/21 Status: Ordered naltrexone 50 mg oral tablet 1 tablet = 50 mg, By Mouth, Daily, # 30 tablet, 5 Refills, Maintenance, 10/29/21 8:57:00 EDT, Tablet, [facility]/pharmacy #[id number], Partial fill upon patient request if the prescription is for a schedule II opioid drug., 178, cm, 10/29/21 8:40:00 EDT, Height Start Date: 10/29/21 Status: Ordered nicotine 14 mg/24 hr transdermal film, extended release See Instructions, Apply patch to skin in morning and remove at bedtime., # 30 patch, 1 Refills, Maintenance, 02/06/22 16:32:00 EDT, [place], [place] - [id number], Partial fill upon patient request if the prescription is for a schedule... Start Date: 02/06/22 Status: Ordered Symbicort 160mcg/4.5mcg Inhaler 2, puffs, Inhalation, 2 times a day, # 1 each, Refills 5, Tot. Refills 5, Maintenance, 09/18/20 8:45:00 EDT, Aerosol, Route to Pharmacy Electronically, [id number], [facility]/pharmacy #[id number], 178, cm, 09/18/20 8:15:00 EDT, Height, 77... Start Date: 09/18/20 Status: Ordered thiamine 100 mg oral tablet 100 mg, 1, tablet, By Mouth, Daily, # 90 tablet, Refills 1, Tot. Refills 1, Maintenance, 08/08/21 13:05:00 EDT, Route to Pharmacy Electronically, [facility]/pharmacy #[id number], Partial fill upon patient requestif the prescription is for a schedule II opioid ayo... Start Date: 08/08/21 Status: Ordered Problem List Condition Confirmation Course [...] Active 1given comprehesive chol diet handout 2counsel [id number] Social History Social History Type Response Smoking Status 10 or more cigarette s (1/2 pack or more)/day in last 30 days entered on: 04/05/18 Sex Patient Care team information Personnel Name: Paulina BOWER, Rojelio Glover Address: Address: [address] [place] [address]
--- OUTSIDE RECORDS SUMMARY | 2022-12-21 14:28 | XMS_ITS | Continuity of Care Document ---
Author Name Unknown Organization [facility] Eric lt Address [address] [place] [address]- Care Team Providers Care Mortgage Analyst Name Role Phone Rojelio Gallardo MD Primary Care Physician [phone] Encounter [facility] Date(s): 04/05/21 - 04/12/21 [facility] Adult [address] [place] [address]- Attending Physician: Rojelio Gallardo MD Allergies, Adverse [...] (oldterm) 05/04/99 Given 1Result Comment: [04/05/2018] [facility] [id number] Medications Albuterol (Eqv-ProAir HFA) 90 mcg/inh inhalation aerosol 2 puffs, Inhalation, Every 6 hours, # 1 each, 1 Refills, Maintenance, 04/05/21 10:17:00 EST, [facility]/pharmacy #[id number], Partial fill upon patient request if the [...] 03/18/21 11:00:00 EST, Route to Pharmacy Electronically, [facility]/pharmacy #[id number], Partial fill upon patient request if the prescription is for a schedule II opioid drug.... Start Date: 03/18/21 Status: Ordered folic acid 1 mg oral tablet 1 mg, 1, tablet, By Mouth, Daily, # 30 tablet, Refills 5, Tot. Refills 5, Maintenance, 09/18/20 8:40:00 EDT, Route to Pharmacy Electronically, [facility]/pharmacy #[id number], Partial fill upon patient request ifthe [...] 1 Refills, Maintenance, 04/05/21 10:18:00 EST, Tablet, [facility]/pharmacy #[id number], Partial fill upon patient request if the prescription is for a schedule II opioid drug., 1 tablet By Mouth Daily, 178, cm, 04/05/21 10:0... Start Date: 04/05/21 Status: Ordered naltrexone 50 mg oral tablet 1 tablet = 50 mg, By Mouth, Daily, # 30 tablet, 1 Refills, Maintenance, 03/26/21 18:33:00 EST, Tablet, [facility]/pharmacy #[id number], Partial fill upon patient request if the prescription is for a schedule II opioid drug., 178, cm, 03/18/21 10:40:00 EST, Height,... Start Date: 03/26/21 Status: Ordered SLEEP AID SLEEP AID, Refills 0, Maintenance, 03/18/21 10:48:00 EST, Supply Start Date: 03/18/21 Status: Ordered Symbicort 160mcg/4.5mcg Inhaler 2, puffs, Inhalation, 2 times a day, # 1 each, Refills 5, Tot. Refills 5, Maintenance, 09/18/20 8:45:00 EDT, Aerosol, Route to Pharmacy Electronically, [id number], [facility]/pharmacy #[id number], 178, cm, 09/18/20 8:15:00 EDT, Height, 77... Start Date: 09/18/20 Status: Ordered thiamine 100 mg oral tablet 100 mg, 1, tablet, By Mouth, Daily, # 30 tablet, Refills 5, Tot. Refills 5, Maintenance, 03/18/21 11:01:00 EST, Route to Pharmacy Electronically, [facility]/pharmacy #[id number], Partial fill upon patient requestif the prescription is for a schedule II opioid ayo... Start Date: 03/18/21 Status: Ordered thiamine 100 mg oral tablet 100 mg, 1, tablet, By Mouth, Daily, # 30 tablet, Refills 5, Tot. Refills 5, Maintenance, 09/18/20 8:40:00 EDT, Route to Pharmacy Electronically, [facility]/pharmacy #[id number], Partial fill upon patient request [...] Active 1given comprehesive chol diet handout 2counsel [id number] Vital Signs Most recent to oldest [Reference Range]: 1 Height 178 cm (04/05/21 10:08 AM) Weight 78.1 kg (04/05/21 10:08 AM) Oxygen Saturation [94-100 %] 96 % (04/05/21 10:08 AM) Pulse Rate [55-90 bpm] 90 bpm (04/05/21 10:08 AM) Body Mass Index [18.5-24.99] 24.65 (04/05/21 10:08 AM) Blood Pressure [90-138/55-84 mm Hg] 128/ 78mm Hg (04/05/21 10:08 AM) Respiratory Rate [16-30 br/min] 16 br/mi n (04/05/21 10:08 AM) Temperature [96.8-100.4 DegF] 98.6 DegF (04/05/21 10:08 AM) Mode of Delivery (Oxygen) Room air (04/05/21 10:08 AM) Blood pressure sites Arm, right (04/05/21 10:08 AM) Temperature Route Oral (04/05/21 10:08 AM) Weight Obtained Via Standing scale (04/05/21 10:08 AM) Social History Social History Type Response Smoking Status 10 or more cigarette s (1/2 pack or more)/day in last 30 days entered on: 04/05/18 Sex
--- OUTSIDE RECORDS SUMMARY | 2022-12-21 14:28 | XMS_ITS | Continuity of Care Document ---
Author Name Unknown Organization [facility] Marcos Castillo Eric lt Address [address] [place] [address]- Care Team Providers Care Power Nut Runner Operator Name Role Phone Paulina BOWER, Rojelio Glover Primary Care Physician [phone] Encounter [facility] Date(s): 03/11/21 - 04/10/21 [facility] Adult [address] [place] [address]- Allergies, Adverse Reactions, Alerts Substance Reaction Severity [...] Comment: [04/05/2018] [facility] [id number] Medications Albuterol (Eqv-ProAir HFA) 90 mcg/inh inhalation aerosol 2 puffs, Inhalation, Every 6 hours, # 1 each, 1 Refills, Maintenance, 04/05/21 10:17:00 EST, [facility]/pharmacy #[id number], Partial fill upon patient request if the [...] 03/18/21 11:00:00 EST, Route to Pharmacy Electronically, [facility]/pharmacy #[id number], Partial fill upon patient request if the prescription is for a schedule II opioid drug.... Start Date: 03/18/21 Status: Ordered folic acid 1 mg oral tablet 1 mg, 1, tablet, By Mouth, Daily, # 30 tablet, Refills 5, Tot. Refills 5, Maintenance, 09/18/20 8:40:00 EDT, Route to Pharmacy Electronically, [facility]/pharmacy #[id number], Partial fill upon patient request ifthe [...] 1 Refills, Maintenance, 04/05/21 10:18:00 EST, Tablet, [facility]/pharmacy #[id number], Partial fill upon patient request if the prescription is for a schedule II opioid drug., 1 tablet By Mouth Daily, 178, cm, 04/05/21 10:0... Start Date: 04/05/21 Status: Ordered naltrexone 50 mg oral tablet 1 tablet = 50 mg, By Mouth, Daily, # 30 tablet, 1 Refills, Maintenance, 03/26/21 18:33:00 EST, Tablet, [facility]/pharmacy #[id number], Partial fill upon patient request if [...] 8:45:00 EDT, Aerosol, Route to Pharmacy Electronically, [id number], [facility]/pharmacy #[id number], 178, cm, 09/18/20 8:15:00 EDT, Height, 77... Start Date: 09/18/20 Status: Ordered thiamine 100 mg oral tablet 100 mg, 1, tablet, By Mouth, Daily, # 30 tablet, Refills 5, Tot. Refills 5, Maintenance, 03/18/21 11:01:00 EST, Route to Pharmacy Electronically, [facility]/pharmacy #[id number], Partial fill upon patient requestif the prescription is for a schedule II opioid ayo... Start Date: 03/18/21 Status: Ordered thiamine 100 mg oral tablet 100 mg, 1, tablet, By Mouth, Daily, # 30 tablet, Refills 5, Tot. Refills 5, Maintenance, 09/18/20 8:40:00 EDT, Route to Pharmacy Electronically, [facility]/pharmacy #[id number], Partial fill upon patient request if [...] Active 1given comprehesive chol diet handout 2counsel [id number] Social History Social History Type Response Smoking Status 10 or more cigarette s (1/2 pack or more)/day in last 30 days entered on: 04/05/18 Sex
--- OUTSIDE RECORDS SUMMARY | 2022-12-21 14:28 | XMS_ITS | Continuity of Care Document ---
Author Name Unknown Organization [facility] Eric lt Address [address] [place] [address]- Care Team Providers Care Transportation Agent Name Role Phone Rojelio Gallardo MD Primary Care Physician [place] [facility] 03[place]25[place]21 [facility] Adult [address] [place] [address]- Attending Physician: Rojelio Gallardo MD Allergies, Adverse [...] Vaccine (oldterm) 05/04/99 Given 1Result Comment: [04/05/2018] [facility][NOTE 3] [id number] Medications Albuterol (Eqv-ProAir HFA) 90 mcg/inh inhalation aerosol 2 puffs, Inhalation, Every 6 hours, # 1 each, 5 Refills, Maintenance, 09/18/20 8:44:00 EDT, [facility]/pharmacy #[id number], Partial fill upon patient request if the [...] 03/18/21 11:00:00 EST, Route to Pharmacy Electronically, [facility]/pharmacy #[id number], Partial fill upon patient request if the prescription is for a schedule II opioid drug.... Start Date: 03/18/21 Status: Ordered folic acid 1 mg oral tablet 1 mg, 1, tablet, By Mouth, Daily, # 30 tablet, Refills 5, Tot. Refills 5, Maintenance, 09/18/20 8:40:00 EDT, Route to Pharmacy Electronically, [facility]/pharmacy #[id number], Partial fill upon patient request ifthe prescription is for a schedule II opioid drug.,... Start Date: 09/18/20 Status: Ordered Ibuprofen Refills 0, Maintenance, 09/11/20 8:12:00 EDT, Partial fill upon patient request if the prescriptionis for a schedule II opioid drug. Start Date: 09/11/20 Status: Ordered SLEEP AID SLEEP AID, Refills 0, Maintenance, 03/18/21 10:48:00 EST, Supply Start Date: 03/18/21 Status: Ordered Symbicort 160mcg/4.5mcg Inhaler 2, puffs, Inhalation, 2 times a day, # 1 each, Refills 5, Tot. Refills 5, Maintenance, 09/18/20 8:45:00 EDT, Aerosol, Route to Pharmacy Electronically, [id number], [facility]/pharmacy #[id number], 178, cm, 09/18/20 8:15:00 EDT, Height, 77... Start Date: 09/18/20 Status: Ordered thiamine 100 mg oral tablet 100 mg, 1, tablet, By Mouth, Daily, # 30 tablet, Refills 5, Tot. Refills 5, Maintenance, 03/18/21 11:01:00 EST, Route to Pharmacy Electronically, [facility]/pharmacy #[id number], Partial fill upon patient requestif the prescription is for a schedule II opioid ayo... Start Date: 03/18/21 Status: Ordered thiamine 100 mg oral tablet 100 mg, 1, tablet, By Mouth, Daily, # 30 tablet, Refills 5, Tot. Refills 5, Maintenance, 09/18/20 8:40:00 EDT, Route to Pharmacy Electronically, [facility]/pharmacy #[id number], Partial fill upon patient request if the [...] Active 1given comprehesive chol diet handout 2counsel [id number] Vital Signs Most recent to oldest [Reference Range]: 1 Height 178 cm (03/18/21 10:40 AM) Weight 78.3 kg (03/18/21 10:40 AM) Oxygen Saturation [94-100 %] 96 % (03/18/21 10:40 AM) Pulse Rate [55-90 bpm] 120 bpm *H* (03/18/21 10:40 AM) Body Mass Index [18.5-24.99] 24.71 (03/18/21 10:40 AM) Blood Pressure [90-138/55-84 mm Hg] 94/6 2mm Hg (03/18/21 10:40 AM) Respiratory Rate [16-30 br/min] 18 br/mi n (03/18/21 10:40 AM) Temperature [96.8-100.4 DegF] 98.2 DegF (03/18/21 10:40 AM) Mode of Delivery (Oxygen) Room air (03/18/21 10:40 AM) Blood pressure sites Arm, left (03/18/21 10:40 AM) Temperature Route Oral (03/18/21 10:40 AM) Weight Obtained Via Standing scale (03/18/21 10:40 AM) Social History Social History Type Response Smoking Status 10 or more cigarette s (1/2 pack or more)/day in last 30 days entered on: 04/05/18 Sex
--- OUTSIDE RECORDS SUMMARY | 2022-12-21 14:28 | XMS_ITS | Continuity of Care Document ---
Author Name Unknown Organization [facility] Address [address] [place] [address], [address] [place] [address]- Care Team Providers Care Mold Clamper Name Role Phone Paulina BOWER, Rojelio Glover Primary Care Physician [phone] Encounter [facility] Date(s): 09/02/22 - 09/09/22 [facility] Thoracic Surgery [address] [place] [address], [address] [place] [address]- Attending Physician: Mallory Cevallos MD Referring Physician: Rojelio Gallardo MD Allergies, Adverse [...] Vaccine (oldterm) 05/04/99 Given 1Result Comment: [04/05/2018] [facility] [id number] Medications acetaminophen 325 mg oral tablet 975 mg, By Mouth, Once, PRN, Refills 0, Maintenance, Pain , Moderate, 09/05/22 16:50:00 EDT, Partial fill upon patient request if the prescription is for a schedule II opioid drug. Start Date: 09/05/22 Status: Ordered Albuterol (Eqv-ProAir HFA) 90 mcg/inh inhalation aerosol 2 puffs, Inhalation, Every 6 hours, # 1 each, 1 Refills, Maintenance, 12/03/21 10:17:00 EST, [id number], Partial fill upon [...] # 90 tablet, 1 Refills, [id number], 90, TAKE 1 TABLET BY MOUTH EVERY [...] Refills, Maintenance, 07/11/22 13:19:00 EST, [facility], 178, cm, 11/29/21 11:03:00 EDT, Height Start Date: 07/11/22 Status: Ordered Flonase 50 mcg/inh nasal spray 2 sprays, Nares, Both, Daily in AM, # 15.8 mL, 5 Refills, Maintenance, 10/29/21 8:58:00 EDT, [place],[id number], Partial fill upon patient request if the prescription is for a schedule II opioid drug., 2 sprays Nares, Both Daily in AM, 178, cm,... Start Date: 10/29/21 Status: Ordered folic acid 1 mg oral tablet 1 mg, 1, tablet, By Mouth, Daily, # 90 tablet, Refills 1, Tot. Refills 1, Maintenance, 08/08/21 13:05:00 EDT, [id number] Partial fill upon patient request if [...] 1 Refills, Maintenance, 08/05/22 10:01:00 EDT, [id number] Partial fill upon patient request if the prescription is for a schedule II opioid drug., 178, cm, 08/05/22 9:49:00 ED... Start Date: 08/05/22 Status: Ordered naltrexone 50 mg oral tablet 1 tablet = 50 mg, By Mouth, Daily, # 30 tablet, 5 Refills, Maintenance, 10/29/21 8:57:00 EDT, Tablet, [facility] #[id number], Partial fill upon patient request if the prescription is for a schedule II opioid drug., 178, cm, 10/29/21 8:40:00 EDT, Height Start Date: 10/29/21 Status: Ordered oxyCODONE 5 mg oral tablet 5 mg, By Mouth, Every 6 hours, PRN, # 10 tablet, Refills 0, Tot. Refills 0, Soft Stop, Pain , Moderate, 09/05/22 16:56:00 EDT, Route to Pharmacy Electronically, [facility], Partial fillupon patient request if the prescription is for a s... Start Date: 09/05/22 Stop Date: 09/07/22 Status: Ordered Symbicort 160mcg/4.5mcg Inhaler 2, puffs, Inhalation, 2 times a day, # 1 each, Refills 5, Tot. Refills 5, Maintenance, 09/18/20 8:45:00 EDT, Aerosol, Route to Pharmacy Electronically, [id number], [facility]/pharmacy #[id number], 178, cm, 09/18/20 8:15:00 EDT, [...] Active 1given comprehesive chol diet handout 2counsel [id number] Vital Signs Most recent to oldest [Reference Range]: 1 Height 180 cm (09/02/22 2:27 PM) Weight 95.5 kg (09/02/22 2:27 PM) Oxygen Saturation [94-100 %] 96 % (09/02/22 2:27 PM) Pulse Rate [55-90 bpm] 99 bpm *H* (09/02/22 2:27 PM) Body Mass Index [18.5-24.99 kg/m2] 29.48 kg/m2 *H* (09/02/22 2:27 PM) Blood Pressure [90-138/55-84 mm Hg] 136/ 93mm Hg (09/02/22 2:27 PM) Respiratory Rate [16-30 br/min] 18 br/mi n (09/02/22 2:27 PM) Temperature [96.8-100.4 DegF] 97.2 DegF (09/02/22 2:27 PM) Mode of Delivery (Oxygen) Room air (09/02/22 2:27 PM) Blood pressure sites Arm, right (09/02/22 2:27 PM) Temperature Route Temporal (09/02/22 2:27 PM) Weight Obtained Via Standing scale (09/02/22 2:27 PM) Social History Social History Type Response Smoking Status 10 or more cigarette s (1/2 pack or more)/day in last 30 days entered on: 04/05/18 Sex Patient Care team information Care Team Personnel Name: Paulina BOWER, Rojelio Glover Position: S Primary Care Physician Member Role: PCP Address: Address: [address] [place] [address]- [place] Care Team Related Persons Name: LIZETTE RAMIREZ Address: home [address] [place] [address] Name: HAILEY JOHNSON Address: [place] [address]
--- OUTSIDE RECORDS SUMMARY | 2022-12-21 14:28 | XMS_ITS | Continuity of Care Document ---
Author Name Unknown Organization [facility] ter Address [address] [place] [address]- Care Team Providers Care Control Clerk Repairs Name Role Phone Paulina BOWER, Rojelio Glover Primary Care Physician [phone] Encounter [facility] Date(s): 09/05/22 - 09/05/[address] [address] Discharge Disposition: A-D/C Home Attending Physician: Mallory Cevallos MD Admitting Physician: Mallory Cevallos MD Referring Physician: Mallory Cevallos MD Allergies, Adverse [...] influenza virus vaccine, inactivated 1 04/05/18 Gi puvri Tetanus Toxoid Vaccine (oldterm) 05/04/99 Given 1Result Comment: [04/05/2018] [facility] [id number] Medications acetaminophen 325 mg oral tablet 975 [...] Mouth, Daily, # 90 tablet, 1 Refills, [facility], 90, TAKE 1 TABLET BY MOUTH EVERY [...] tablet, 1 Refills, Maintenance, 07/11/22 13:19:00 EST, [facility], 178, cm, 11/29/21 11:03:00 EDT, Height Start Date: 07/11/22 Status: Ordered Flonase 50 mcg/inh nasal spray 2 sprays, Nares, Both, Daily in AM, # 15.8 mL, 5 Refills, Maintenance, 10/29/21 8:58:00 EDT, [id number], Partial fill upon patient request if the prescription is for a schedule II opioid drug., 2 sprays Nares, Both Daily in AM, 178, cm,... Start Date: 10/29/21 Status: Ordered folic acid 1 mg oral tablet 1 mg, 1, tablet, By Mouth, Daily, # 90 tablet, Refills 1, Tot. Refills 1, Maintenance, 08/08/21 13:05:00 EDT, Route to Pharmacy Electronically, [id number], Partial fill upon patient request if [...] 1 Refills, Maintenance, 08/05/22 10:01:00 EDT, Tablet, [facility] #[id number], Partial fill upon patient request if the prescription is for a schedule II opioid drug., 178, cm, 08/05/22 9:49:00 ED... Start Date: 08/05/22 Status: Ordered naltrexone 50 mg oral tablet 1 tablet = 50 mg, By Mouth, Daily, # 30 tablet, 5 Refills, Maintenance, 10/29/21 8:57:00 EDT, Tablet, [facility]/pharmacy #[id number], Partial fill upon patient request if the prescription is for a schedule II opioid drug., 178, cm, 10/29/21 8:40:00 EDT, Height Start Date: 10/29/21 Status: Ordered oxyCODONE 5 mg oral tablet 5 mg, By Mouth, Every 6 hours, PRN, # 10 tablet, Refills 0, Tot. Refills 0, Soft Stop, Pain , Moderate, 09/05/22 16:56:00 EDT, Route to Pharmacy Electronically, [facility], Partial fillupon patient request if the prescription is for a s... Start Date: 09/05/22 Stop Date: 09/07/22 Status: Ordered Symbicort 160mcg/4.5mcg Inhaler 2, puffs, Inhalation, 2 times a day, # 1 each, Refills 5, Tot. Refills 5, Maintenance, 09/18/20 8:45:00 EDT, Aerosol, Route to Pharmacy Electronically, [id number], [facility]/pharmacy #[id number], 178, cm, 09/18/20 8:15:00 EDT, Height, [...] Active 1given comprehesive chol diet handout 2counsel [id number] Results Radiology Reports * Exam Date Time Procedure Performing Provider Status 09/05/22 5:27 PM Chest Portable Jamie Dupree; Ava (Anna ified) Notes: (Chest Portable) Reason For Exam: Other: RESULT: Chest Portable Chest Portable Reason: Post-op COMPARISON: CT 08/26/2022. FINDINGS: LINES AND TUBES: External lead wires are overlying the chest. LUNGS AND PLEURA: Lobulated mass projecting within the left upper lobe is not significantly changed. Additional smaller nodules seen previously on CT in both lungs are not significantly changed in the left apparent due to differences in technique. No superimposed consolidation or volume loss. No pleural effusion. No pneumothorax. HEART, MEDIASTINUM AND MARCIA: Heart is normal in size. Stable prominence of marcia, right greater than left which may be due to lymph nodes.. BONES AND SOFT TISSUES: No acute abnormality. IMPRESSION: No evidence of acute cardiopulmonary pathology. No effusion or pneumothorax. Inferolateral left upper lobe mass not significantly changed from CT. WSN: [id number] Ordering Physician: Cindy Arevalo Dictated By: Johnny Torrez MD Dictated Date/Time: 09/05/22 5:23 pm Reviewed By: Johnny Torrez MD Signed By: Johnny Torrez MD Signed Date/Time: 09/05/22 5:23 pm Transcribed By: CSB Transcribed Date/Time: 09/05/22 5:21 pm Vital Signs Most recent to oldest [Reference Range]: 1 2 3 4 Height 180 cm (09/05/22 11:30 AM) 180 cm (09/04/22 11:46 AM) Weight 91.9 kg (09/05/22 11:30 AM) 95.5 kg (09/04/22 11:46 AM) Oxygen Saturation [94-100 %] 93 % *L* (09/05/22 6:30 PM) 94 % (09/05/22 6:00 PM) 95 % (09/05/22 5:45 PM) 95 % (09/05/22 5:45 PM) Pulse Rate [55-90 bpm] 103 bpm *H* (09/05/22 11:30 AM) Body Mass Index [18.5-24.99 kg/m2] 28.36 kg/m2 *H* (09/05/22 11:30 AM) 29.48 kg/m2 *H* (09/04/22 11:46 AM) Blood Pressure [90-138/55-84 mm Hg] 131/92mm Hg (09/05/22 6:30 PM) 136/88mm Hg (09/05/22 6:00 PM) 157/138mm Hg *H* (09/05/22 5:45 PM) Respiratory Rate [16-30 br/min] 19 br/min (09/05/22 6:30 PM) 16 br/min (09/05/22 6:00 PM) 17 br/min (09/05/22 5:45 PM) 17 br/min (09/05/22 5:45 PM) Temperature [96.8-100.4 DegF] 97.8 DegF (09/05/22 5:45 PM) 96.9 DegF (09/05/22 4:45 PM) 97.6 DegF (09/05/22 11:30 AM) Liters per Minute 6 L/min (09/05/22 4:45 PM) Mode of Delivery (Oxygen) Room air (09/05/22 5:45 PM) Room air (09/05/22 5:45 PM) Room air (09/05/22 5:00 PM) Room air (09/05/22 5:00 PM) Blood pressure sites Arm, right (5/5/23 11:30 AM) Temperature Route Temporal (09/05/22 4:45 PM) Temporal (09/05/22 11:30 AM) Dry Weight 91.9 kg (09/05/22 11:30 AM) 95.5 kg (09/04/22 11:46 AM) Weight Obtained Via Standing scale (09/05/22 11:30 AM) Patient/family stated (09/04/22 11:46 AM) Dry Weight Obtained Via Standing scale (09/05/22 11:30 AM) Patient/family stated (09/04/22 11:46 AM) Social History Social History Type Response Smoking Status 10 or more cigarette s (1/2 pack or more)/day in last 30 days entered on: 04/05/18 Sex Note * Jennifer Nicholas RN: PERFORM Event Display: Discharge/Transfer Note Hospital Authored Date: [id number] Nursing Discharge Note Entered On: 09/05/2022 18:57 EDT Performed On: 09/05/2022 18:57 EDT by Jennifer Nicholas RN Nursing Discharge Note 2 Discharge Time : 09/05/2022 18:52 EDT Discharge Level of Care at Discharge : Home/Residential/Foster Care Patient Left Unit Via : Wheelchair Patient Accompanied Off Unit with : Responsible adult DC Instructions Provided & Signed by Pt : Yes Patient Understands D/C Instructions : Yes Verbalized Understanding of D/C Plan By : Family Patient Instructions Discharge Signed : Yes Did Pt have Specialty Bed or Wound Vac : No Jennifer Nicholas RN - 09/05/2022 18:57 EDT * Jennifer Nicholas RN: PERFORM Event Display: Patient Education/Instruction Authored Date: [id number] Inpatient Adult Discharge Instructions [address] [id number] Name: LAVERN BAHENA : 1970 Visit: 09/05/2022 10:43:00 Current Date: 09/05/2022 18:38 Account: [id number] Inpatient Adult Discharge Instructions We would like [...] and their families. Surveys are administered by [employer] ?? If further treatment with your primary care physician or another doctor is recommended, it is important for you to keep the appointment. Call your primary care physician or return to the Emergency Department immediately if your condition worsens, fails to improve, or new symptoms develop. If you need to find a doctor, you can call [facility] [employer] for a referral at [phone] or toll free at [phone] ([phone]) or log in to [email or web address].. ?? You can view and manage your care through the patient portal or by using a health care juan of your choosing. [employer] is a website that allows you to securely view your medical information including your hospital discharge summary, office visit summaries, medications and follow-up visits. You can also request appointments, renew medications, and request access to your medical information using a health care juan of your choosing, or just ask a question. You can enroll at [email or web address] or register during your next office visit. You have been discharged from [facility], Patient Care Unit: PANU. If you have any questions regarding these instructions after you leave, please call us and we will be happy to assist you. [facility] Your Care Team Attending Physician Mallory Cevallos MD Consulting Providers Yanet BOWER, Mallory Beck MD Discharging Providers Mickey BOWER, Cindy Bowen Reason for Your Visit LUNG MASS CMEDS BMCIOR Tests Performed Below is a partial list of the tests performed during your hospitalization. You may have had other tests and procedures not included in this list. Please discuss all test results with your provider. CBC HOLD BLUE TUBE PT (INR) Type and Screen XR Chest Portable Primary Care Provider Rojelio Gallardo MD Advance Directive . Discharge Vitals Temperature: 97.8 DegF Height: 180 cm Pulse Rate:??103 bpm??High Weight: 91.9 kg Respiratory Rate: 16 br/min Body Mass Index:??28.36 kg/m2??High Systolic Blood Pressure: 136 mm Hg Body surface area: 2.14 Diastolic Blood Pressure:??88 mm Hg??High ?? Oxygen Saturation: 94 % ?? Studies Pending All tests and labs ordered during this hospital stay have been completed unless listed below. Please discuss all pending results with your provider listed above in these instructions. ?? CBC Pathology Tissue Request () What to do next Instructions From Your Doctor Discharge Orders Ok to shower tommorow You Need to Schedule the Following Appointments Follow Up with??[facility] Referral [phone] When?? Follow Up with??Ban BOWER, Mallory Abebe When??Within 1 to 2 weeks Why: Please call the thoracic surgery office to schedule your follow up appointment. Where: [address] [place] [address] Drive [address] [facility] [place] [address]- Discharge Medications LAVERN BAHENA :1970 Visit Date:09/05/2022 Medications: Please continue your medications until treatment is completed or stopped by your provider. Medications not listed below should be discontinued. Discuss any questions related to medications with your provider. What How Much When Instructions Next Dose New Acetaminophen (acetaminophen 325 mg oral tablet) 975 Milligram Oral Once as needed for Pain , Moderate not given in PACU take as need for pain New Oxycodone (oxyCODONE 5 mg oral tablet) 5 Milligram Oral Every 6 hours as needed for Pain , Moderate Pickup at [facility] not given in PACU take as need for pain Unchanged Albuterol (Albuterol (Eqv-ProAir HFA) 90 mcg/ inh inhalation aerosol) 2 puff(s) Inhalation Every 6 hours Unchanged apixaban (Eliquis Starter Pack 5 mg oral tablet) 2 tab(s) Oral Twice a day Duration: 7 Days followed by 1 tablet by mouth twice daily for 23 days ?? Unchanged Betamethasone-Clotrimazole Topical (betamethasone-clotrimazole 0.05%- 1% topical cream) See instructions Apply gentle coat apply twice daily and then wash hands ?? Unchanged Budesonide-Formoterol (Symbicort 160mcg/ 4.5mcg Inhaler) 2 puff(s) Inhalation Twice a day Unchanged Cannabis (Schedule I Substance) Unchanged Escitalopram (escitalopram 20 mg oral tablet) 1 tab(s) Oral Daily Unchanged Fluticasone Nasal (Flonase 50 mcg/ inh nasal spray) 2 spray(s) Nares, Both Daily in the morning Unchanged Folic Acid (folic acid 1 mg oral tablet) 1 tab(s) Oral Daily Unchanged Ibuprofen Unchanged Mirtazapine (mirtazapine 30 mg oral tablet) 1 tab(s) Oral Daily at Bedtime Unchanged Multivitamin (Daily Meg oral tablet) 1 tab(s) Oral Daily Unchanged Naltrexone (naltrexone 50 mg oral tablet) 1 tab(s) Oral Daily Pharmacy Information [facility] 3: [address] [place], [place] [id number] [phone] Test Results Below is a partial list of the most recent Laboratory test results done prior to this discharge. You may have had other tests and procedures not included in this list. Please discuss all test resultswith your provider. CBC (09/05/2022) ???WBC - 9.0 k/mm3???RBC - 4.62 m/mm3???Hgb - 14.8 Gm/dL???Hct - 46.6 %???MCV - 100.9 femtoliters???MCH - 32.0 pg???MCHC - 31.8 g/dL???Platelet Count - 173 k/mm3???RDW-SD - 53.4 femtoliters???MPV - 9.5 femtoliters???Nucleated RBC (Automated) - 0.0 #/100 WBC'S???Abs. NRBC - 0.0 k/mm3 HOLD BLUE TUBE (09/05/2022) ???Hold Blue Top - SPECIMEN DISCARDED AFTER 4 HOURS. PT (INR) (09/05/2022) ???INR - 1.2???Protime (PT) - 12.2 seconds Type and Screen (09/05/2022) ???Blood Type - O Positive???Antibody Screen - Negative Allergies (NKA means No Known Allergies) No Known Medication Allergies Other Environmental Allergy??(POLLEN) Problems Active Problems??(13) Alcoholism?? Concussion?? COPD (chronic obstructive pulmonary disease)?? Elevated liver enzymes?? Fatty liver?? Hyperlipidemia?? Lateral epicondylitis of right elbow?? Low back pain?? Major depression?? Major depression?? Marijuana use?? Recovering alcoholic?? Tobacco abuse?? Education Materials Below is the list of Educational Leaflet Providered with your Discharge Instructions. Surgery Medical Daystay Surgical Overnight Discharge Instructions?? Valuables and Belongings I fully understand and agree that [facility] accepts no responsibility for all my personal [...] Review of Valuable and Belonging List: With patient Possessions released to: PACU Date for Pt to Sign Valuables/Belongings: 09/05/22 11:52:00 ?? Valuables & Belongings ?? Clothes Electronic devices Jewelry Monetary Items Personal devices Miscellaneous Medications (Valuables) Valuables at Bedside Jacket, Pants, Shirt, Shoes, Undergarments ? Valuables Sent Home ? Valuables Sent to Security ? Other Discharge Information ? Pulmonary Rehab Status?? Pulmonary Rehab Discharge Status?? Respiratory Rate: 16 br/min ? Common Emergency Awareness Tips IS [...] are strongly encouraged to quit. Please call [facility] [employer] at [phone] or [phone] ([phone]) or log in to [email or web address] for referrals to smoking cessation programs. ?? 339 Suicide & Crisis Lifeline is available 24/11 if you or someone you know needs to find a reason to keep living. By calling 041 you'll be connected to a skilled, trained counselor at a crisis center in your area. INPATIENT DISCHARGE INSTRUCTIONS SIGNATURE BRIANNA LAVERN BAHENA Location:[facility] Registration Date and Time:09/05/2022 10:43 EDT Primary Care Physician: Paulina BOWER, Rojelio Glover, I LAVERN BAHENA, have received the above patient education materials/instructions and have verbalized understanding. If ambulance or transport services are being used I further acknowledge being given a choice of service. ?? If you need to contact me, please call me at this number: . Patient/Skiagrapher Name: Patient/Skiagrapher Signature: Relationship to Patient: Witness Name/Signature: Date: * Jennifer Nicholas RN: PERFORM Event Display: Patient Education Leaflets Authored Date: [id number] Surgery Medical Daystay Surgical Overnight Discharge Instructions ?? 295 Medical Daystay/Surgical Overnight Discharge Instructions ? Since your coordination and judgment may be altered by medication and/or anesthesia, a responsible adult must drive you home from the hospital. ? If you have received medication for pain or sedation while under our care, you should not drive, operate machinery, drink alcohol, or sign any legal documents for 24 hours.?? You should have someone with you at home tonight. ? Remain at home the day of discharge.?? You may be up and about unless otherwise instructed by your physician. ? You may resume your daily prescription medication schedule.?? Any depressant medication should be avoided for 24 hours unless otherwise instructed by your surgeon or anesthesiologist. ? Call your physician for a follow-up appointment.? If you experience unusual or severe pain not relied by your pain medication, excessive bleedingor drainage, persistent nausea and vomiting, excessive swelling or redness, foul odor from incisionsite or fever over 100.6F, you need to call your physician. ? A follow-up phone call by a nurse will be made the day after your procedure.?? If you have stayed with us over night, you will not be receiving a follow-up phone call. ? Nausea and vomiting are a common side effect of prescription pain medication.?? We recommend that pills are not taken on an empty stomach.?? While taking any prescription pain medication you should not drive or drink alcohol. ? Portable XR Chest Views * [employer] , CIS S: TRANSCRIBE Shan BOWER, Johnny Garcia: VERIFY Event Display: Result: Authored Date: [id number] Chest Portable Reason: Post-op COMPARISON: CT 08/26/2022. FINDINGS: LINES AND TUBES: External lead wires are overlying the chest. LUNGS AND PLEURA: Lobulated mass projecting within the left upper lobe is not significantly changed. Additional smaller nodules seen previously on CT in both lungs are not significantly changed in the left apparent due to differences in technique. No superimposed consolidation or volume loss. No pleural effusion. No pneumothorax. HEART, MEDIASTINUM AND MARCIA: Heart is normal in size. Stable prominence of marcia, right greater than left which may be due to lymph nodes.. BONES AND SOFT TISSUES: No acute abnormality. IMPRESSION: No evidence of acute cardiopulmonary pathology. No effusion or pneumothorax. Inferolateral left upper lobe mass not significantly changed from CT. WSN: [id number] Ordering Physician: Cindy Arevalo Dictated By: Johnny Torrez MD Dictated Date/Time: 09/05/22 5:23 pm Reviewed By: Johnny Torrez MD Signed By: Jhonny Torrez MD Signed Date/Time: 09/05/22 5:23 pm Transcribed By: PATRICIA Transcribed Date/Time: 09/05/22 5:21 pm Patient Care team information Care Team Personnel Name: Paulina BOWER, Rojelio Glover Position: S Primary Care Physician Member Role: PCP Address: Address: [address] [place] [address]- [place] Care Team Related Persons Name: LIZETTE RAMIREZ Address: home [address] [place] [id number] Name: HAILEY JOHNSON Address: [place] [address]
--- OUTSIDE RECORDS SUMMARY | 2022-12-21 14:28 | XMS_ITS | Continuity of Care Document ---
Author Name Unknown Organization [facility] Eric lt Address [address] [place] [address]- Care Team Providers Care Gasoline Service Attendant Name Role Phone Rojelio Gallardo MD Primary Care Physician [place] [facility] [place] 11[place]/21 [facility] [address] [place] [address]- Attending Physician: Rojelio Gallardo MD Allergies, Adverse [...] Vaccine (oldterm) 05/04/99 Given 1Result Comment: [04/05/2018] [facility] [id number] Medications Albuterol (Eqv-ProAir HFA) 90 mcg/inh inhalation aerosol 2 puffs, Inhalation, Every 6 hours, # 1 each, 1 Refills, Maintenance, 04/05/21 10:17:00 EST, [facility]/pharmacy #[id number], Partial fill upon patient request if the prescription is for a schedule II opioid drug., 2 puffs Inhalation Every 6 hours, 178, cm, 04/05/... Start Date: 04/05/21 Status: Ordered Cannabis (Schedule I Substance) 0 Refills, Maintenance, 04/05/18 8:17:12 EST Start Date: 04/05/18 Status: Ordered Daily Meg oral tablet 1 tablet, By Mouth, Daily, # 90 tablet, 1 Refills, [facility] ST[id number], 90, TAKE 1 TABLET BY MOUTH EVERY DAY, 178, cm, 08/08/21 12:59:00 EDT, Height Start Date: 10/17/21 Status: Ordered escitalopram 20 mg oral tablet 1 tablet = 20 mg, By Mouth, Daily, # 90 tablet, 1 Refills, Maintenance, 08/19/21 13:44:00 EDT, [facility]/pharmacy #[id number], Partial fill upon patient request if the prescription is for a schedule II opioid drug., 178, cm, 08/08/21 12:59:00 EDT, Height, 77, kg,... Start Date: 08/19/21 Status: Ordered Flonase 50 mcg/inh nasal spray 2 sprays, Nares, Both, Daily in AM, # 15.8 mL, 5 Refills, Maintenance, 10/29/21 8:58:00 EDT, [place],[facility]/pharmacy #[id number], Partial fill upon patient request if the prescription is for a schedule II opioid drug., 2 sprays Nares, Both Daily in AM, 178, cm,... Start Date: 10/29/21 Status: Ordered folic acid 1 mg oral tablet 1 mg, 1, tablet, By Mouth, Daily, # 90 tablet, Refills 1, Tot. Refills 1, Maintenance, 08/08/21 13:05:00 EDT, Route to Pharmacy Electronically, [facility]/pharmacy #[id number], Partial fill upon [...] tablet, 2 Refills, Maintenance, 08/08/21 13:08:00 EDT, [facility]/pharmacy #[id number], Partial fill upon patient request if the prescription is for a schedule... Start Date: 08/08/21 Status: Ordered naltrexone 50 mg oral tablet 1 tablet = 50 mg, By Mouth, Daily, # 30 tablet, 5 Refills, Maintenance, 10/29/21 8:57:00 EDT, Tablet, [facility]/pharmacy #[id number], Partial fill upon patient request if the prescription is for a schedule II opioid drug., 178, cm, 10/29/21 8:40:00 EDT, Height Start Date: 10/29/21 Status: Ordered Symbicort 160mcg/4.5mcg Inhaler 2, puffs, Inhalation, 2 times a day, # 1 each, Refills 5, Tot. Refills 5, Maintenance, 09/18/20 8:45:00 EDT, Aerosol, Route to Pharmacy Electronically, [id number], [facility]/pharmacy #[id number], 178, cm, 09/18/20 [...] Active 1given comprehesive chol diet handout 2counsel [id number] Vital Signs Most recent to oldest [Reference Range]: 1 Height 178 cm (10/29/21 8:40 AM) Weight 79.7 kg (10/29/21 8:40 AM) Oxygen Saturation [94-100 %] 97 % (10/29/21 8:40 AM) Pulse Rate [55-90 bpm] 69 bpm (10/29/21 8:40 AM) Body Mass Index [18.5-24.99] 25.15 *H* (10/29/21 8:40 AM) Blood Pressure [90-138/55-84 mm Hg] 104/ 76mm Hg (10/29/21 8:40 AM) Temperature [96.8-100.4 DegF] 97.1 DegF (10/29/21 8:40 AM) Mode of Delivery (Oxygen) Room air (10/29/21 8:40 AM) Blood pressure sites Arm, right (10/29/21 8:40 AM) Temperature Route Oral (10/29/21 8:40 AM) Weight Obtained Via Standing scale (10/29/21 8:40 AM) Social History Social History Type Response Smoking Status 10 or more cigarette s (1/2 pack or more)/day in last 30 days entered on: 04/05/18 Sex
--- OUTSIDE RECORDS SUMMARY | 2022-12-21 14:28 | XMS_ITS | Continuity of Care Document ---
Author Name Unknown Organization [facility] Eric lt Address [address] [place] [address]- Care Team Providers Care Software Applications Developer Name Role Phone Rojelio Gallardo MD Primary Care Physician [phone] Encounter [facility] [place] Date(s): 06/17/19 - 06/24/19 [facility] Adult [address] [place] [address]- [facility] Attending Physician: Rojelio Gallardo MD Allergies, Adverse Reactions, Alerts Substance Reaction Severity Status NKA Active Immunizations Given and Recorded Vaccine Date Status Refusal Reason tetanus/diphtheria/pertussis, acel(Tdap) 03/24/19 Given tetanus/diphtheria/pertussis, acel(Tdap) 03/22/09 Given influenza virus vaccine, inactivated 03/24/19 Give n influenza virus vaccine, inactivated 1 04/05/18 Gi purvi Tetanus Toxoid Vaccine (oldterm) 05/04/99 Given 1Result Comment: [04/05/2018] [facility] [id number] Medications albuterol CFC free 90 mcg/inh inhalation aerosol See Instructions, # 18 Unknown, Refills 5 Tot. Refills 5, TAKE 2 PUFFS EVERY 6 HOURS, [facility]/pharmacy #[id number] Start Date: 11/12/18 Status: Ordered Cannabis (Schedule I Substance) 0 Refills, Maintenance, 04/05/18 8:17:12 EST Start Date: 04/05/18 Status: Ordered escitalopram 10 mg oral tablet 1 tablet = 10 mg, By Mouth, Daily, # 30 tablet, 5 Refills, Maintenance, 10/20/18 11:55:28 EDT, Tablet Start Date: 10/20/18 Status: Ordered folic acid 1 mg oral tablet 1 mg, 1, tablet, By Mouth, Daily, # 30 tablet, Refills 5, Tot. Refills 5, Maintenance, 11/19/18 13:19:18 EDT, Route to Pharmacy Electronically, [id number], [facility]/pharmacy #[id number] Start Date: 11/19/18 Status: Ordered [...] 11/19/18 13:18:27 EDT, Route to Pharmacy Electronically, [id number], [facility]/pharmacy #[id number] Start Date: 11/19/18 Status: Ordered [...] Active 1given comprehesive chol diet handout 2counsel [id number] Vital Signs Most recent to oldest [Reference Range]: 1 2 Height 178.8 cm (06/17/19 10:24 AM) 178.8 cm (06/17/19 10:05 AM) Weight 84.6 kg (06/17/19 10:05 AM) Oxygen Saturation [94-100 %] 97 % (06/17/19 10:05 AM) Pulse Rate [55-90 bpm] 121 bpm *H* (06/17/19 10:05 AM) Body Mass Index [18.5-24.99] 26.46 *H* (06/17/19 10:05 AM) Blood Pressure [90-138/55-84 mm Hg] 130/ 60mm Hg (06/17/19 10:24 AM) 144/62mm Hg *H* (06/17/19 10:05 AM) Temperature [96.8-100.4 DegF] 98.5 DegF (06/17/19 10:05 AM) Mode of Delivery (Oxygen) Room air (06/17/19 10:05 AM) Blood pressure sites Arm, left (06/17/19 10:05 AM) Temperature Route Oral (06/17/19 10:05 AM) Weight Obtained Via Standing scale (06/17/19 10:05 AM) Social History Social History Type Response Smoking Status 10 or more cigarette s (1/2 pack or more)/day in last 30 days entered on: 04/05/18 Sex
--- OUTSIDE RECORDS SUMMARY | 2022-12-21 14:28 | XMS_ITS | Continuity of Care Document ---
Author Name Unknown Organization [facility] Eric lt Address [address] [place] [address]- Care Team Providers Care Teller Name Role Phone Paulina BOWER, Rojelio Glover Primary Care Physician Encounter [facility] [place] Date(s): 05/16/21 - 06/15/21 [facility] Adult [address] [place] [address]- Allergies, Adverse Reactions, Alerts Substance Reaction Severity [...] 05/04/99 Given 1Result Comment: [04/05/2018] [facility] [id number] Medications Albuterol (Eqv-ProAir HFA) 90 mcg/inh inhalation aerosol 2 puffs, Inhalation, Every 6 hours, # 1 each, 1 Refills, Maintenance, 04/05/21 10:17:00 EST, [facility]/pharmacy #[id number], Partial fill upon patient request if the prescription is for a schedule II opioid drug., 2 puffs Inhalation Every 6 hours, 178, cm, 04/05/... Start Date: 04/05/21 Status: Ordered Cannabis (Schedule I Substance) 0 Refills, Maintenance, 04/05/18 8:17:12 EST Start Date: 04/05/18 Status: Ordered escitalopram 10 mg oral tablet 1 tablet = 10 mg, By Mouth, Daily, # 30 tablet, 5 Refills, Maintenance, 05/21/21 11:48:00 EST, [facility]/pharmacy #[id number], Partial fill upon patient request if the prescription is for a schedule II opioid drug., 178, cm, 05/17/21 7:39:00 EST, Height, 77, kg,... Start Date: 05/21/21 Status: Ordered folic acid 1 mg oral [...] 8:45:00 EDT, Aerosol, Route to Pharmacy Electronically, [id number], [facility]/pharmacy #[id number], 178, cm, 09/18/20 8:15:00 EDT, Height, 77... Start Date: 09/18/20 Status: Ordered thiamine 100 mg oral tablet 100 mg, 1, tablet, By Mouth, Daily, # 30 tablet, Refills 5, Tot. Refills 5, Maintenance, 03/18/21 11:01:00 EST, Route to Pharmacy Electronically, [facility]/pharmacy #[id number], Partial fill upon patient requestif the prescription is for a schedule II opioid ayo... Start Date: 03/18/21 Status: Ordered thiamine 100 mg oral tablet 100 mg, 1, tablet, By Mouth, Daily, # 30 tablet, Refills 5, Tot. Refills 5, Maintenance, 09/18/20 8:40:00 EDT, Route to Pharmacy Electronically, [facility]/pharmacy #[id number], Partial fill upon patient [...] Active 1given comprehesive chol diet handout 2counsel [id number] Social History Social History Type Response Smoking Status 10 or more cigarette s (1/2 pack or more)/day in last 30 days entered on: 04/05/18 Sex
--- OUTSIDE RECORDS SUMMARY | 2022-12-21 14:28 | XMS_ITS | Continuity of Care Document ---
Author Name Unknown Organization [facility] Address [address] [place] [address] [address], [address] [place] [address]- Care Team Providers Care Cylinder Grinder Name Role Phone Paulina BOWER, Rojelio Glover Primary Care Physician Encounter [facility] Date(s): 10/10/22 - 11/09/22 [facility] [address] [place] [address], [address] [place] [address]- Allergies, Adverse Reactions, Alerts No Known Medication [...] Given 1Result Comment: [04/05/2018] [facility] [id number] Medications acetaminophen 325 mg oral tablet 975 [...] 1 Refills, Maintenance, 04/05/21 10:17:00 EST, [id number], Partial fill upon patient request if the prescription is for a schedule II opioid drug., 2 puffs Inhalation Every 6 hours, 178, cm, ... Start Date: 04/05/21 Status: Ordered apixaban 5 mg oral tablet 1 tablet = 5 mg, By Mouth, 2 times a day, # 60 tablet, 2 Refills, Maintenance, 10/24/22 14:55:00 EDT, Tablet, [facility]/pharmacy #[id number], Partial fill upon patient request if the prescription is for a schedule II opioid drug., 180, cm, 10/03/22 9:16:00 EDT, H... Start Date: 10/24/22 Status: Ordered betamethasone-clotrimazole 0.05%-1% topical cream See Instructions, Apply gentle coat apply twice daily and then wash hands, # 45 Gm, 0 Refills, Maintenance, 08/05/22 10:04:00 EDT, [facility]/pharmacy #[id number], Partial fill upon [...] Mouth, Daily, # 90 tablet, 1 Refills, [facility], 90, TAKE 1 TABLET BY MOUTH EVERY [...] Refills, Maintenance, 07/11/22 13:19:00 EST, [facility], 178, cm, 11/29/21 11:03:00 EDT, Height Start Date: 07/11/22 Status: Ordered Flonase 50 mcg/inh nasal spray 2 sprays, Nares, Both, Daily in AM, # 15.8 mL, 5 Refills, Maintenance, 10/29/21 8:58:00 EDT, [place],[facility]/pharmacy #[id number], Partial fill upon patient request if the prescription is for a schedule II opioid drug., 2 sprays Nares, Both Daily in AM, 178, cm,... Start Date: 10/29/21 Status: Ordered folic acid 1 mg oral tablet 1, tablet, By Mouth, Daily, # 90 tablet, Refills 1, Maintenance, 09/10/22 11:41:00 EDT, Route to Pharmacy Electronically, [facility] [address], 180, cm, 09/05/22 11:52:00 EDT, Height, 91.9, [...] 09/05/22 16:56:00 EDT, Route to Pharmacy Electronically, [facility], Partial fillupon patient request if the prescription is for a s... Start Date: 09/05/22 Stop Date: 09/07/22 Status: Ordered Symbicort 160mcg/4.5mcg Inhaler 2, puffs, Inhalation, 2 times a day, # 1 each, Refills 5, Tot. Refills 5, Maintenance, 09/18/20 8:45:00 EDT, Aerosol, Route to Pharmacy Electronically, [id number], [facility]/pharmacy #[id number], 178, cm, 09/18/20 [...] Active 1given comprehesive chol diet handout 2counsel [id number] Social History Social History Type Response Smoking Status 10 or more cigarette s (1/2 pack or more)/day in last 30 days; Interested in cessation: No; Patient wants NRT during admission No entered on: 10/03/22 Sex Patient Care team information Care Team Personnel Name: Rojelio Gallardo MD Position: S Physician - Primary Care Member Role: PCP Address: Address: [address] [place] [address]- Care Team Related Persons Name: LIZETTE RAMIREZ Address: [address] [place] [address] Name: HAILEY JOHNSON Address: [place] [id number]
--- OUTSIDE RECORDS SUMMARY | 2022-12-21 14:28 | XMS_ITS | Continuity of Care Document ---
Author Name Unknown Organization [facility] Eric lt Address [address] [place] [address]- Care Team Providers Care Geophysics Scientist Name Role Phone Paulina BOWER, Rojelio Glover Primary Care Physician [phone] Encounter [facility] Date(s): 03/25/21 - 04/24/21 [facility] Adult [address] [place] [address]- Allergies, Adverse Reactions, Alerts Substance Reaction Severity [...] (oldterm) 05/04/99 Given 1Result Comment: [04/05/2018] [facility] [id number] Medications Albuterol (Eqv-ProAir HFA) 90 mcg/inh inhalation aerosol 2 puffs, Inhalation, Every 6 hours, # 1 each, 1 Refills, Maintenance, 04/05/21 10:17:00 EST, [facility]/pharmacy #[id number], Partial fill upon patient request if the [...] 03/18/21 11:00:00 EST, Route to Pharmacy Electronically, [facility]/pharmacy #[id number], Partial fill upon patient request if the prescription is for a schedule II opioid drug.... Start Date: 03/18/21 Status: Ordered folic acid 1 mg oral tablet 1 mg, 1, tablet, By Mouth, Daily, # 30 tablet, Refills 5, Tot. Refills 5, Maintenance, 09/18/20 8:40:00 EDT, Route to Pharmacy Electronically, [facility]/pharmacy #[id number], Partial fill upon patient [...] 1 Refills, Maintenance, 04/05/21 10:18:00 EST, Tablet, [facility]/pharmacy #[id number], Partial fill upon patient request if the prescription is for a schedule II opioid drug., 1 tablet By Mouth Daily, 178, cm, 04/05/21 10:0... Start Date: 04/05/21 Status: Ordered naltrexone 50 mg oral tablet 1 tablet = 50 mg, By Mouth, Daily, # 30 tablet, 1 Refills, Maintenance, 03/26/21 18:33:00 EST, Tablet, [facility]/pharmacy #0693, Partial fill upon patient [...] 8:45:00 EDT, Aerosol, Route to Pharmacy Electronically, [id number], [facility]/pharmacy #[id number], 178, cm, 09/18/20 8:15:00 EDT, Height, 77... Start Date: 09/18/20 Status: Ordered thiamine 100 mg oral tablet 100 mg, 1, tablet, By Mouth, Daily, # 30 tablet, Refills 5, Tot. Refills 5, Maintenance, 03/18/21 11:01:00 EST, Route to Pharmacy Electronically, [facility]/pharmacy #[id number], Partial fill upon patient requestif the prescription is for a schedule II opioid ayo... Start Date: 03/18/21 Status: Ordered thiamine 100 mg oral tablet 100 mg, 1, tablet, By Mouth, Daily, # 30 tablet, Refills 5, Tot. Refills 5, Maintenance, 09/18/20 8:40:00 EDT, Route to Pharmacy Electronically, [facility]/pharmacy #[id number], Partial fill upon patient [...] Active 1given comprehesive chol diet handout 2counsel [id number] Social History Social History Type Response Smoking Status 10 or more cigarette s (1/2 pack or more)/day in last 30 days entered on: 04/05/18 Sex
--- OUTSIDE RECORDS SUMMARY | 2022-12-21 14:28 | XMS_ITS | Continuity of Care Document ---
Author Name Unknown Organization [facility] Eric lt Address [address] [place] [address]- Care Team Providers Care Antique Furniture Restorer Name Role Phone Paulina BOWER, Rojelio Glover Primary Care Physician Encounter [facility] Date(s): 01/22/21 - 02/21/21 [facility] Adult [address] [place] [address]- Allergies, Adverse Reactions, Alerts Substance Reaction Severity [...] (oldterm) 05/04/99 Given 1Result Comment: [04/05/2018] [facility] [id number] Medications Albuterol (Eqv-ProAir HFA) 90 mcg/inh inhalation aerosol 2 puffs, Inhalation, Every 6 hours, # 1 each, 5 Refills, Maintenance, 09/18/20 8:44:00 EDT, [facility]/pharmacy #[id number], Partial fill upon patient request if the [...] 8:45:00 EDT, Aerosol, Route to Pharmacy Electronically, [id number], [facility]/pharmacy #[id number], 178, [...] Active 1given comprehesive chol diet handout 2counsel [id number] Social History Social History Type Response Smoking Status 10 or more cigarette s (1/2 pack or more)/day in last 30 days entered on: 04/05/18 Sex
--- OUTSIDE RECORDS SUMMARY | 2022-12-21 14:28 | XMS_ITS | Continuity of Care Document ---
Author Name Unknown Organization [facility] Eric lt Address [address] [place] [address]- Care Team Providers Care Field Hand Name Role Phone Paulina BOWER, Rojelio Glover Primary Care Physician [phone] [place] [facility] [place]s): 07/10/21 - 08/09/21 [facility] Adult [address] [place] [address]- Allergies, Adverse Reactions, Alerts Substance Reaction Severity [...] (oldterm) 05/04/99 Given 1Result Comment: [04/05/2018] [facility] [id number] Medications Albuterol (Eqv-ProAir HFA) 90 mcg/inh inhalation aerosol 2 puffs, Inhalation, Every 6 hours, # 1 each, 1 Refills, Maintenance, 04/05/21 10:17:00 EST, [facility]/pharmacy #[id number], Partial fill upon patient request if the [...] tablet, 0 Refills, Maintenance, 07/17/21 10:03:00 EDT, [facility]/pharmacy #[id number], Partial fill upon patient request if the prescription is for a schedule II opioid drug., 178, cm, 07/17/21 9:57:00 EDT, Height, 77, kg,... Start Date: 07/17/21 Status: Ordered folic acid 1 mg oral tablet 1 mg, 1, tablet, By Mouth, Daily, # 90 tablet, Refills 1, Tot. Refills 1, Maintenance, 08/08/21 13:05:00 EDT, Route to Pharmacy Electronically, [facility]/pharmacy #[id number], Partial fill upon [...] tablet, 2 Refills, Maintenance, 08/08/21 13:08:00 EDT, [facility]/pharmacy #[id number], Partial fill upon patient request if the prescription is for a schedule... Start Date: 08/08/21 Status: Ordered multivitamin Multiple Vitamins oral tablet 1 tablet, By Mouth, Daily, # 90 tablet, 1 Refills, Maintenance, 04/05/21 10:18:00 EST, Tablet, [facility]/pharmacy #[id number], Partial fill upon patient request if the prescription is for a schedule II opioid drug., 1 tablet By Mouth Daily, 178, cm, 04/05/21 10:0... Start Date: 04/05/21 Status: Ordered naltrexone 50 mg oral tablet 1 tablet = 50 mg, By Mouth, Daily, # 30 tablet, 5 Refills, Maintenance, 05/17/21 8:18:00 EST, Tablet, [facility]/pharmacy #0693, Partial fill upon patient request if the prescription is for a schedule II opioid drug., 178, cm, 05/17/21 7:39:00 EST, Height, 7... Start Date: 05/17/21 Status: Ordered Symbicort 160mcg/4.5mcg Inhaler 2, puffs, Inhalation, 2 times a day, # 1 each, Refills 5, Tot. Refills 5, Maintenance, 09/18/20 8:45:00 EDT, Aerosol, Route to Pharmacy Electronically, [id number], [facility]/pharmacy #[id number], 178, cm, 09/18/20 8:15:00 EDT, Height, 77... Start Date: 09/18/20 Status: Ordered thiamine 100 mg oral tablet 100 mg, 1, tablet, By Mouth, Daily, # 90 tablet, Refills 1, Tot. Refills 1, Maintenance, 08/08/21 13:05:00 EDT, Route to Pharmacy Electronically, [facility]/pharmacy #[id number], Partial fill upon [...] Active 1given comprehesive chol diet handout 2counsel [id number] Social History Social History Type Response Smoking Status 10 or more cigarette s (1/2 pack or more)/day in last 30 days entered on: 04/05/18 Sex
--- OUTSIDE RECORDS SUMMARY | 2022-12-21 14:28 | XMS_ITS | Continuity of Care Document ---
Author Name Unknown Organization [facility] Eric lt Address [address] [place] [address]- Care Team Providers Care Supervisor Endless Track Vehicle Name Role Phone Rojelio Gallardo MD Primary Care Physician [place] [facility] [place](s): 05/17/21 - 05/24/21 [facility] Adult [address] [place] [address]- Attending Physician: Rojelio Gallardo MD Allergies, Adverse [...] Vaccine (oldterm) 05/04/99 Given 1Result Comment: [04/05/2018] [facility] [id number] Medications Albuterol (Eqv-ProAir HFA) 90 mcg/inh inhalation aerosol 2 puffs, Inhalation, Every 6 hours, # 1 each, 1 Refills, Maintenance, 04/05/21 10:17:00 EST, [facility]/pharmacy #[id number], Partial fill upon patient request if the [...] 8:45:00 EDT, Aerosol, Route to Pharmacy Electronically, [id number], [facility]/pharmacy #[id number], 178, cm, 09/18/20 8:15:00 EDT, Height, 77... Start Date: 09/18/20 Status: Ordered thiamine 100 mg oral tablet 100 mg, 1, tablet, By Mouth, Daily, # 30 tablet, Refills 5, Tot. Refills 5, Maintenance, 03/18/21 11:01:00 EST, Route to Pharmacy Electronically, [facility]/pharmacy #[id number], Partial fill upon patient requestif the prescription is for a schedule II opioid ayo... Start Date: 03/18/21 Status: Ordered thiamine 100 mg oral tablet 100 mg, 1, tablet, By Mouth, Daily, # 30 tablet, Refills 5, Tot. Refills 5, Maintenance, 09/18/20 8:40:00 EDT, Route to Pharmacy Electronically, [facility]/pharmacy #[id number], Partial fill upon patient request [...] Active 1given comprehesive chol diet handout 2counsel [id number] Vital Signs Most recent to oldest [Reference Range]: 1 Height 178 cm (05/17/21 7:39 AM) Weight 80 kg (05/17/21 7:39 AM) Body Mass Index [18.5-24.99] 25.25 *H* (05/17/21 7:39 AM) Social History Social History Type Response Smoking Status 10 or more cigarette s (1/2 pack or more)/day in last 30 days entered on: 04/05/18 Sex
--- OUTSIDE RECORDS SUMMARY | 2022-12-21 14:28 | XMS_ITS | Continuity of Care Document ---
Author Name Unknown Organization [facility] Jonathan Eric lt Address [address] [place] [address]- Care Team Providers Care Drywall Applicator Name Role Phone Rojelio Gallardo MD Primary Care Physician [place] [facility] [place] 05/[place]/21 [facility] Adult [address] [place] [address]- Attending Physician: Rojelio Gallardo MD Allergies, Adverse [...] Comment: [04/05/2018] [facility] [id number] Medications Albuterol (Eqv-ProAir HFA) 90 mcg/inh inhalation aerosol 2 puffs, Inhalation, Every 6 hours, # 1 each, 1 Refills, Maintenance, 04/05/21 10:17:00 EST, [facility]/pharmacy #9500, Partial fill upon patient request if the [...] 8:45:00 EDT, Aerosol, Route to Pharmacy Electronically, [id number], [facility]/pharmacy #0693, 178, cm, 09/18/20 8:15:00 EDT, Height, 77... Start Date: 09/18/20 Status: Ordered thiamine 100 mg oral tablet 100 mg, 1, tablet, By Mouth, Daily, # 30 tablet, Refills 5, Tot. Refills 5, Maintenance, 03/18/21 11:01:00 EST, Route to Pharmacy Electronically, [facility]/pharmacy #0693, Partial fill upon patient requestif the prescription is for a schedule II opioid ayo... Start Date: 03/18/21 Status: Ordered thiamine 100 mg oral tablet 100 mg, 1, tablet, By Mouth, Daily, # 30 tablet, Refills 5, Tot. Refills 5, Maintenance, 09/18/20 8:40:00 EDT, Route to Pharmacy Electronically, [facility]/pharmacy #0693, Partial fill upon patient request [...] Active 1given comprehesive chol diet handout 2counsel [id number] Social History Social History Type Response Smoking Status 10 or more cigarette s (1/2 pack or more)/day in last 30 days entered on: 04/05/18 Sex
--- OUTSIDE RECORDS SUMMARY | 2022-12-21 14:28 | XMS_ITS | Continuity of Care Document ---
Author Name Unknown Organization [facility] Address [address] [place] [address]- Care Team Providers Care Sap Bpc Architect Name Role Phone Rojelio Gallardo MD Primary Care Physician [place] [facility] [place](s): 06/11/19 - 10/09/19 [facility] [address] [place] [address] [facility] Attending Physician: Vi Reyna MD Admitting Physician: Vi Reyna MD Referring Physician: Rojelio Gallardo MD Allergies, [...] [facility] [id number] Medications albuterol CFC free 90 mcg/inh inhalation [...] 11/19/18 13:19:18 EDT, Route to Pharmacy Electronically, [id number], [facility]/pharmacy #0693 Start Date: 11/19/18 Status: Ordered multivitamin [...] 11/19/18 13:18:27 EDT, Route to Pharmacy Electronically, [id number], [facility]/pharmacy #0693 Start Date: 11/19/18 Status: Ordered Tylenol [...] Active 1given comprehesive chol diet handout 2counsel [id number] Social History Social History Type Response Smoking Status 10 or more cigarette s (1/2 pack or more)/day in last 30 days entered on: 04/05/18 Sex
--- OUTSIDE RECORDS SUMMARY | 2022-12-21 14:28 | XMS_ITS | Continuity of Care Document ---
Author Name Unknown Organization [facility] Address [address] [place] [address]- Care Team Providers Care Planimeter Operator Name Role Phone Paulina BOWER, Rojelio Glover Primary Care Physician [place] [facility] [place] 09/17/22 - 10/17/[address] [address]- Attending Physician: AdmJose wong Admitting Physician: Admtr, Ar8 Referring Physician: Admtr, [...] Vaccine (oldterm) 05/04/99 Given 1Result Comment: [04/05/2018] [facility] [id number] Medications acetaminophen 325 mg oral tablet 975 mg, By Mouth, Once, PRN, Refills 0, Maintenance, Pain , Moderate, 09/05/22 16:50:00 EDT, Partial fill upon patient request if the prescription is for a schedule II opioid drug. Start Date: 09/05/22 Status: Ordered Albuterol (Eqv-ProAir HFA) 90 mcg/inh inhalation aerosol 2 puffs, Inhalation, Every 6 hours, # 1 each, 1 Refills, Maintenance, 04/05/21 10:17:00 EST, [facility]/pharmacy #0693, Partial fill upon patient request if the prescription is for a schedule II opioid drug., 2 puffs Inhalation Every 6 hours, 178, cm, ... Start Date: 04/05/21 Status: Ordered betamethasone-clotrimazole 0.05%-1% topical cream See Instructions, Apply gentle coat apply twice daily and then wash hands, # 45 Gm, 0 Refills, Maintenance, 08/05/22 10:04:00 EDT, [facility]/pharmacy #0693, Partial fill upon patient request if [...] Mouth, Daily, # 90 tablet, 1 Refills, [facility] STORE 42263, 90, TAKE 1 TABLET BY MOUTH EVERY DAY, 178, cm, 08/08/21 12:59:00 EDT, Height Start Date: 10/17/21 Status: Ordered Eliquis Starter Pack 5 mg oral tablet 2 tablet = 10 mg, By Mouth, 2 times a day, followed by 1 tablet by mouth twice daily for 23 days, #74 tablet, 0 Refills, Maintenance, 08/06/22 5:55:00 EDT, [facility]/pharmacy #0693, Partial fill upon patient request if the prescription is for a schedule II... Start Date: 08/06/22 Stop Date: 08/13/22 Status: Ordered escitalopram 20 mg oral tablet 1 tablet, By Mouth, Daily, # 90 tablet, 1 Refills, Maintenance, 07/11/22 13:19:00 EST, [facility], 178, cm, 11/29/21 11:03:00 EDT, Height Start Date: 07/11/22 Status: Ordered Flonase 50 mcg/inh nasal spray 2 sprays, Nares, Both, Daily in AM, # 15.8 mL, 5 Refills, Maintenance, 10/29/21 8:58:00 EDT, [place], Partial fill upon patient request if the prescription is for a schedule II opioid drug., 2 sprays Nares, Both Daily in AM, 178, cm,... Start Date: 10/29/21 Status: Ordered folic acid 1 mg oral tablet 1, tablet, By Mouth, Daily, # 90 tablet, Refills 1, Maintenance, 09/10/22 11:41:00 EDT, Route to Pharmacy Electronically, [facility], 180, cm, 09/05/22 11:52:00 EDT, Height, 91.9, [...] 5 Refills, Maintenance, 10/29/21 8:57:00 EDT, Tablet, [facility]/pharmacy #0693, Partial fill upon patient request if the prescription is for a schedule II opioid drug., 178, cm, 10/29/21 8:40:00 EDT, Height Start Date: 10/29/21 Status: Ordered oxyCODONE 5 mg oral tablet 5 mg, By Mouth, Every 6 hours, PRN, # 10 tablet, Refills 0, Tot. Refills 0, Soft Stop, Pain , Moderate, 09/05/22 16:56:00 EDT, Route to Pharmacy Electronically, [facility], Partial fillupon patient request if the prescription is for a s... Start Date: 09/05/22 Stop Date: 09/07/22 Status: Ordered Symbicort 160mcg/4.5mcg Inhaler 2, puffs, Inhalation, 2 times a day, # 1 each, Refills 5, Tot. Refills 5, Maintenance, 09/18/20 8:45:00 EDT, Aerosol, Route to Pharmacy Electronically, [id number], [facility]/pharmacy #0693, 178, cm, 09/18/20 8:15:00 EDT, Height, [...] Active 1given comprehesive chol diet handout 2counsel [id number] Social History Social History Type Response Smoking Status 10 or more cigarette s (1/2 pack or more)/day in last 30 days; Interested in cessation: No; Patient wants NRT during admission No entered on: 10/03/22 Sex Patient Care team information Care Team Personnel Name: Paulina BOWER, Rojelio Glover Position: S Physician - Primary Care Member Role: PCP Address: Address: [address] [place] [address] [place] [address]- [place] Care Team Related Persons Name: LIZETTE RAMIREZ Address: home [address] [place] [id number] Name: HAILEY JOHNSON Address: [place] [address]
--- OUTSIDE RECORDS SUMMARY | 2022-12-21 14:28 | XMS_ITS | Continuity of Care Document ---
Author Name Unknown Organization [facility] Eric lt Address [address] [place] [address]- Care Team Providers Care Strategic Planner Name Role Phone Paulina BOWER, Rojelio Glover Primary Care Physician [phone] Encounter [facility] Date(s): 02/04/22 - 03/06/22 [facility] Adult [address] [place] [address]- Attending Physician: Admtr, Ar8 Allergies, Adverse Reactions, Alerts Substance Reaction Severity [...] Comment: [04/05/2018] [facility] [id number] Medications Albuterol (Eqv-ProAir HFA) 90 mcg/inh inhalation aerosol 2 puffs, Inhalation, Every 6 hours, # 1 each, 1 Refills, Maintenance, 04/05/21 10:17:00 EST, [facility]/pharmacy #2286, Partial fill upon patient request if the [...] Refills, [facility] STORE 31313, 90, TAKE 1 TABLET BY MOUTH EVERY DAY, 178, cm, 08/08/21 12:59:00 EDT, Height Start Date: 10/17/21 Status: Ordered escitalopram 20 mg oral tablet 1 tablet = 20 mg, By Mouth, Daily, # 90 tablet, 1 Refills, Maintenance, 08/19/21 13:44:00 EDT, [facility]/pharmacy #0693, Partial fill upon patient request if the prescription is for a schedule II opioid drug., 178, cm, 08/08/21 12:59:00 EDT, Height, 77, kg,... Start Date: 08/19/21 Status: Ordered Flonase 50 mcg/inh nasal spray 2 sprays, Nares, Both, Daily in AM, # 15.8 mL, 5 Refills, Maintenance, 10/29/21 8:58:00 EDT, [place],[facility]/pharmacy #0693, Partial fill [...] 13:05:00 EDT, Route to Pharmacy Electronically, [facility]/pharmacy #0693, Partial [...] 2 Refills, Maintenance, 08/08/21 13:08:00 EDT, [facility]/pharmacy #0693, [...] patch, 1 Refills, Maintenance, 03/06/22 16:58:00 EDT, [place], [place] - [id number], Partial fill upon patient request if the prescription is for a schedul... Start Date: 03/06/22 Status: Ordered Symbicort 160mcg/4.5mcg Inhaler 2, puffs, Inhalation, 2 times a day, # 1 each, Refills 5, Tot. Refills 5, Maintenance, 09/18/20 8:45:00 EDT, Aerosol, Route to Pharmacy Electronically, [id number], [facility]/pharmacy #0693, 178, cm, 09/18/20 8:15:00 EDT, Height, 77... Start Date: 09/18/20 Status: Ordered thiamine 100 mg oral tablet 100 mg, 1, tablet, By Mouth, Daily, # 90 tablet, Refills 3, Tot. Refills 3, Maintenance, 03/06/22 16:57:00 EDT, Route to Pharmacy Electronically, [place], [place] - [id number], Partial fill upon patient request if the [...] Active 1given comprehesive chol diet handout 2counsel [id number] Procedures Procedure Date Related Diagnosis Body Site Status CXR 1 03/22/09 Completed bone scan 2 01/31/08 Completed 1nad 2positive occult fracture right wrist Social History Social History Type Response Smoking Status 10 or more cigarette s (1/2 pack or more)/day in last 30 days entered on: 04/05/18 Sex Patient Care team information Personnel Name: Paulina BOWER, Rojelio Glover Address: Address: [address] [place] [id number]
--- OUTSIDE RECORDS SUMMARY | 2022-12-21 14:28 | XMS_ITS | Continuity of Care Document ---
Author Name Unknown Organization [facility] Eric lt Address [address] [place] [address]- Care Team Providers Care Functional Director Name Role Phone Rojelio Gallardo MD Primary Care Physician [phone] [place] [facility] [place](s): 06/07/21 - 08/07/21 [facility] Adult [address] [place] [address]- Attending Physician: Rojelio Gallardo MD Allergies, Adverse [...] Vaccine (oldterm) 05/04/99 Given 1Result Comment: [04/05/2018] [facility] [id number] Medications Albuterol (Eqv-ProAir HFA) 90 mcg/inh inhalation aerosol 2 puffs, Inhalation, Every 6 hours, # 1 each, 1 Refills, Maintenance, 04/05/21 10:17:00 EST, [facility]/pharmacy #2422, Partial fill upon patient request if the [...] 8:45:00 EDT, Aerosol, Route to Pharmacy Electronically, [id number], [facility]/pharmacy #0693, 178, cm, 09/18/20 8:15:00 EDT, Height, 77... Start Date: 09/18/20 Status: Ordered thiamine 100 mg oral tablet 100 mg, 1, tablet, By Mouth, Daily, # 30 tablet, Refills 5, Tot. Refills 5, Maintenance, 03/18/21 11:01:00 EST, Route to Pharmacy Electronically, [facility]/pharmacy #0693, Partial fill upon patient requestif the prescription is for a schedule II opioid ayo... Start Date: 03/18/21 Status: Ordered thiamine 100 mg oral tablet 100 mg, 1, tablet, By Mouth, Daily, # 30 tablet, Refills 5, Tot. Refills 5, Maintenance, 09/18/20 8:40:00 EDT, Route to Pharmacy Electronically, [facility]/pharmacy #0693, Partial fill upon patient request [...] Active 1given comprehesive chol diet handout 2counsel [id number] Social History Social History Type Response Smoking Status 10 or more cigarette s (1/2 pack or more)/day in last 30 days entered on: 04/05/18 Sex
--- OUTSIDE RECORDS SUMMARY | 2022-12-21 14:28 | XMS_ITS | Continuity of Care Document ---
Author Name Unknown Organization [facility] Address [address] [place] [address] adriana, [address] [place] [address]- Care Team Providers Care Vehicle Modification Technician Name Role Phone Paulina BOWER, Rojelio Glover Primary Care Physician [phone] Encounter [facility] Date(s): 10/06/22 - 11/05/22 [facility] [address] [place] [address], [address] [place] [address]- Allergies, Adverse Reactions, Alerts No Known Medication [...] [facility] [id number] Medications acetaminophen 325 mg oral tablet 975 [...] 1 Refills, Maintenance, 04/05/21 10:17:00 EST, [facility], Partial fill upon patient request if the prescription is for a schedule II opioid drug., 2 puffs Inhalation Every 6 hours, 178, cm, ... Start Date: 04/05/21 Status: Ordered apixaban 5 mg oral tablet 1 tablet = 5 mg, By Mouth, 2 times a day, # 60 tablet, 2 Refills, Maintenance, 10/24/22 14:55:00 EDT, Tablet, [facility]/pharmacy #0693, Partial fill upon patient request if the prescription is for a schedule II opioid drug., 180, cm, 10/03/22 9:16:00 EDT, H... Start Date: 10/24/22 Status: Ordered betamethasone-clotrimazole 0.05%-1% topical cream See Instructions, Apply gentle coat apply twice daily and then wash hands, # 45 Gm, 0 Refills, Maintenance, 08/05/22 10:04:00 EDT, [facility]/pharmacy #0693, Partial fill upon patient request [...] Mouth, Daily, # 90 tablet, 1 Refills, [facility] ST[facility] 54565, 90, TAKE 1 TABLET BY MOUTH EVERY DAY, 178, cm, 08/08/21 12:59:00 EDT, Height Start Date: 10/17/21 Status: Ordered Eliquis Starter Pack 5 mg oral tablet 2 tablet = 10 mg, By Mouth, 2 times a day, followed by 1 tablet by mouth twice daily for 23 days, #74 tablet, 0 Refills, Maintenance, 08/06/22 5:55:00 EDT, [facility]/pharmacy #0693, Partial fill upon patient request if the prescription is for a schedule II... Start Date: 08/06/22 Stop Date: 08/13/22 Status: Ordered escitalopram 20 mg oral tablet 1 tablet, By Mouth, Daily, # 90 tablet, 1 Refills, Maintenance, 07/11/22 13:19:00 EST, [facility], 178, cm, 11/29/21 11:03:00 EDT, Height Start Date: 07/11/22 Status: Ordered Flonase 50 mcg/inh nasal spray 2 sprays, Nares, Both, Daily in AM, # 15.8 mL, 5 Refills, Maintenance, 10/29/21 8:58:00 EDT, [place],[facility]/pharmacy #0693, Partial fill upon patient request if the prescription is for a schedule II opioid drug., 2 sprays Nares, Both Daily in AM, 178, cm,... Start Date: 10/29/21 Status: Ordered folic acid 1 mg oral tablet 1, tablet, By Mouth, Daily, # 90 tablet, Refills 1, Maintenance, 09/10/22 11:41:00 EDT, Route to Pharmacy Electronically, [facility], 180, cm, 09/05/22 11:52:00 EDT, Height, 91.9, [...] 5 Refills, Maintenance, 10/29/21 8:57:00 EDT, Tablet, [facility]/pharmacy #0693, Partial fill upon patient request if the prescription is for a schedule II opioid drug., 178, cm, 10/29/21 8:40:00 EDT, Height Start Date: 10/29/21 Status: Ordered oxyCODONE 5 mg oral tablet 5 mg, By Mouth, Every 6 hours, PRN, # 10 tablet, Refills 0, Tot. Refills 0, Soft Stop, Pain , Moderate, 09/05/22 16:56:00 EDT, Route to Pharmacy Electronically, [facility], Partial fillupon patient request if the prescription is for a s... Start Date: 09/05/22 Stop Date: 09/07/22 Status: Ordered Symbicort 160mcg/4.5mcg Inhaler 2, puffs, Inhalation, 2 times a day, # 1 each, Refills 5, Tot. Refills 5, Maintenance, 09/18/20 8:45:00 EDT, Aerosol, Route to Pharmacy Electronically, [id number], [facility]/pharmacy #0693, 178, cm, 09/18/20 8:15:00 EDT, [...] Active 1given comprehesive chol diet handout 2counsel [id number] Social History Social History Type Response Smoking Status 10 or more cigarette s (1/2 pack or more)/day in last 30 days; Interested in cessation: No; Patient wants NRT during admission No entered on: 10/03/22 Sex Patient Care team information Care Team Personnel Name: Rojelio Gallardo MD Position: S Physician - Primary Care Member Role: PCP Address: Address: [address] [place] [address]- Care Team Related Persons Name: LIZETTE RAMIREZ Address: home [address] [place] [address] Name: HAILEY JOHNSON Address: [place] [id number]
--- OUTSIDE RECORDS SUMMARY | 2022-12-21 14:28 | XMS_ITS | Continuity of Care Document ---
Author Name Unknown Organization [facility] Jonathan Eric lt Address [address] [place] [address]- Care Team Providers Care Hand Cigar Maker Name Role Phone Rojelio Gallardo MD Primary Care Physician Encounter [facility] [place] Date(s): 05/17/21 - 07/17/21 [facility] Adult [address] [place] [address]- Attending Physician: Rojelio Gallardo MD Allergies, Adverse [...] 1Result Comment: [04/05/2018] [facility] [id number] Medications Albuterol (Eqv-ProAir HFA) 90 mcg/inh inhalation aerosol 2 puffs, Inhalation, Every 6 hours, # 1 each, 1 Refills, Maintenance, 04/05/21 10:17:00 EST, [facility]/pharmacy #0632, Partial fill upon patient request if the [...] 8:45:00 EDT, Aerosol, Route to Pharmacy Electronically, [id number], [facility]/pharmacy #0693, 178, cm, 09/18/20 8:15:00 EDT, Height, 77... Start Date: 09/18/20 Status: Ordered thiamine 100 mg oral tablet 100 mg, 1, tablet, By Mouth, Daily, # 30 tablet, Refills 5, Tot. Refills 5, Maintenance, 03/18/21 11:01:00 EST, Route to Pharmacy Electronically, [facility]/pharmacy #0693, Partial fill upon patient requestif the prescription is for a schedule II opioid ayo... Start Date: 03/18/21 Status: Ordered thiamine 100 mg oral tablet 100 mg, 1, tablet, By Mouth, Daily, # 30 tablet, Refills 5, Tot. Refills 5, Maintenance, 09/18/20 8:40:00 EDT, Route to Pharmacy Electronically, [facility]/pharmacy #0693, Partial fill upon patient request [...] Active 1given comprehesive chol diet handout 2counsel [id number] Social History Social History Type Response Smoking Status 10 or more cigarette s (1/2 pack or more)/day in last 30 days entered on: 04/05/18 Sex
--- OUTSIDE RECORDS SUMMARY | 2022-12-21 14:29 | XMS_ITS | Continuity of Care Document ---
Author Name Unknown Organization [facility] Address [address] [place] [address] adriana, [address] [place] [address]- Care Team Providers Care Preconstruction Manager Name Role Phone Paulina BOWER, Rojelio Glover Primary Care Physician [facility]counter [facility] Date(s): 09/17/22 - 10/17/22 [facility] [address] [place] [address], [address] [place] [address]- Allergies, Adverse Reactions, Alerts No Known Medication [...] 1Result Comment: [04/05/2018] [facility] [id number] Medications acetaminophen 325 mg oral tablet 975 [...] # 90 tablet, 1 Refills, [facility], 90, TAKE 1 TABLET BY MOUTH EVERY [...] Refills, Maintenance, 07/11/22 13:19:00 EST, [facility], 178, cm, 11/29/21 11:03:00 EDT, Height Start Date: 07/11/22 Status: Ordered Flonase 50 mcg/inh nasal spray 2 sprays, Nares, Both, Daily in AM, # 15.8 mL, 5 Refills, Maintenance, 10/29/21 8:58:00 EDT, [place],[facility]/pharmacy #0693, Partial fill upon patient request if the prescription is for a schedule II opioid drug., 2 sprays Nares, Both Daily in AM, 178, cm,... Start Date: 10/29/21 Status: Ordered folic acid 1 mg oral tablet 1, tablet, By Mouth, Daily, # 90 tablet, Refills 1, Maintenance, 09/10/22 11:41:00 EDT, Route to Pharmacy Electronically, [facility] 20077, 180, cm, 09/05/22 11:52:00 EDT, Height, 91.9, [...] 1 Refills, Maintenance, 08/05/22 10:01:00 EDT, Tablet, [facility]/pharmacy #0693, Partial fill upon patient request if the prescription is for a schedule II opioid drug., 178, cm, 08/05/22 9:49:00 ED... Start Date: 08/05/22 Status: Ordered naltrexone 50 mg oral tablet 1 tablet = 50 mg, By Mouth, Daily, # 30 tablet, 5 Refills, Maintenance, 10/29/21 8:57:00 EDT, Tablet, [facility]/pharmacy #0693, Partial fill upon patient request if the prescription is for a schedule II opioid drug., 178, cm, 10/29/21 8:40:00 EDT, Height Start Date: 10/29/21 Status: Ordered oxyCODONE 5 mg oral tablet 5 mg, By Mouth, Every 6 hours, PRN, # 10 tablet, Refills 0, Tot. Refills 0, Soft Stop, Pain , Moderate, 09/05/22 16:56:00 EDT, Route to Pharmacy Electronically, [facility], Partial fillupon patient request if the prescription is for a s... Start Date: 09/05/22 Stop Date: 09/07/22 Status: Ordered Symbicort 160mcg/4.5mcg Inhaler 2, puffs, Inhalation, 2 times a day, # 1 each, Refills 5, Tot. Refills 5, Maintenance, 09/18/20 8:45:00 EDT, Aerosol, Route to Pharmacy Electronically, [id number], [facility]/pharmacy #0693, 178, cm, 09/18/20 8:15:00 EDT, [...] Active 1given comprehesive chol diet handout 2counsel [id number] Social History Social History Type Response Smoking Status 10 or more cigarette s (1/2 pack or more)/day in last 30 days; Interested in cessation: No; Patient wants NRT during admission No entered on: 10/03/22 Sex Patient Care team information Care Team Personnel Name: Paulina BOWER, Rojelio Glover Position: S Physician - Primary Care Member Role: PCP Address: Address: [address] [place] [address]- Care Team Related Persons Name: LIZETTE RAMIREZ Address: home [address] [place] [id number] Name: HAILEY JOHNSON Address: [place] [address]
--- OUTSIDE RECORDS SUMMARY | 2022-12-21 14:29 | XMS_ITS | Continuity of Care Document ---
Author Name Unknown Organization [facility] Eric lt Address [address] [place] [address]- Care Team Providers Care Dial Brusher Name Role Phone Rojelio Gallardo MD Primary Care Physician Encounter [facility] Date(s): 07/10/21 - 08/15/21 [facility] Adult [address] [place] [address]- Attending Physician: Rojelio Gallardo MD Allergies, Adverse [...] Vaccine (oldterm) 05/04/99 Given 1Result Comment: [04/05/2018] [facility] [id number] Medications Albuterol (Eqv-ProAir HFA) 90 mcg/inh inhalation aerosol 2 puffs, Inhalation, Every 6 hours, # 1 each, 1 Refills, Maintenance, 04/05/21 10:17:00 EST, [facility]/pharmacy #[id number], Partial fill upon patient request if the [...] tablet, 0 Refills, Maintenance, 07/17/21 10:03:00 EDT, [facility]/pharmacy [...] 1 Refills, Maintenance, 04/05/21 10:18:00 EST, Tablet, [facility]/pharmacy #[id number], Partial fill upon patient request if the prescription is for a schedule II opioid drug., 1 tablet By Mouth Daily, 178, cm, 04/05/21 10:0... Start Date: 04/05/21 Status: Ordered naltrexone 50 mg oral tablet 1 tablet = 50 mg, By Mouth, Daily, # 30 tablet, 5 Refills, Maintenance, 05/17/21 8:18:00 EST, Tablet, [facility]/pharmacy #[id number], Partial fill upon patient request if the prescription is for a schedule II opioid drug., 178, cm, 05/17/21 7:39:00 EST, Height, 7... Start Date: 05/17/21 Status: Ordered Symbicort 160mcg/4.5mcg Inhaler 2, puffs, Inhalation, 2 times a day, # 1 each, Refills 5, Tot. Refills 5, Maintenance, 09/18/20 8:45:00 EDT, Aerosol, Route to Pharmacy Electronically, [id number], [facility]/pharmacy #[id number], 178, cm, 09/18/20 8:15:00 EDT, Height, 77... Start Date: 09/18/20 Status: Ordered thiamine 100 mg oral tablet 100 mg, 1, tablet, By Mouth, Daily, # 90 tablet, Refills 1, Tot. Refills 1, Maintenance, 08/08/21 13:05:00 EDT, Route to Pharmacy Electronically, [facility]/pharmacy #[id number], Partial fill upon patient requestif [...] Active 1given comprehesive chol diet handout 2counsel [id number] Social History Social History Type Response Smoking Status 10 or more cigarette s (1/2 pack or more)/day in last 30 days entered on: 04/05/18 Sex
--- OUTSIDE RECORDS SUMMARY | 2022-12-21 14:29 | XMS_ITS | Continuity of Care Document ---
Author Name Unknown Organization [facility] Eric lt Address [address] [place] [address]- Care Team Providers Care Acetylene Operator Name Role Phone Rojelio Gallardo MD Primary Care Physician Encounter [facility] Date(s): 06/17/19 - 10/15/19 [facility] Adult [address] [place] [address]- [facility] Attending Physician: Rojelio Gallardo MD Allergies, Adverse [...] Comment: [04/05/2018] [facility] [id number] Medications albuterol CFC free 90 mcg/inh inhalation aerosol See Instructions, # 18 Unknown, Refills 5 Tot. Refills 5, TAKE 2 PUFFS EVERY 6 HOURS, [facility]/pharmacy #[id number] Start Date: 11/12/18 Status: Ordered Cannabis (Schedule I Substance) 0 Refills, Maintenance, 04/05/18 8:17:12 EST Start Date: 04/05/18 Status: Ordered escitalopram 10 mg oral tablet 1 tablet = 10 mg, By Mouth, Daily, # 30 tablet, 5 Refills, Maintenance, 09/15/19 10:09:00 EDT, Tablet, [facility]/pharmacy #[id number], 178.8, cm, 09/15/19 9:00:00 EDT, Height Start Date: 09/15/19 Status: Ordered folic acid 1 mg oral tablet 1 mg, 1, tablet, By Mouth, Daily, # 30 tablet, Refills 5, Tot. Refills 5, Maintenance, 11/19/18 13:19:18 EDT, Route to Pharmacy Electronically, [id number], [facility]/pharmacy #[id number] Start Date: 11/19/18 Status: Ordered multivitamin [...] 11/19/18 13:18:27 EDT, Route to Pharmacy Electronically, [id number], [facility]/pharmacy #[id number] Start Date: 11/19/18 Status: Ordered Tylenol [...] Active 1given comprehesive chol diet handout 2counsel [id number] Social History Social History Type Response Smoking Status 10 or more cigarette s (1/2 pack or more)/day in last 30 days entered on: 04/05/18 Sex
--- OUTSIDE RECORDS SUMMARY | 2022-12-21 14:29 | XMS_ITS | Continuity of Care Document ---
Author Name Unknown Organization [facility] ter Address [address] [place] [address]- Care Team Providers Care Automotive Detailer Name Role Phone Paulina BOWER, Rojelio Glover Primary Care Physician [phone] Encounter [facility] Date(s): 04/18/19 - 06/08/[address] [address]- [facility] Attending Physician: Vi Reyna MD [...] 1Result Comment: [04/05/2018] [facility] [id number] Medications albuterol CFC free 90 mcg/inh inhalation aerosol See Instructions, # 18 Unknown, Refills 5 Tot. Refills 5, TAKE 2 PUFFS EVERY 6 HOURS, [facility]/pharmacy #[id number] Start Date: 11/12/18 Status: Ordered Cannabis [...] 11/19/18 13:19:18 EDT, Route to Pharmacy Electronically, [id number], [facility]/pharmacy #[id number] Start Date: 11/19/18 Status: Ordered multivitamin Multiple Vitamins oral tablet 1 tablet, By Mouth, Daily, # 30 tablet, 5 Refills, Maintenance, 11/19/18 13:17:51 EDT, Tablet, 1 tablet By Mouth Daily Start Date: 11/19/18 Status: Ordered Symbicort 160mcg/4.5mcg Inhaler 2, puffs, Inhalation, 2 times a day, # 1 each, Refills 5, Tot. Refills 5, Maintenance, 10/22/18 8:22:57 EDT, Route to Pharmacy Electronically, [id number], [facility]/pharmacy #[id number] Start Date: 10/22/18 Status: Ordered thiamine 100 mg oral tablet 100 mg, 1, tablet, By Mouth, Daily, # 30 tablet, Refills 5, Tot. Refills 5, Maintenance, 11/19/18 13:18:27 EDT, Route to Pharmacy Electronically, [id number], [facility]/pharmacy #[id number] Start Date: 11/19/18 Status: Ordered Tylenol [...] Active 1given comprehesive chol diet handout 2counsel [id number] Social History Social History Type Response Smoking Status 10 or more cigarette s (1/2 pack or more)/day in last 30 days entered on: 04/05/18 Sex
--- OUTSIDE RECORDS SUMMARY | 2022-12-21 14:29 | XMS_ITS | Continuity of Care Document ---
Author Name Unknown Organization [facility] Eric lt Address [address] [place] [address]- Care Team Providers Care General Internist And Physician Leader Name Role Phone Paulina BOWER, Rojelio Glover Primary Care Physician Encounter [facility] Date(s): 08/05/22 - 09/04/22 [facility] Adult [address] [place] [address]- Attending Physician: Admtr, Kirill8 Allergies, Adverse Reactions, Alerts No Known Medication [...] Vaccine (oldterm) 05/04/99 Given 1Result Comment: [04/05/2018] [facility] [id number] Medications Albuterol (Eqv-ProAir HFA) 90 mcg/inh inhalation aerosol 2 puffs, Inhalation, Every 6 hours, # 1 each, 1 Refills, Maintenance, 04/05/21 10:17:00 EST, [facility]/pharmacy #[id number], Partial fill upon patient request if the [...] Mouth, Daily, # 90 tablet, 1 Refills, [email or web address], 90, TAKE 1 TABLET BY MOUTH EVERY [...] Refills, Maintenance, 07/11/22 13:19:00 EST, [facility], 178, cm, 11/29/21 11:03:00 EDT, Height Start Date: 07/11/22 Status: Ordered Flonase 50 mcg/inh nasal spray 2 sprays, Nares, Both, Daily in AM, # 15.8 mL, 5 Refills, Maintenance, 10/29/21 8:58:00 EDT, [place], Partial fill upon patient request if the prescription is for a schedule II opioid drug., 2 sprays Nares, Both Daily in AM, 178, cm,... Start Date: 10/29/21 Status: Ordered folic acid 1 mg oral tablet 1 mg, 1, tablet, By Mouth, Daily, # 90 tablet, Refills 1, Tot. Refills 1, Maintenance, 08/08/21 13:05:00 EDT, Route to Pharmacy Electronically, [facility]/pharmacy #0693, Partial fill upon patient request [...] 5 Refills, Maintenance, 10/29/21 8:57:00 EDT, Tablet, [facility]/pharmacy #0693, Partial fill upon patient request if the prescription is for a schedule II opioid drug., 178, cm, 10/29/21 8:40:00 EDT, Height Start Date: 10/29/21 Status: Ordered Symbicort 160mcg/4.5mcg Inhaler 2, puffs, Inhalation, 2 times a day, # 1 each, Refills 5, Tot. Refills 5, Maintenance, 09/18/20 8:45:00 EDT, Aerosol, Route to Pharmacy Electronically, [id number], [facility]/pharmacy #0693, 178, cm, 09/18/20 8:15:00 EDT, [...] Active 1given comprehesive chol diet handout 2counsel [id number] Procedures Procedure Date Related Diagnosis Body Site Status CXR 1 03/22/09 Completed bone scan 2 01/31/08 Completed 1nad 2positive occult fracture right wrist Social History Social History Type Response Smoking Status 10 or more cigarette s (1/2 pack or more)/day in last 30 days entered on: 04/05/18 Sex Cardiology Outpatient Note * Carmen White: PERFORM Event Display: Cardiology Note Office Authored Date: [id number] Radiology * Kayla Gregorio.: PERFORM Event Display: Radiology Results Scanned Authored Date: [id number] Patient Care team information Care Team Personnel Name: Paulina BOWER, Rojelio Glover Position: S Primary Care Physician Member Role: PCP Address: Address: [address] [place] [address]- Care Team Related Persons Name: LISAJMLIZETTE eKating Address: [address] [address] Name: HAILEY JOHNSNO Address: [place] [address]
--- OUTSIDE RECORDS SUMMARY | 2022-12-21 14:29 | XMS_ITS | Continuity of Care Document ---
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 Name Role Phone Paulina BOWER, Rojelio Glover Primary Care Physician Encounter [facility] Date(s): 03/06/22 - 04/05/22 [facility] Adult [address] [place] [address]- Allergies, Adverse Reactions, Alerts Substance Reaction Severity [...] Given 1Result Comment: [04/05/2018] [facility] [id number] Medications Albuterol (Eqv-ProAir HFA) 90 mcg/inh inhalation aerosol 2 puffs, Inhalation, Every 6 hours, # 1 each, 1 Refills, Maintenance, 04/05/21 10:17:00 EST, [facility]/pharmacy #0520, Partial fill upon patient request if the prescription is for a schedule II opioid drug., 2 puffs Inhalation Every 6 hours, 178, cm, 04/05/... Start Date: 04/05/21 Status: Ordered Cannabis (Schedule I Substance) 0 Refills, Maintenance, 04/05/18 8:17:12 EST Start Date: 04/05/18 Status: Ordered Daily Meg oral tablet 1 tablet, By Mouth, Daily, # 90 tablet, 1 Refills, [facility], 90, TAKE 1 TABLET BY MOUTH EVERY DAY, 178, cm, 08/08/21 12:59:00 EDT, Height Start Date: 10/17/21 Status: Ordered escitalopram 20 mg oral tablet 1 tablet = 20 mg, By Mouth, Daily, # 90 tablet, 1 Refills, Maintenance, 08/19/21 13:44:00 EDT, [facility]/pharmacy #0693, Partial fill upon patient request if the prescription is for a schedule II opioid drug., 178, cm, 08/08/21 12:59:00 EDT, Height, 77, kg,... Start Date: 08/19/21 Status: Ordered Flonase 50 mcg/inh nasal spray 2 sprays, Nares, Both, Daily in AM, # 15.8 mL, 5 Refills, Maintenance, 10/29/21 8:58:00 EDT, [place],[facility]/pharmacy #0693, Partial fill upon patient request if the prescription is for a schedule II opioid drug., 2 sprays Nares, Both Daily in AM, 178, cm,... Start Date: 10/29/21 Status: Ordered folic acid 1 mg oral tablet 1 mg, 1, tablet, By Mouth, Daily, # 90 tablet, Refills 1, Tot. Refills 1, Maintenance, 08/08/21 13:05:00 EDT, Route to Pharmacy Electronically, [facility]/pharmacy #0693, Partial fill upon patient [...] tablet, 2 Refills, Maintenance, 08/08/21 13:08:00 EDT, [facility], Partial fill upon patient request if the prescription is for a schedule... Start Date: 08/08/21 Status: Ordered mirtazapine 15 mg oral tablet See Instructions, TAKE 1 TABLET BY MOUTH ONCE DAILY AT BEDTIME, # 30 tablet, 1 Refills, Maintenance, 03/31/22 12:33:00 EST, [facility], 178, cm, 11/29/21 11:03:00 EDT, Height Start Date: 03/31/22 Status: Ordered naltrexone 50 mg oral tablet 1 tablet = 50 mg, By Mouth, Daily, # 30 tablet, 5 Refills, Maintenance, 10/29/21 8:57:00 EDT, [facility] Partial fill upon patient request if the prescription is for a schedule II opioid drug., 178, cm, 10/29/21 8:40:00 EDT, Height Start Date: 10/29/21 Status: Ordered nicotine 21 mg/24 hr transdermal film, extended release See Instructions, Apply one patch to skin in morning. Remove at bedtime., # 30 patch, 1 Refills, Maintenance, 03/06/22 16:58:00 EDT, [place], [place] - [id number], Partial fill upon patient request if the prescription is for a schedul... Start Date: 03/06/22 Status: Ordered Symbicort 160mcg/4.5mcg Inhaler 2, puffs, Inhalation, 2 times a day, # 1 each, Refills 5, Tot. Refills 5, Maintenance, 09/18/20 8:45:00 EDT, Aerosol, Route to Pharmacy Electronically, [id number], [facility] 178, cm, 09/18/20 8:15:00 EDT, Height, 77... Start Date: 09/18/20 Status: Ordered thiamine 100 mg oral tablet 100 mg, 1, tablet, By Mouth, Daily, # 90 tablet, Refills 3, Tot. Refills 3, Maintenance, 03/06/22 16:57:00 EDT, Route to Pharmacy Electronically, [place], [place] - [id number], Partial fill upon patient request if the [...] Active 1given comprehesive chol diet handout 2counsel [id number] Social History Social History Type Response Smoking Status 10 or more cigarette s (1/2 pack or more)/day in last 30 days entered on: 04/05/18 Sex Patient Care team information Care Team Personnel Name: Paulina BOWER, Rojelio Glover Position: [facility] Primary Care Physician Member Role: PCP Address: Address: [address] [place] [address]- Care Team Related Persons Name: LIZETTE RAMIREZ Address: [address] [place] [address] Name: HAILEY JOHNSON Address: [place] [address]
--- OUTSIDE RECORDS SUMMARY | 2022-12-21 14:29 | XMS_ITS | Continuity of Care Document ---
Author Name Unknown Organization [facility] Eric lt Address [address] [place] [address]- Care Team Providers Care Bar Manager Name Role Phone Rojelio Gallardo MD Primary Care Physician Encounter [facility] Date(s): 09/10/20 - 10/10/20 [facility] Adult [address] [place] [address]- Allergies, Adverse Reactions, Alerts Substance Reaction Severity [...] Comment: [04/05/2018] [facility] [id number] Medications Albuterol (Eqv-ProAir HFA) 90 mcg/inh inhalation aerosol 2 puffs, Inhalation, Every 6 hours, # 1 each, 5 Refills, Maintenance, 09/18/20 8:44:00 EDT, [facility]/pharmacy #[id number], Partial fill upon patient request if the [...] tablet, Refills 5, Tot. Refills 5, Maintenance, 05/18/21 8:40:00 EDT, Route to Pharmacy Electronically, [facility] [...] 8:45:00 EDT, Aerosol, Route to Pharmacy Electronically, [id number], [id number], 178, cm, 09/18/20 8:15:00 EDT, [...] Active 1given comprehesive chol diet handout 2counsel Int2isml Social History Social History Type Response Smoking Status 10 or more cigarette s (1/2 pack or more)/day in last 30 days entered on: 04/05/18 Sex
--- OUTSIDE RECORDS SUMMARY | 2022-12-21 14:29 | XMS_ITS | Continuity of Care Document ---
Author Name Unknown Organization [facility] al Address [address] [place] [address]- Care Team Providers Care Teacher Education Director Name Role Phone Paulina BOWER, Rojelio Glover Primary Care Physician Encounter [facility] Date(s): 09/22/19 - 09/22/[address] [address]- [facility] Encounter Diagnosis Syncope(Final) - 09/22/19 Discharge Disposition: A-D/C Home Attending Physician: Estuardo Gongora MD Admitting Physician: Estuardo Gongora MD Referring Physician: Not on Staff, Referring MD Allergies, Adverse Reactions, Alerts Substance Reaction Severity Status Other Environmental Allergy POLLEN Active Immunizations Given and Recorded Vaccine Date Status Refusal Reason tetanus/diphtheria/pertussis, acel(Tdap) 03/24/19 Given tetanus/diphtheria/pertussis, acel(Tdap) 03/22/09 Given influenza virus vaccine, inactivated 03/24/19 Give n influenza virus vaccine, inactivated 1 04/05/18 Gi purvi Tetanus Toxoid Vaccine (oldterm) 05/04/99 Given 1Result Comment: [04/05/2018] [facility] [id number] Medications albuterol CFC free 90 mcg/inh inhalation [...] 11/19/18 13:19:18 EDT, Route to Pharmacy Electronically, [id number], [facility]/pharmacy #[id number] Start Date: 11/19/18 Status: Ordered [...] 11/19/18 13:18:27 EDT, Route to Pharmacy Electronically, [id number], [facility]/pharmacy #0693 Start Date: 11/19/18 Status: Ordered [...] Active 1given comprehesive chol diet handout 2counsel [id number] Results Radiology Reports * Exam Date Time Procedure Performing Provider Status 09/22/19 5:02 PM Chest Portable Colin Alvarez (Verified) Notes: (Chest Portable) Reason For Exam: Other: RESULT: Chest Portable Chest Portable INDICATION: Nausea, chest pain. CLINICAL QUESTION: Pneumonia. CP. 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 Other Objective Findings: alert. Last ETOH drink yesterday. COMPARISON: None. FINDINGS: LINES AND TUBES: None. LUNGS AND PLEURA: Clear lungs. Normal pulmonary vascularity. No pleural effusion. No pneumothorax. HEART, MEDIASTINUM AND EDWARDO: Heart is normal in size. Normal mediastinal and hilar contour. BONES AND SOFT TISSUES: Nondisplaced right posterolateral seventh, eighth and ninth rib fractures, age indeterminate. IMPRESSION: Nondisplaced right posterolateral seventh through ninth rib fractures, age- indeterminate. No pneumothorax. Clear lungs. I have personally reviewed the images and I agree with this report. WSN: [id number] Ordering Physician: Estuardo Gongora Dictated By: Abilio Hernandez MD Dictated Date/Time: 09/22/19 5:30 pm Reviewed By: Estuardo Gallagher MD Signed By: Estuardo Gallagher MD Signed Date/Time: 09/22/19 5:35 pm Transcribed By: PATRICIA Transcribed Date/Time: 09/22/19 5:07 pm Vital Signs Most recent to oldest [Reference Range]: 1 2 3 Height 178 cm (09/22/19 6:43 PM) 178 cm (09/22/19 5:04 PM) 178 cm (09/22/19 3:28 PM) Weight 77 kg (09/22/19 6:43 PM) 77 kg (09/22/19 5:04 PM) 77 kg (09/22/19 3:28 PM) Oxygen Saturation [94-100 %] 97 % (09/22/19 9:07 PM) 97 % (09/22/19 6:43 PM) 97 % (09/22/19 5:04 PM) Pulse Rate [55-90 bpm] 84 bpm (09/22/19 9:07 PM) 85 bpm (09/22/19 6:43 PM) 85 bpm (09/22/19 5:04 PM) Body Mass Index [18.5-24.99] 24.3 (09/22/19 6:43 PM) 24.3 (09/22/19 5:04 PM) Blood Pressure [90-138/55-84 mm Hg] 123/85mm Hg (09/22/19 9:07 PM) 119/86mm Hg (09/22/19 6:43 PM) 106/69mm Hg (09/22/19 5:04 PM) Respiratory Rate [16-30 br/min] 16 br/min (09/22/19 9:07 PM) 17 br/min (09/22/19 6:43 PM) 12 br/min *L* (09/22/19 5:04 PM) Temperature [96.8-100.4 DegF] 97.7 DegF (09/22/19 9:07 PM) 97.3 DegF (09/22/19 3:28 PM) Mode of Delivery (Oxygen) Room air (09/22/19 9:07 PM) Room air (09/22/19 6:43 PM) Room air (09/22/19 5:04 PM) Blood pressure sites Arm, left (09/22/19 3:28 PM) Temperature Route Oral (09/22/19 3:28 PM) Dry Weight 77 kg (09/22/19 6:43 PM) 77 kg (09/22/19 5:04 PM) 77 kg (09/22/19 3:28 PM) Weight Obtained Via Patient/family state d (09/22/19 3:28 PM) Dry Weight Obtained Via Patient/family s tated (09/22/19 3:28 PM) Social History Social History Type Response Smoking Status 10 or more cigarette s (1/2 pack or more)/day in last 30 days entered on: 04/05/18 Sex
--- OUTSIDE RECORDS SUMMARY | 2022-12-21 14:29 | XMS_ITS | Continuity of Care Document ---
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 [id number] Medications albuterol CFC free 90 mcg/inh inhalation aerosol See Instructions, # 18 Unknown, Refills 5 Tot. Refills 5, TAKE 2 PUFFS EVERY 6 HOURS, [facility]/pharmacy #[id number] Start Date: 11/12/18 Status: Ordered Cannabis [...] 11/19/18 13:19:18 EDT, Route to Pharmacy Electronically, [id number], [facility]/pharmacy #0693 Start Date: 11/19/18 Status: [...] 11/19/18 13:18:27 EDT, Route to Pharmacy Electronically, [id number], [facility]/pharmacy #0693 Start Date: 11/19/18 Status: [...] Active 1given comprehesive chol diet handout 2counsel [id number] Procedures Procedure Date Related Diagnosis Body Site Status CXR 1 03/22/09 Completed bone scan 2 01/31/08 Completed 1nad 2positive occult fracture right wrist Social History Social History Type Response Smoking Status 10 or more cigarette s (1/2 pack or more)/day in last 30 days entered on: 04/05/18 Sex
--- OUTSIDE RECORDS SUMMARY | 2022-12-21 14:29 | XMS_ITS | Continuity of Care Document ---
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 Name Role Phone Paulina BOWER, Rojelio Glover Primary Care Physician [phone] Encounter [facility] Date(s): 05/21/21 - 06/20/21 [facility] Adult [address] [place] [address]- Allergies, Adverse Reactions, Alerts Substance Reaction Severity [...] (oldterm) 05/04/99 Given 1Result Comment: [04/05/2018] [facility] [id number] Medications Albuterol (Eqv-ProAir HFA) 90 mcg/inh inhalation aerosol 2 puffs, Inhalation, Every 6 hours, # 1 each, 1 Refills, Maintenance, 04/05/21 10:17:00 EST, [facility]/pharmacy #[id number], Partial fill upon patient request if the [...] 8:45:00 EDT, Aerosol, Route to Pharmacy Electronically, [id number], [facility]/pharmacy #0693, 178, cm, 09/18/20 8:15:00 EDT, Height, 77... Start Date: 09/18/20 Status: Ordered thiamine 100 mg oral tablet 100 mg, 1, tablet, By Mouth, Daily, # 30 tablet, Refills 5, Tot. Refills 5, Maintenance, 03/18/21 11:01:00 EST, Route to Pharmacy Electronically, [facility]/pharmacy #0693, Partial fill upon patient requestif the prescription is for a schedule II opioid ayo... Start Date: 03/18/21 Status: Ordered thiamine 100 mg oral tablet 100 mg, 1, tablet, By Mouth, Daily, # 30 tablet, Refills 5, Tot. Refills 5, Maintenance, 09/18/20 8:40:00 EDT, Route to Pharmacy Electronically, [facility]/pharmacy #0693, Partial fill upon patient [...] Active 1given comprehesive chol diet handout 2counsel [id number] Social History Social History Type Response Smoking Status 10 or more cigarette s (1/2 pack or more)/day in last 30 days entered on: 04/05/18 Sex
[2022-12-21] MEDS: Diphth,Pertus(ACell),Tet Adult 0.5 ML SYRINGE IM (15:16)
[2022-12-21 15:41] VITALS: BP 106/71; PULSE 67; RESP 18; TEMP 36.5; O2SAT 97
[2022-12-21] MEDS: Lidocaine HCl 1 % MPF 5 ML VIAL 10 ML INFILTRATI (16:26)
== END 2022-12-21 17:16 | disposition home or self-care (01) ==
PROVIDERS: Emergency Provider Emergency Medicine; PCP Internal Medicine
DX: S61.212A Laceration without foreign body of right middle finger without damage to nail, initial encounter (principal); S61.214A Laceration without foreign body of right ring finger without damage to nail, initial encounter; M25.531 Pain in right wrist; W27.0XXA Contact with workbench tool, initial encounter; Y93.9 Activity, unspecified; Y92.9 Unspecified place or not applicable; Y99.9 Unspecified external cause status; Z23 Encounter for immunization; Z79.4 Long term (current) use of insulin; Z79.899 Other long term (current) drug therapy
CPT/HCPCS: 12002; 73110; 73130; 90471; 90715; 99282; 99284